=== PATIENT | male | born 1960 ===

== ENCOUNTER 2023-07-07 12:27 | Outpatient (REF) | payer OTHER, SELFPAY ==
[2023-07-07 13:15] LABS: MANUAL DIFF FLAG NO
[2023-07-07 13:21] LABS: Basophils Percent Auto 0.5 % (0-2); Eosinophils Percent Auto 0.5 % (0-4); Hematocrit 41.3 % (42.0-52.0); Hemoglobin 13.7 g/dl (14.0-18.0); Imm Gran Abs Auto 0.01 X10*3/uL (0.00-0.03); Imm Gran Pct Auto 0.2 % (0.0-0.4); Lymphocytes Percent Auto 31.5 % (20-40); Mean Corpuscular HGB Conc 33.2 g/dl (31.0-36.0); Mean Corpuscular Hemoglobin 29.8 pg (27.0-33.0); Mean Platelet Volume 10.9 fL (9.4-12.4); Monocytes Absolute Auto 0.5 X10*3/uL (0.1-1.2); Monocytes Percent Auto 7.2 % (2-11); Neutrophils Absolute Auto 3.8 x10*3/uL (2.0-8.3); Neutrophils Percent Auto 60.1 % (45-73); Platelet Count 183 X10*3/uL (160-400); Red Blood Count 4.59 X10*6/uL (4.60-5.80); Red Cell Distribution Width 15.1 % (11.0-16.0); White Blood Count 6.2 X10*3/uL (4.8-10.8)
[2023-07-07 13:34] LABS: Estimated Average Glucose 120 mg/dL; Hemoglobin A1c % 5.8 % (<6.0)
[2023-07-07 13:50] LABS: Rheumatoid Factor 36.9 IU/mL (<15.0)
[2023-07-07 13:56] LABS: Alanine Aminotransferase 25 U/L (0-40); Albumin Level 4.4 g/dL (3.5-5.0); Alkaline Phosphatase 94 U/L (39-117); Anion Gap 11 (12-20); Aspartate Amino Transferase 29 U/L (5-37); Bilirubin Total 0.5 mg/dL (0.0-1.0); Blood Urea Nitrogen 11 mg/dL (9-16); Calcium 8.9 mg/dL (8.4-10.2); Carbon Dioxide 24 mmol/L (22-29); Chloride 109 mmol/L (96-108); Cholesterol 160 mg/dL (<200); Estimated Glomerular Filt Rate > 60; Glucose Random 90 mg/dL (60-115); HDL Cholesterol 50 mg/dL (>40); LDL Cholesterol Calculated 101 mg/dL (<100); Potassium 3.7 mmol/L (3.3-5.1); Sodium 140 mmol/L (135-145); Total Protein 7.5 g/dL (6.5-8.0); Triglycerides 49 mg/dL (<150)
[2023-07-07 14:09] LABS: Erythrocyte Sedimentation Rate 6 MM/HR (0-15)
[2023-07-07 14:15] LABS: Hepatitis A Antibody IgG REACTIVE (Nonreactive); ~Hepatitis A Antibody IgG 6.84 S/CO (0.00-0.99)
[2023-07-07 14:17] LABS: HBS Num1 65.67 mIU/mL (0-7.99); HBc Num1 0.08 S/CO (0.00-0.79); Hepatitis B Core Antibody Nonreactive (Nonreactive); Hepatitis B Surface Antigen Negative (Negative); ~HepC Num1 0.18 S/CO (0.00-0.79); ~Hepatitis B Surface Antibody REACTIVE (Nonreactive); ~Hepatitis C Antibody Nonreactive (Nonreactive)
[2023-07-07 14:18] LABS: Syphilis Screen Reactive (Nonreactive)
[2023-07-07 15:03] LABS: CT PCR NOT DETECTED (Not Detect.); NG PCR NOT DETECTED (Not Detect.)
[2023-07-09 10:23] LABS: TS Negative Control Passed; TS Panel A 122; TS Panel B 226; TS Positive Control Passed; TSpotTB Positive (Negative)
[2023-07-12 14:48] LABS: Anti Nuclear Antibody Screen NEGATIVE (NEGATIVE)
[2023-07-18 15:36] LABS: RPR Quantitative Non-Reactive (Nonreactive); T.Pallidum Particle Agg Test Non-Reactive (Nonreactive)
== END 2023-07-07 12:28 | disposition home or self-care (01) ==
LOC: HO.HHCL 12:27
PROVIDERS: PCP Emergency Medicine; Visit Provider Internal Medicine
DX: Z11.4 Encounter for screening for human immunodeficiency virus [HIV] (principal); M25.50 Pain in unspecified joint; F11.20 Opioid dependence, uncomplicated; Z20.2 Contact with and (suspected) exposure to infections with a predominantly sexual mode of transmission; Z11.1 Encounter for screening for respiratory tuberculosis
CPT/HCPCS: 0353U; 36415; 80053; 80061; 83036; 85025; 85652; 86038; 86431; 86481; 86592; 86704; 86706; 86708; 86780; 86803; 87340

== ENCOUNTER 2023-07-23 12:42 | Outpatient (REF) | payer OTHER, SELFPAY ==
--- NOTE | ~2023-07-23 | US_ITS ---
EXAMINATION: US VENOUS ULTRASOUND WITH DOPPLER LOWER EXTREMITY, RIGHT CLINICAL INFORMATION: Swelling COMPARISON: None available. TECHNIQUE: Ultrasound of the deep veins is performed from the hip to the calf with compression sonography and color and pulse Doppler assessment. Spectral analysis with color-flow imaging is performed. FINDINGS: There is normal venous compression and respiratory variation and augmented flow. The visualized common femoral vein, superficial femoral vein, profunda femoral vein, popliteal vein, and the trifurcation region shows no evidence of deep venous thrombosis. There is no significant popliteal fossa cyst. If the patient's symptoms persist, followup ultrasound in 5 days 7 days might be of value to exclude proximal propagation from a non-visualized calf vein. US/US venous duplex LE RT IMPRESSION: No DVT demonstrated in the right lower extremity.
--- NOTE | ~2023-07-23 | XR_ITS ---
EXAMINATION: XR KNEE, RIGHT CLINICAL INFORMATION: Pain in right knee. COMPARISON: None available. TECHNIQUE: Three views of the right knee. FINDINGS: Small joint effusion. Bones are diffusely demineralized. Moderate lateral joint space narrowing. Tiny tricompartmental osteophytes. Anterior patellar spurs. XR/XR knee RT 3V IMPRESSION: Small joint effusion. Moderate lateral joint space narrowing.
== END 2023-07-23 12:43 | disposition home or self-care (01) ==
LOC: HO.US 12:42
PROVIDERS: PCP Internal Medicine; Visit Provider Emergency Medicine
DX: M25.561 Pain in right knee (principal); R60.0 Localized edema
CPT/HCPCS: 73562; 93971

== ENCOUNTER 2023-07-29 13:28 | Outpatient (AMB) | payer OTHER, SELFPAY ==
--- NOTE | 2023-07-29 13:31 | A.OFFVIS_ITS ---
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 Pt states that his LE is swollen, itching and painful. Does have knee issues as well. Pt states that he has not tried compression socks but does have a prescription. 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 He notes that it is right more so than left. He has a history significant for back and spine issues. He actually had a lumbar spine surgery dating back to 2015 at [facility] by Dr. Martah wing. He has some element of radiculopathy since that time. At the current time he describes pain throughout that entire right leg including the right knee which has been a source of di scomfort form. He was sent over by primary care team as they did notice some varicosities and swelling. Patient denies any previous venous surgery or injections. Patient denies any history of DVT/ PE. Patient denies any history of phlebitis. Trial of compression includes - [id number] They now present for vascular evaluation regarding their varicose veins. [facility] Medical History (Updated 07/29/23 @ 15:02 by Pedro Orozco MD) Diabetic acidosis, type II Social History (Updated 07/29/23 @ 13:53 by ROSINA Pradhan) Patient Tobacco Use Status: Current everyday Tobacco user Cigarettes Per Day: 3 Review of Systems Const Reports as per HPI ENT Reports no additional complaints Card Denies chest pain, Denies chest pain at rest and Denies chest pain with activity Resp Denies chest congestion and Denies cough GI Reports no additional complaints Musc Details: pain over varicosities, aching of lower extremities, swelling, cramping, heaviness and tiredness, itching Denies abnormal gait Skin/Breast Reports pruritus and Denies wounds Neuro Reports no additional complaints and Denies abnormal gait Psych Denies no additional complaints Physical Exam Vital Signs: BMI result Body Mass Index 28.4 Const General: cooperative, healthy appearing and comfortable Orientation/consciousness: oriented to person, oriented to place and oriented to time Neck Carotids: no bruits Chest Chest palpation & inspection: normal inspection of the chest and normal palpation of entire chest wall Resp Effort & Inspection: normal respiratory effort and able to speak in complete sentences Cardio Rate: regular rate Heart sounds: S1 normal heart sound present and S2 normal heart sound present Peripheral pulses: Peripheral pulses 2+ throughout GI Inspection: Yes normal to inspection Skin Other: +2 edema, large rope-like varicosities greater than 4 mm right calf and thigh CEAP Classification C4 - skin color changes Ep - Etiology Primary As - superficial veins P - reflux General skin exam: dry skin Neuro General: oriented to person, oriented to place and oriented to time Extrem Right lower extremity: full ROM, normal capillary refill and edema Left lower extremity: full ROM, normal capillary refill and edema Psych Mental Status: mental status grossly normal Assessment & Plan Assessment & Plan (1) Varicose veins of right lower extremity with inflammation: Code(s): I83.11 - Varicose veins of right lower extremity with inflammation Plan: In short patient has an element of venous insufficiency. He does have swelling and large varicosities. I have taken the liberty of ordering venous insufficiency testing to work that up and potentially treat his venous disease. I did make it clear that treating his venous disease will not fix his pain. The pain that he does describe is more neuropathic in nature and may be related to his lumbar spine. He did demonstrated understanding of that and did 1 move forward with workup of his venous disease. Thank you for allowing us to assist in his care. If there are any questions or concerns please do not hesitate to contact us Orders: Orders US venous duplex LE BI 1 Week I83.11 - Varicose veins of right lower extremity with inflammation Coding Level of Care Code New Pt Level 4 (62316) Diagnoses Varicose veins of right lower extremity with inflammation I83.11
[2023-07-29 13:53] VITALS: BMI 28.4
== END 2023-07-29 14:16 | disposition home or self-care (01) ==
PROVIDERS: Visit Provider Surgery Vascular Surgery
DX: I83.11 Varicose veins of right lower extremity with inflammation (principal)
CPT/HCPCS: 99204

== ENCOUNTER → 2023-07-29 13:28 | Outpatient (BNVA) | payer OTHER, SELFPAY | PROVIDERS: Visit Provider Surgery Vascular Surgery | DX: I83.11 Varicose veins of right lower extremity with inflammation (principal) | CPT/HCPCS: 99202 ==

== ENCOUNTER 2023-10-25 10:56 | Outpatient (REF) | payer OTHER, SELFPAY ==
[2023-10-27 22:04] LABS: TS Negative Control Passed; TS Panel A 106; TS Panel B 210; TS Positive Control Passed; TSpotTB Positive (Negative)
== END 2023-10-25 10:57 | disposition home or self-care (01) ==
LOC: HO.HHCL 10:56
PROVIDERS: Visit Provider Internal Medicine
DX: Z11.1 Encounter for screening for respiratory tuberculosis (principal); R63.4 Abnormal weight loss
CPT/HCPCS: 36415; 86481

== ENCOUNTER 2023-11-08 09:20 | Outpatient (REF) | payer OTHER, SELFPAY ==
--- NOTE | ~2023-11-08 | CT_ITS ---
EXAMINATION: CT ABDOMEN AND PELVIS WITH CONTRAST CLINICAL INFORMATION: Palpable epigastric mass, weight loss and vomiting COMPARISON: None available. TECHNIQUE: Multidetector volumetric images were obtained from the superior aspect of the liver through the pubic symphysis following administration 85 mL of Omnipaque 350 intravenous contrast. Sagittal and coronal reformatted images were obtained on the technologist's workstation. Oral contrast: Administrative This CT examination was performed using dose optimization techniques as appropriate, variously including the following: *Automated exposure control *Adjustment of mA and/or kV according to patient size (this includes techniques or standardized protocols for targeted exams where dose is matched to indication/reason for exam; i.e. extremities or head) *Use of iterative reconstruction technique DLP: 444 mGy-cm FINDINGS: LUNG BASES: The visualized lung bases are unremarkable. LIVER, GALLBLADDER, AND BILIARY TREE: The liver is normal in size, shape, and attenuation. No focal hepatic lesion or biliary ductal dilatation is present. The gallbladder is unremarkable with no evidence of radiopaque gallstones, gallbladder wall thickening, or obvious pericholecystic inflammatory changes. PANCREAS: Unremarkable. SPLEEN: Unremarkable. ADRENAL GLANDS: Unremarkable. KIDNEYS AND URETERS: The kidneys are normal in size, shape, and attenuation. No hydronephrosis, hydroureter, or calculi seen. No perinephric stranding. BLADDER: Limited evaluation of urinary bladder due to shadowing from left hip prosthesis GASTROINTESTINAL TRACT: The small and large bowel are unremarkable. The appendix is unremarkable. ABDOMINAL WALL: No significant hernia is appreciated. LYMPH NODES: Reactive appearing lymph nodes seen in the groins bilaterally. VASCULAR: Unremarkable. PELVIC VISCERA: Unremarkable. OSSEOUS STRUCTURES: There are degenerative changes at the level of L4-L5 with significant disc loss and subchondral sclerosis. There is facets arthropathy.. Patient is status post total hip replacement on the left. CT/CT abdomen pelvis w IV con IMPRESSION: 1. No abnormal findings. 2. Degenerative changes in the lower lumbar spine. 3. Reactive appearing lymph nodes in the groins bilaterally. 4. Limited evaluation of urinary bladder due to shadowing from left hip prosthesis. Fleischner guidelines were followed.
[2023-11-08 10:31] LABS: Alanine Aminotransferase 22 U/L (0-40); Albumin Level 4.2 g/dL (3.5-5.0); Alkaline Phosphatase 98 U/L (39-117); Anion Gap 10 (12-20); Aspartate Amino Transferase 23 U/L (5-37); Bilirubin Total 0.5 mg/dL (0.0-1.0); Blood Urea Nitrogen 17 mg/dL (9-16); Calcium 9.1 mg/dL (8.4-10.2); Carbon Dioxide 29 mmol/L (22-29); Chloride 104 mmol/L (96-108); Estimated Glomerular Filt Rate 56; Glucose Random 74 mg/dL (60-115); Potassium 4.4 mmol/L (3.3-5.1); Sodium 139 mmol/L (135-145); Total Protein 7.3 g/dL (6.5-8.0)
[2023-11-08] MEDS: iohexoL 350 MG/ML 100 ML INFUS..BTL 85 ML IV (12:10)
[2023-11-08] MEDS: Barium Sulfate Oral (Berry) 450 ML ORAL.SUSP 900 ML PO (12:23)
== END 2023-11-08 09:21 | disposition home or self-care (01) ==
LOC: HO.CT 09:20
PROVIDERS: PCP Internal Medicine; Visit Provider Internal Medicine
DX: R19.06 Epigastric swelling, mass or lump (principal); R63.4 Abnormal weight loss
CPT/HCPCS: 36415; 74177; 80053; Q9967

== ENCOUNTER 2023-11-22 09:18 | Outpatient (REF) | payer OTHER, SELFPAY ==
--- NOTE | ~2023-11-22 | XR_ITS ---
EXAMINATION: XR CHEST CLINICAL INFORMATION: Positive TB test. COMPARISON: None available. TECHNIQUE: 2 views of the chest were obtained. FINDINGS: The lungs are clear. The cardiomediastinal silhouette is normal in size. There is no pleural effusion or pneumothorax. No acute osseous abnormality. XR/XR chest 2V IMPRESSION: No acute cardiopulmonary findings.
== END 2023-11-22 09:19 | disposition home or self-care (01) ==
LOC: HO.HHCX 09:18
PROVIDERS: Visit Provider Internal Medicine
DX: R76.11 Nonspecific reaction to tuberculin skin test without active tuberculosis (principal)
CPT/HCPCS: 71046

== ENCOUNTER 2024-03-13 10:11 | Outpatient (REF) | payer OTHER, SELFPAY ==
--- NOTE | ~2024-03-13 | US_ITS ---
EXAMINATION: US LOWER EXTREMITY VENOUS (REFLUX EXAM), BILATERAL CLINICAL INDICATION: Perclose veins of the right lower leg COMPARISON: DVT ultrasound 07/23/2023 TECHNIQUE: Color flow triplex imaging and compression Doppler was performed to evaluate both the deep and the superficial systems bilaterally. To evaluate the superficial system, the examination was performed in the upright position. Color-flow Doppler ultrasound and compression ultrasound were utilized. In addition, maneuvers were utilized to demonstrate reflux. FINDINGS: 1. DEEP VENOUS ULTRASOUND OF THE RIGHT LOWER EXTREMITY: Common Femoral Vein: Compressible, normal respiratory variation and augmented flow. Femoral Vein: Compressible, normal color flow and augmentation. Popliteal Vein: Compressible, normal augmentation. Deep Reflux: There is no evidence of reflux in the deep system in either the common femoral vein or the popliteal vein. There is no evidence of a Rhoades's cyst. 2. SUPERFICIAL ULTRASOUND WITH DOPPLER OF RIGHT LOWER EXTREMITY: GREAT SAPHENOUS VEIN: Saphenofemoral Junction: 0.6 cm; Reflux: 0 ms Proximal Thigh: 0.5 cm; Reflux: 2472 ms Mid Thigh: 0.2 cm; Reflux: 0 ms Above Knee: 0.3 cm; Reflux: 0 ms At Knee: 0.2 cm; Reflux: 0 ms Below Knee: 0.3 cm; Reflux: 0 ms Mid Calf: 0.2 cm; Reflux: 0 ms Ankle: 0.3 cm; Reflux: 0 ms DUPLICATED MEDIAL GREAT SAPHENOUS VEIN: Diameter: None Imaged Reflux: NA DUPLICATED LATERAL GREAT SAPHENOUS VEIN: Diameter: 0.2 cm Reflux: 0 ms SMALL SAPHENOUS VEIN: Proximal: 0.3 cm; Reflux: 0 ms Distal: 0.2 cm; Reflux: 0 ms VEIN OF GIACOMINI: None Imaged. PERFORATORS: Location: Small saphenous vein distal Size: 0.3 cm Reflux: 0 ms Location: Great saphenous vein proximal calf Size: 0.2 cm Reflux: 0 ms Location: Great saphenous vein mid calf Size: 0.2 cm Reflux: 0 ms VARICOSITIES: Location: Small saphenous vein distal Size: 0.3 cm Reflux: 0 ms Location: Great saphenous vein proximal thigh Size: 0.3 cm Reflux: 0 ms Location: Great saphenous vein mid thigh Size: 0.4 cm Reflux: 1456 ms Location: Great saphenous vein at the knee Size: 0.4 cm Reflux: 0 ms Location: Great saphenous vein proximal calf Size: 0.4 cm Reflux: 0 ms Location: Great saphenous vein proximal calf Size: 0.3 cm Reflux: 0 ms Location: Great saphenous vein distal calf Size: 0.3 cm Reflux: 0 ms 3. DEEP VENOUS ULTRASOUND OF THE LEFT LOWER EXTREMITY: Common Femoral Vein: No DVT. Reflux of 920 ms. Femoral Vein: Compressible, normal color flow and augmentation. Popliteal Vein: Compressible, normal augmentation. Deep Reflux: There is no evidence of reflux in the deep system in either the common femoral vein or the popliteal vein. There is no evidence of a Rhoades's cyst. 4. SUPERFICIAL ULTRASOUND WITH DOPPLER OF LEFT LOWER EXTREMITY: GREAT SAPHENOUS VEIN: Saphenofemoral Junction: 0.9 cm; Reflux: 0 ms Proximal Thigh: 0.4 cm; Reflux: 0 ms Mid Thigh: 0.2 cm; Reflux: 0 ms Above Knee: 0.1 cm; Reflux: 0 ms At Knee: 0.2 cm; Reflux: 0 ms Below Knee: 0.2 cm; Reflux: 0 ms Mid Calf: 0.2 cm; Reflux: 1136 ms Ankle: 0.3 cm; Reflux: 0 ms DUPLICATED MEDIAL GREAT SAPHENOUS VEIN: Diameter: None Imaged Reflux: NA DUPLICATED LATERAL GREAT SAPHENOUS VEIN: Diameter: 0.2 cm Reflux: 0 ms SMALL SAPHENOUS VEIN: Proximal: 0.2 cm; Reflux: 0 ms Distal: 0.2 cm; Reflux: 0 ms VEIN OF GIACOMINI: None Imaged. PERFORATORS: Location: Great saphenous vein at the knee Size: 0.1 cm Reflux: 0 ms Location: Great saphenous vein distal calf Size: 0.2 cm Reflux: 0 ms Location: Great saphenous vein distal calf Size: 0.2 cm Reflux: 0 ms VARICOSITIES: Location: None Imaged Size: NA Reflux: NA US/US venous duplex LE BI IMPRESSION: 1. There is segmental reflux in the right great saphenous vein in the proximal thigh. 2. There is segmental reflux in the left great saphenous vein in the mid calf. 3. Deep system reflux in the left common femoral vein of 920 ms. 4. Numerous right sided varicosities with reflux of 1456 ms in the mid thigh. 5. Multiple non-refluxing perforators bilaterally.
== END 2024-03-13 10:12 | disposition home or self-care (01) ==
LOC: HO.US 10:11
PROVIDERS: PCP Internal Medicine; Visit Provider Surgery Vascular Surgery
DX: I83.11 Varicose veins of right lower extremity with inflammation (principal)
CPT/HCPCS: 93970

== ENCOUNTER 2024-05-03 09:52 | Outpatient (REF) | payer OTHER, SELFPAY ==
[2024-05-03 12:04] LABS: PSA,Total (Free>4and<10) 0.31 ng/mL (0.00-4.00)
== END 2024-05-03 09:53 | disposition home or self-care (01) ==
LOC: HO.HHCL 09:52
PROVIDERS: Visit Provider Internal Medicine
DX: N39.46 Mixed incontinence (principal); N40.1 Benign prostatic hyperplasia with lower urinary tract symptoms; Z12.5 Encounter for screening for malignant neoplasm of prostate
CPT/HCPCS: 36415; 84153

== ENCOUNTER 2024-05-04 12:48 | Outpatient (REF) | payer OTHER, SELFPAY ==
[2024-05-04 13:32] LABS: Appearance Urine Clear; Color Urine Yellow; Glucose Urine UA Negative (Negative); Leukocyte Esterase Urine Negative (Negative); Nitrite Urine Negative (Negative); PH 5.5 (5.0-9.0); Specific Gravity - Urine >= 1.030 (1.005-1.025); Urine Blood Negative (Negative); Urine Ketones Trace mg/dL (Negative); Urine Protein Negative (Neg-Trace)
[2024-05-04 13:36] LABS: Bacteria Urine None Seen (None Seen); Hyaline Casts Urine 0-2 /LPF (0-2); RBC Urine 0-2 /HPF (0-2); Squamous Epithelial Cell Urine 0-2 /HPF (0-2); WBC Urine 0-5 /HPF (0-5)
[2024-05-04 15:31] LABS: CT PCR NOT DETECTED (Not Detect.); NG PCR NOT DETECTED (Not Detect.)
== END 2024-05-04 12:49 | disposition home or self-care (01) ==
LOC: HO.HHCL 12:48
PROVIDERS: Visit Provider Internal Medicine
DX: N39.46 Mixed incontinence (principal)
CPT/HCPCS: 81001; 87491; 87591

== ENCOUNTER 2024-06-01 13:24 | Outpatient (AMB) | payer OTHER, SELFPAY ==
--- NOTE | 2024-06-01 13:30 | A.OFFVIS_ITS ---
Intake Visit Reasons: follow up s/p US 03/13/24 Intake Note: Patient presents for US. Patient states he has pain in both legs as well as swelling, cramping and pain to the touch. Accompanied by: Self / Same As Patient Allergies No Known Allergies Allergy (Verified 06/01/24 13:32) HPI HPI follow up s/p US 03/13/24: Details: Pleasant 63-year-old gentleman presents for follow-up regarding right lower extremity swelling. He reports that he has significant back and spine issues. He actually had lumbar spine surgery dating back to 2016. He has significant swelling on the right lower extremity in particular over the knee. He now presents for follow-up with venous insufficiency testing. He does have a large cluster of varicosities on the right medial thigh which have been a source of pain and discomfort for him. [facility] Medical History Lower urinary tract symptoms Weight loss Centrilobular emphysema Tobacco dependence Varicose veins of both lower extremities with inflammation Callus of foot Arthralgia BPH w urinary obs/LUTS Tinea pedis of both feet Type 2 diabetes mellitus with hyperglycemia, with long-term current use of insulin Hammer toes of both feet Opioid use disorder Left foot pain Uncomplicated opioid dependence CAD (coronary artery disease) Diabetic acidosis, type II Surgical History History of heart artery stent Status post left hip replacement Social History Household Members: Spouse Housing: House Patient Tobacco Use Status: Current everyday Tobacco user Cigarettes Per Day: 7 Review of Systems Const All systems reviewed & are unremarkable except as noted in HPI and below Reports no additional complaints ENT Reports Normal hearing present Card Denies chest pain, Denies chest pain at rest, Denies chest pain with activity and Denies pedal edema Resp Denies cough GI Denies abdominal pain Musc Denies abnormal gait, Denies muscle cramps and Denies radiating pain into limb Skin/Breast Denies skin ulcer and Denies wounds Neuro Reports Normal hearing present and Denies abnormal gait Psych Reports no additional complaints Physical Exam Const General: cooperative, healthy appearing and comfortable Orientation/consciousness: oriented to person, oriented to place and oriented to time HEENT Head: Yes normal to inspection Neck Neck: Yes normal visual inspection Carotids: no bruits Chest Chest palpation & inspection: normal inspection of the chest Resp Effort & Inspection: normal respiratory effort and able to speak in complete sentences Auscultation: clear to auscultation bilaterally, no crackles, no rales, no rhonchi and no wheezes Cardio Rate: regular rate Rhythm: regular rhythm Heart sounds: S1 normal heart sound present and S2 normal heart sound present Bruits: no carotid bruits Peripheral pulses: Peripheral pulses 2+ throughout GI Inspection: Yes normal to inspection Skin Wounds: no wounds Hair: normal Neuro General: oriented to person, oriented to place and oriented to time Cranial nerves: Yes CN's II-XII intact bilaterally and Yes Normal hearing present Cognition (Neuro): normal cognition Motor exam (neuro): 5/5 motor strength present throughout Extrem Other: venous exam: No significant superficial varicosities or spider telangiectasias, minimal edema General: No clubbing, No cyanosis and No edema Psych Appearance: grossly normal Mental Status: mental status grossly normal Speech and movement: Normal speech and movement present Results Reviewed Results Reviewed: Brief summary of venous insufficiency testing is as follows: right great saphenous vein: Only focally positive at proximal thigh right small saphenous vein: negative right accessory vein: none present left great saphenous vein: negative left small saphenous vein: negative left accessory vein: none present Please note there is no evidence of any venous aneurysms or significant tortuosity Assessment & Plan Assessment & Plan (1) Varicose veins of right lower extremity with inflammation: Code(s): I83.11 - Varicose veins of right lower extremity with inflammation Category: Medical Plan: This patient has varicose veins with inflammation. They continue to be a source of discomfort for the patient. The patient has tried conservative treatment with compression, leg elevation and exercise program for over 3 months time. They have been compliant with all treatment. This has provided minimal relief for the patient. I do not anticipate this course of treatment will alter the underlying etiology. The patient has been scheduled for lower extremity venous treatment inclusive of --- right leg microphlebectomy. Risks, benefits, and complications of this procedure has been discussed in detail with the patient including but not limited to bleeding, infection, and the development of a DVT. The patient has demonstrated a clear understanding and has consented. We will schedule the patient as soon as possible. Thank you for allowing us to participate in this patient's care. If there are any questions or concerns please do not hesitate to contact us. (2) Right knee pain: Code(s): M25.561 - Pain in right knee Category: Medical Qualifiers: Chronicity: chronic Qualified Code(s): M25.561 - Pain in right knee; G89.29 - Other chronic pain Plan: In addition the patient does complain of right knee discomfort. He has been more chronic in nature. I do believe there may be an element of an infusion there as well I did discuss this with him and he actually does have a follow-up scheduled with Orthopedics and June 16. Once again I do believe that his lower extremity swelling may be multifactorial in nature. This may be from his venous disease in addition to an element of lymphedema along with the osteo from right knee. We will treat the venous disease. Thank you for allowing us to assist in his care. Coding Level of Care Code Est Pt Level 4 (18149) Diagnoses Varicose veins of right lower extremity with inflammation I83.11 Chronic pain of right knee M25.561; G89.29 Chronicity: chronic
== END 2024-06-01 13:53 | disposition home or self-care (01) ==
PROVIDERS: PCP Internal Medicine; Visit Provider Surgery Vascular Surgery
DX: I83.11 Varicose veins of right lower extremity with inflammation (principal); M25.561 Pain in right knee; G89.29 Other chronic pain
CPT/HCPCS: 99214

== ENCOUNTER → 2024-06-01 13:24 | Outpatient (BNVA) | payer OTHER, SELFPAY | PROVIDERS: PCP Internal Medicine; Visit Provider Surgery Vascular Surgery | DX: I83.11 Varicose veins of right lower extremity with inflammation (principal); I83.811 Varicose veins of right lower extremity with pain; M25.561 Pain in right knee; G89.29 Other chronic pain | CPT/HCPCS: 99212 ==

== ENCOUNTER 2024-06-06 17:46 | Outpatient (REF) | payer OTHER, SELFPAY ==
[2024-06-06 18:22] LABS: Appearance Urine Clear; Color Urine Yellow; Glucose Urine UA Negative (Negative); Leukocyte Esterase Urine Negative (Negative); Nitrite Urine Negative (Negative); PH 5.5 (5.0-9.0); Specific Gravity - Urine >= 1.030 (1.005-1.025); Urine Blood Negative (Negative); Urine Ketones Trace mg/dL (Negative); Urine Protein Trace mg/dL (Neg-Trace)
[2024-06-06 18:35] LABS: Bacteria Urine None Seen (None Seen); RBC Urine 0-2 /HPF (0-2); Squamous Epithelial Cell Urine 0-2 /HPF (0-2); WBC Urine 0-5 /HPF (0-5)
== END 2024-06-06 17:47 | disposition home or self-care (01) ==
LOC: HO.HHCLNP 17:46
PROVIDERS: Visit Provider Family Medicine
DX: R31.0 Gross hematuria (principal)
CPT/HCPCS: 81001

== ENCOUNTER 2024-06-15 10:42 | Outpatient (AMB) | payer OTHER, SELFPAY ==
--- NOTE | 2024-06-15 08:04 | MHC.OFFVIS ---
Intake Visit Reasons: nocturia Intake Note: Patient is present for [facility] Medication:NONE Antibiotic Allergy:NONE Blood Thinner:NONE TODAY'S PVR: 0ML'S [employer] Cook Required: No Allergies No Known Allergies Allergy (Verified 06/15/24 10:50) Medication List - Last Reconciled 06/15/24 by Penelope Rosario MD amlodipine 10 mg PO DAILY aspirin 1 tab PO DAILY blood sugar diagnostic (FreeStyle Lite Strips) As directed dupilumab (Dupixent) mg subcut losartan 25 mg PO DAILY metoprolol succinate ER 25 mg PO DAILY pregabalin 75 mg PO BID solifenacin (Vesicare) 5 mg PO DAILY tadalafil (Cialis) 5 mg PO DAILY HPI Comments Details: Adriana is a 63-year-old male who is here with complaints of urinary frequency both day and nighttime. He also states that sometimes he gets the urge and he will leak before getting to the bathroom. He has also noticed decrease in erections. I have discussed trial of daily Cialis for erectile dysfunction as well as trial of anticholinergic VESIcare 5 mg for overactive bladder symptoms. 05/03/24--0.31 ng/mL Reviewed CTAP-11/08/23 [facility] Medical History Lower urinary tract symptoms Weight loss Centrilobular emphysema Tobacco dependence Varicose veins of both lower extremities with inflammation Callus of foot Arthralgia BPH w urinary obs/LUTS Tinea pedis of both feet Type 2 diabetes mellitus with hyperglycemia, with long-term current use of insulin Hammer toes of both feet Opioid use disorder Left foot pain Uncomplicated opioid dependence CAD (coronary artery disease) Diabetic acidosis, type II Surgical History History of heart artery stent Status post left hip replacement Social History Household Members: Spouse Housing: House Patient Tobacco Use Status: Current everyday Tobacco user Cigarettes Per Day: 7 Review of Systems Const All systems reviewed & are unremarkable except as noted in HPI and below Reports no additional complaints Eyes Reports no additional complaints ENT Reports no additional complaints Card Reports no additional complaints Resp Reports no additional complaints GI Reports no additional complaints Reports as per HPI Musc Reports no additional complaints Skin/Breast Reports system reviewed and no additional complaints, except as documented Neuro Reports no additional complaints Psych Reports no additional complaints Endo Reports no additional complaints Anam/Lymph Reports no additional complaints Aller/Immun Reports no additional complaints Physical Exam Const General: healthy appearing, no acute distress and well developed Orientation/consciousness: patient oriented x3 HEENT Head: Yes normocephalic and Yes atraumatic Eyes Conjunctivae: conjunctivae normal Neck Neck: Yes normal visual inspection Chest Chest palpation & inspection: normal inspection of the chest Resp Effort & Inspection: normal respiratory effort Cardio Rate: regular rate GI Inspection: Yes normal to inspection Neuro General: patient oriented x3 Extrem General: No pedal edema Psych Appearance: grossly normal Affect: normal affect Office Procedures Post Void Residual Post Residual Void Post Void Residual (PVR): 0 [id number] Void Residual by ultrasound Results AMB Urinalysis, Automated UA Leukoctes 0 Vickey/uL Last Edit by JANE Antoine on 06/15/24 11:04 UA Nitrite Negative Last Edit by JANE Antoine on 06/15/24 11:04 UA Urobilinogen 0.2 mg/dL Last Edit by JANE Antoine on 06/15/24 11:04 UA Protein 30 mg/dL Last Edit by JANE Antoine on 06/15/24 11:04 UA pH 5.5 Last Edit by JANE Antoine on 06/15/24 11:04 UA Blood 0 Sami/uL Last Edit by JANE Antoine on 06/15/24 11:04 UA Specific Derby 1.030 Last Edit by JANE Antoine on 06/15/24 11:04 UA Ketone Positive Last Edit by JANE Antoine on 06/15/24 11:04 UA Bilirubin 1 mg/dL Last Edit by JANE Antoine on 06/15/24 11:04 UA Glucose 0 mg/dL Last Edit by JANE Antoine on 06/15/24 11:04 Results Reviewed Results Reviewed: Laboratory Last Values Urine pH (Auto) 5.5 06/15/24 11:03 Specific Derby (Auto) 1.030 06/15/24 11:03 Urine Protein (Auto) 30 mg/dL 06/15/24 11:03 Glucose (UA)(Auto) 0 mg/dL 06/15/24 11:03 Urine Ketones (Auto) Positive 06/15/24 11:03 Urine Blood (Auto) 0 Sami/uL 06/15/24 11:03 Urine Nitrite (Auto) Negative 06/15/24 11:03 Urine Bilirubin (Auto) 1 mg/dL 06/15/24 11:03 Urine Urobilinogen (Auto) 0.2 mg/dL 06/15/24 11:03 Leukocyte Esterase (Auto) 0 Vickey/uL 06/15/24 11:03 Date of Service: 11/08/23 CT ABDOMEN AND PELVIS WITH CONTRAST CLINICAL INFORMATION: Palpable epigastric mass, weight loss and vomiting COMPARISON: None available. TECHNIQUE: Multidetector volumetric images were obtained from the superior aspect of the liver through the pubic symphysis following administration 85 mL of Omnipaque 350 intravenous contrast. Sagittal and coronal reformatted images were obtained on the technologist's workstation. Oral contrast: Administrative This CT examination was performed using dose optimization techniques as appropriate, variously including the following: *Automated exposure control *Adjustment of mA and/or kV according to patient size (this includes techniques or standardized protocols for targeted exams where dose is matched to indication/reason for exam; i.e. extremities or head) *Use of iterative reconstruction technique DLP: 444 mGy-cm FINDINGS: LUNG BASES: The visualized lung bases are unremarkable. LIVER, GALLBLADDER, AND BILIARY TREE: The liver is normal in size, shape, and attenuation. No focal hepatic lesion or biliary ductal dilatation is present. The gallbladder is unremarkable with no evidence of radiopaque gallstones, gallbladder wall thickening, or obvious pericholecystic inflammatory changes. PANCREAS: Unremarkable. SPLEEN: Unremarkable. ADRENAL GLANDS: Unremarkable. KIDNEYS AND URETERS: The kidneys are normal in size, shape, and attenuation. No hydronephrosis, hydroureter, or calculi seen. No perinephric stranding. BLADDER: Limited evaluation of urinary bladder due to shadowing from left hip prosthesis GASTROINTESTINAL TRACT: The small and large bowel are unremarkable. The appendix is unremarkable. ABDOMINAL WALL: No significant hernia is appreciated. LYMPH NODES: Reactive appearing lymph nodes seen in the groins bilaterally. VASCULAR: Unremarkable. PELVIC VISCERA: Unremarkable. OSSEOUS STRUCTURES: There are degenerative changes at the level of L4-L5 with significant disc loss and subchondral sclerosis. There is facets arthropathy.. Patient is status post total hip replacement on the left. IMPRESSION: 1. No abnormal findings. 2. Degenerative changes in the lower lumbar spine. 3. Reactive appearing lymph nodes in the groins bilaterally. 4. Limited evaluation of urinary bladder due to shadowing from left hip prosthesis. Assessment & Plan Assessment & Plan (1) Urinary frequency: Code(s): R35.0 - Frequency of micturition Category: Medical (2) Nocturia: Code(s): R35.1 - Nocturia Category: Medical (3) Erectile dysfunction: Code(s): N52.9 - Male erectile dysfunction, unspecified Category: Medical Plan Daily Cialis, VESIcare 5 mg daily Orders: Orders AMB Urinalysis Automated Today Z13.9 - Encounter for screening, unspecified Medications: New solifenacin (Vesicare) 5 mg PO DAILY 30 tabs 3RF For urinary frequency tadalafil (Cialis) USE COUPON ATTACHED [id number] [facility] [id number] Member [id number] 5 mg PO DAILY 30 tabs 3RF Coding Level of Care Code New Pt Level 4 (22409) Diagnoses Urinary frequency R35.0 Nocturia R35.1 Erectile dysfunction N52.9 CPT Codes Post Residual Void - PVR CPT Code: 23100-Miuc Void Residual by ultrasound ([id number])
== END 2024-06-15 11:31 | disposition home or self-care (01) ==
LOC: HO.HUSH 10:42
PROVIDERS: PCP Internal Medicine; Visit Provider Urology
DX: R35.0 Frequency of micturition (principal); R35.1 Nocturia; N52.9 Male erectile dysfunction, unspecified; Z13.9 Encounter for screening, unspecified
CPT/HCPCS: 99204

== ENCOUNTER → 2024-06-15 10:42 | Outpatient (BNVA) | payer OTHER, SELFPAY | PROVIDERS: PCP Internal Medicine; Visit Provider Urology | DX: R35.0 Frequency of micturition (principal); R35.1 Nocturia; N52.9 Male erectile dysfunction, unspecified | CPT/HCPCS: 51798; 81003; 99202 ==

== ENCOUNTER 2024-06-20 12:46 | Outpatient (REF) | payer OTHER, SELFPAY | END 2024-06-20 12:47 | disposition home or self-care (01) | LOC: HO.US 12:46 | PROVIDERS: PCP Internal Medicine; Visit Provider Family Medicine | DX: R31.0 Gross hematuria (principal) | CPT/HCPCS: 76775 ==

== ENCOUNTER 2024-06-21 15:33 | Outpatient (REF) | payer OTHER, SELFPAY ==
[2024-06-21 16:54] LABS: Appearance Urine Clear; Color Urine Yellow; Glucose Urine UA Negative (Negative); Leukocyte Esterase Urine Negative (Negative); Nitrite Urine Negative (Negative); PH 5.5 (5.0-9.0); Specific Gravity - Urine 1.025 (1.005-1.025); Urine Blood Negative (Negative); Urine Ketones Negative (Negative); Urine Protein Negative (Neg-Trace)
== END 2024-06-21 15:34 | disposition home or self-care (01) ==
LOC: HO.HHCL 15:33
PROVIDERS: Visit Provider Internal Medicine
DX: R31.9 Hematuria, unspecified (principal)
CPT/HCPCS: 81003; 87086

== ENCOUNTER 2024-07-04 09:09 | Outpatient (REF) | payer OTHER, SELFPAY ==
--- NOTE | ~2024-07-04 | XR_ITS ---
EXAMINATION: XR KNEE LEFT CLINICAL INFORMATION: Pain in unspecified knee M25.569. COMPARISON: None available. TECHNIQUE: Three views of the left knee. FINDINGS: Medial compartment narrowing. Small marginal osteophytes in the patellofemoral compartment. No significant joint effusion. Prominent enthesopathy of the patella. XR/XR knee LT 3V IMPRESSION: Mild medial and patellofemoral compartment osteoarthritis. Electronically signed by: Williams Mcelroy MD 08/29/2024 12:06 PM [facility]
--- NOTE | ~2024-07-04 | XR_ITS ---
EXAMINATION: XR KNEE RIGHT CLINICAL INFORMATION: Pain in unspecified knee M25.569. COMPARISON: XR Right knee 07/23/2023 TECHNIQUE: Three views of the right knee. FINDINGS: Mild tricompartmental osteoarthritis with a moderate joint effusion. No fracture. Prominent patellar enthesopathy. XR/XR knee RT 3V IMPRESSION: Mild tricompartmental osteoarthritis with a moderate joint effusion. Electronically signed by: Williams Mcelroy MD 08/29/2024 12:06 PM [facility]
== END 2024-07-04 09:10 | disposition home or self-care (01) ==
LOC: HO.HOSX 09:09
PROVIDERS: Visit Provider Physician Assistant
DX: M17.0 Bilateral primary osteoarthritis of knee (principal); E11.9 Type 2 diabetes mellitus without complications
CPT/HCPCS: 20610; 73562; 99202; J1010; J2003

== ENCOUNTER 2024-07-04 10:27 | Outpatient (AMB) | payer OTHER, SELFPAY ==
--- NOTE | 2024-07-04 10:47 | A.OFFVIS_ITS ---
Intake Visit Reasons: New Pt - B/L knee pain Intake Note: Delvin is a 63 year old male who presents today as a new patient for a evaluation of his bilateral knee pain. No hx of injury. Patient reports his pain is worse on the right knee than the left knee. Patient mentions that his pain is ongoing for 3 years. He states that his pain is worse when he is getting up from the sitting position and walking. No previous treatment. Allergies No Known Allergies Allergy (Verified 07/04/24 10:56) HPI HPI New Pt - B/L knee pain: Details: 63-year-old male who presents in the office today, as a new patient, for an evaluation of bilateral knee pain. The patient was seen by Dr. Karlene Sexton on 05/18/24 for bilateral knee pain / osteoarthritis, which is worse in the right knee than left knee. The patient has tried and failed physical therapy in the past. He was referred to [facility] for further evaluation. While in the office today, the patient reports bilateral knee pain, right knee is worse than the left knee. He mentions ongoing pain for the past 3 years. He reports worsening when he moves from sitting to standing position and during ambulation. He reports frequent numbness and tingling sensation in the bilateral lower extremities that radiates from the knee to his feet. He had no previous treatments. The patient has a medical history of varicose veins in the bilateral lower extremity and is following up with Vascular Surgery. He also has a medical history of type 2 diabetes mellitus. The patient has a surgical history of spinal fusion in 2016. 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 Callus of foot Arthralgia BPH w urinary obs/LUTS Tinea pedis of both feet Type 2 diabetes mellitus with hyperglycemia, with long-term current use of insulin Hammer toes of both feet Opioid use disorder Left foot pain Uncomplicated opioid dependence CAD (coronary artery disease) Diabetic acidosis, type II Surgical History History of heart artery stent Status post left hip replacement Social History (Updated 07/04/24 @ 10:59 by Faustino Villareal) Household Members: Spouse Housing: House Alcohol intake: never Patient Tobacco Use Status: Current everyday Tobacco user Cigarettes Per Day: 3 Current occupational status: disabled Review of Systems Const All systems reviewed & are unremarkable except as noted in HPI and below Physical Exam Const General: cooperative and no acute distress Orientation/consciousness: patient oriented x3 Resp Effort & Inspection: normal respiratory effort and able to speak in complete sentences Cardio Peripheral pulses: Peripheral pulses 2+ throughout Skin General skin exam: no rashes or lesions noted Lesions: no lesions Rashes: no rashes Neuro General: patient oriented x3 Extrem Other: Left knee: Normal to inspection. No ecchymosis, erythema, or joint effusion. No tenderness to palpation medial or lateral joint line. Negative Juanita's. able to perform a straight leg raise. Right knee: Tenderness to palpation over the medial and lateral joint lines. Extreme tenderness. Unable to assess anterior drawer or Juanita's due to patient guarding and pain. Able to perform a straight leg raise. Psych Appearance: well kempt Mental Status: mental status grossly normal Office Procedures AMB Joint Injection/Aspiration Joint Injection/Aspiration Primary Site: right knee Prep: site was prepped using aseptic technique, ethochloride spray was applied and injection warnings given Injected: 40 mg of, DepoMedrol, with 8 mL of (2% plain lido ) and in the joint Approach Used: anterolateral Procedure: The patient tolerated the procedure well, but had some pain with the injection and there was some relief with the local anesthesia Coding 60415 - Large joint Procedure code (CPT) selection complete Assessment & Plan Assessment & Plan (1) Osteoarthritis of knees, bilateral: Code(s): M17.0 - Bilateral primary osteoarthritis of knee Category: Medical (2) Diabetes: Code(s): E11.9 - Type 2 diabetes mellitus without complications Category: Medical Plan Mr. Michelle is a 63-year-old male who presents in the office today, as a new patient, for an evaluation of bilateral knee pain. The patient was seen by Dr. Karlene Sexton on 05/18/24 for bilateral knee pain/ osteoarthritis, which is worse in the right knee than left knee. The patient has tried and failed physical therapy in the past. He was referred to [facility] for further evaluation. While in the office today, the patient reports bilateral knee pain, right knee is worse than the left knee. He mentions ongoing pain for the past 3 years. He reports worsening when he moves from sitting to standing position and during ambulation. He reports frequent numbness and tingling sensation in the bilateral lower extremities that radiates from the knee to his feet. He had no previous treatments. The patient has a medical history of varicose veins in the bilateral lower extremity and is following up with Vascular Surgery. He also has a medical history of type 2 diabetes mellitus. The patient has a surgical history of spinal fusion in 2016. He had a reinjury to the L4 that occurred after his spinal fusion. The patient was offered a cortisone injection in the right knee with 40 mg of Depo-Medrol. The patient was explained the risks, benefits, and alternatives to receiving this injection. After receiving consent for the injection, the patient had the procedure done while in the office today. The patient tolerated the procedure well with no complication. Due to the patient?s history of diabetes, they were instructed to monitor his blood glucose level. The patient was informed that they could see a rise in their numbers and if the numbers became too high, they were instructed to call their PCP. The patient was also informed that they could have facial flushing as a side effect of the injection, but this will pass. I would like him to get evaluated by Dr. King for further evaluation and treatment of his lower back pain. Follow-up will be PRN with me, or sooner if needed. X-rays of the bilateral knees, which were obtained while in the office today and were reviewed by me, Thi eVliz PA-C, revealed: bilateral knee osteoarthritis. Ultrasound of the bilateral lower extremities, obtained on 03/13/24, revealed: 1. There is segmental reflux in the right great saphenous vein in the proximal thigh. 2. There is segmental reflux in the left great saphenous vein in the mid calf. 3. Deep system reflux in the left common femoral vein of 920 ms. 4. Numerous right sided varicosities with reflux of 1456 ms in the mid thigh. 5. Multiple non-refluxing perforators bilaterally. Orders: Orders XR knee RT 3V 07/04/24 M25.569 - Pain in unspecified knee XR knee LT 3V 07/04/24 M25.569 - Pain in unspecified knee Patient Instructions: Scribed by Shauna Cummins, medical office coordinator, for Thi Veliz PA-C on 07/04/2024 at 11:29 am EST. Coding Level of Care Code New Pt Level 4 (12747) Diagnoses Osteoarthritis of knees, bilateral M17.0 Diabetes E11.9 CPT Codes Coding - 98766 Large joint: 38128 - Large joint ([id number])
== END 2024-07-04 11:20 | disposition home or self-care (01) ==
PROVIDERS: PCP Internal Medicine; Visit Provider Physician Assistant
DX: M17.0 Bilateral primary osteoarthritis of knee (principal); E11.9 Type 2 diabetes mellitus without complications
CPT/HCPCS: 20610; 99204

== ENCOUNTER 2024-07-25 14:34 | Emergency (ER) | payer OTHER, SELFPAY ==
[2024-07-25 14:41] VITALS: BP 174/92; PULSE 62; O2SAT 99
[2024-07-25 15:10] VITALS: BP 151/67; PULSE 60; RESP 20; TEMP 36.4; O2SAT 99; BMI 31.6
[2024-07-25 16:12] LABS: Influenza A PCR NEGATIVE (Negative); Influenza B PCR NEGATIVE (Negative); Resp Syncy Virus RNA Qual PCR NEGATIVE (Negative); SARS COV2 PCR INHOUSE NEGATIVE (Negative)
--- NOTE | 2024-07-25 16:44 | ED_ITS ---
HPI - General Adult General Chief complaint: General Medical Stated complaint: LOWER EXT /BACK PAINX'S DAYS,LIM TODAY PER EMS Time Seen by Provider: 07/25/24 16:38 Source: patient Mode of arrival: ambulatory Limitations: no limitations History of Present Illness ED Provider: Nir HPI narrative: Patient is a 63-year-old male with history of DM, bilateral knee OA, varicose veins presenting to the emergency department with complaint of lower back and right knee pain. Saw ortho one month ago and received steroid injection to right knee, denies any relief of pain since. States has previously had good relief of pain from steroid injections to his hip. Also reports recent falls due to right knee giving out and complains of lower back pain related to this. Denies head strike or loss of consciousness, states he usually tries to land on his right side. He is not anticoagulated. Denies fevers, chills, sweats. Taking Lyrica with little relief. Denies saddle anesthesia or bowel or bladder incontinence. MD complaint: back and knee pain Onset (ago): week(s) Treatments prior to arrival: other Related Data Home Medications ?Medication ?Instructions ?Recorded ?Confirmed amlodipine 10 mg tablet 10 mg PO DAILY 07/29/23 06/15/24 aspirin 81 mg chewable tablet 1 tab PO DAILY 07/29/23 06/15/24 losartan 25 mg tablet 25 mg PO DAILY 07/29/23 06/15/24 metoprolol succinate 25 mg 25 mg PO DAILY 07/29/23 06/15/24 tablet,extended release 24 hr pregabalin 75 mg capsule 75 mg PO BID 07/29/23 06/15/24 Previous Rx's ?Medication ?Instructions ?Recorded solifenacin 5 mg tablet (Vesicare) 5 mg PO DAILY For urinary 06/15/24 frequency #30 tabs tadalafil 5 mg tablet (Cialis) 5 mg PO DAILY #30 tabs 06/15/24 lidocaine 5 % topical patch 1 patch topical DAILY #15 ea 07/25/24 Allergies Allergy/AdvReac Type Severity Reaction Status Date / Time No Known Allergies Allergy Verified 07/25/24 15:12 Review of Systems Review of Systems: As per hpi Yes all other systems are reviewed and are negative Constitutional: Constitutional: Reports as per HPI PMFSH Past Medical History Medical History Lower urinary tract symptoms Weight loss Centrilobular emphysema Tobacco dependence Varicose veins of both lower extremities with inflammation Callus of foot Arthralgia BPH w urinary obs/LUTS Tinea pedis of both feet Type 2 diabetes mellitus with hyperglycemia, with long-term current use of insulin Hammer toes of both feet Opioid use disorder Left foot pain Uncomplicated opioid dependence CAD (coronary artery disease) Diabetic acidosis, type II Surgical History History of heart artery stent Status post left hip replacement Social History Social History (Updated 07/04/24 @ 10:59 by Faustino Villareal) Household Members: Spouse Housing: House Alcohol intake: never Patient Tobacco Use Status: Current everyday Tobacco user Cigarettes Per Day: 3 Advance Directives: No Advance Directives Information Provided: No Current occupational status: disabled Physical Exam ED Vital Signs: Vital Signs - 24 hr 07/25/24 15:10 07/25/24 17:19 Temperature 97.6 F 98.1 F Pulse Rate 60 72 Respiratory Rate 20 16 Blood Pressure 151/67 H 168/91 H Pulse Oximetry 99 99 Oxygen Delivery Method Room Air Room Air BMI result Body Mass Index 31.6 Vital signs have been reviewed and appear to be correct. Blood pressure elevated. Heart rate normal. Respiratory rate normal. Temperature normal. Oxygen saturation normal. Const General: cooperative, healthy appearing and no acute distress Orientation/consciousness: oriented to person, oriented to place, oriented to time and patient oriented x3 Limitations: no limitations [facility] Head: Yes normocephalic and Yes atraumatic Ears: external ears normal General nose exam: Normal external nose present Face and sinus: Yes face symmetric Mouth: oropharynx normal and moist mucous membranes Throat: Yes uvula midline Eyes Pupils: Equal, round and reactive pupils present Neck Neck: Yes normal visual inspection and Yes supple Resp Effort & Inspection: normal respiratory effort and able to speak in complete sentences Auscultation: clear to auscultation bilaterally Cardio Rate: regular rate Rhythm: regular rhythm Heart sounds: S1 normal heart sound present and S2 normal heart sound present GI Palpation (GI): Soft to palpation and nontender Auscultation: normoactive bowel sounds General: Yes no CVA tenderness Back/Spine/Pelvis Back: no CVA tenderness Thoracic/Lumbar Spine: thoracic and lumbar spine normal to inspection, thoraco- lumbar ROM normal, straight leg raise negative bilaterally, pain with thoraco- lumbar ROM, paraspinal muscle tenderness bilaterally in the upper lumbar, No thoracic spinal tenderness and No lumbar spinal tenderness Skin General skin exam: elasticity normal and turgor normal Neuro General: oriented to person, oriented to place, oriented to time, patient oriented x3, gait normal, tone normal, moves all extremities, Normal light touch and pain sensation, no focal motor deficits, CN's II-XI intact bilaterally and deep tendon reflexes 2+ bilaterally Cranial nerves: Yes Equal, round and reactive pupils present Cognition (Neuro): normal cognition Motor exam (neuro): 5/5 motor strength present throughout Extrem General: Yes full ROM, Yes no pedal edema and Yes no calf tenderness Right lower extremity: knee Details: tenderness Location: of the medial joint line and of the lateral joint line, swelling (diffuse), normal ROM, knee ligament exam normal and crepitus and foot Details: vascular exam Details: dorsalis pedis pulse present, posterior tibial pulse present and normal capillary refill Psych Mental Status: mental status grossly normal Affect: normal affect Thought process: Normal thought process present Medications Administered Discontinued Medications Generic Name Dose Route Start Last Admin Trade Name Freq PRN Reason Stop Dose Admin Ketorolac Tromethamine 30 mg 07/25/24 17:57 07/25/24 18:03 Ketorolac Tromethamine 30 Mg/Ml Vial IM 07/25/24 17:58 30 mg ONCE ONE Administration Medical Decision Making Medical Decision Making [facility] Narrative: Patient is a 63-year-old male with history of DM, bilateral knee OA, varicose veins presenting to the emergency department with complaint of lower back and right knee pain. On exam patient is awake, A+Ox3, VS WNL, afebrile, normal neurological exam without focal deficits, physical exam findings as above. Given reported symptoms and physical exam findings, initial differential includes acute on chronic pain, lumbar strain, osteoarthritis. Do not suspect septic joint. Viral serology negative. Initially discussed with patient that I would like to obtain a lumbar x-ray given his report of recent falls as well as an ultrasound to rule out DVT. Patient was initially agreeable to this, then refused all imaging when techs arrived at bedside. Patient stating he is here for pain control only. Denies chest pain, palpitations, dyspnea, and states his right lower leg is no more swollen than baseline. IM toradol ordered in the ED with good relief of pain. Will discharge home with topical lidocaine patches as patient states this has helped him in the past. Return precautions discussed. Follow up with PCP and orthopedics. Patient verbalized understanding of and agreement with plan. * The patient has decided to leave against medical advice because he refused lumbar xray and right LE ultrasound. * They have normal mental status and adequate capacity to make medical decisions. * The risks have been explained to the patient, including fracture, DVT, PE, worsening illness, chronic pain, permanent disability and .. * The patient was able to understand and state the risks and benefits of refusing imaging as ordered. This was witnessed by nurse Robledo and me. * They had the opportunity to ask questions about their medical condition. * The patient was treated to the extent that they would allow and knows that they may return for care at any time. Differential Diagnosis Differential Diagnoses: The differential diagnosis associated with the presentation includes as per [facility] Admission/Observation Consideration of admission/observation: Escalation of care including admission/observation considered Patient would have been admitted to the hospital had their work up had any findings where hospital admission was appropriate and their clinical presentation warranted hospital admission. Lab Data [facility] Lab Attestation statement: I reviewed the patient's lab results. as per [facility] Labs: Lab Results 07/25/24 Range/Units 15:22 Influenza Type A (PCR) NEGATIVE (Negative) Influenza Type B (PCR) NEGATIVE (Negative) RSV RNA Qual (PCR) NEGATIVE (Negative) SARS-CoV-2 RNA (RT-PCR) NEGATIVE (Negative) External Record Review External record reviewed: Inpatient record, Office record and Outpatient record Tests considered The following testing was considered but not selected: Ordered lumbar spine xray and right lower extremity ultrasound which patient refused. Prescription Management I considered prescription management with: Pain Medication Discharge Plan Discharge Clinical Impression: Chronic pain of right knee Patient Disposition: Left Against Medical Advice Instructions: Osteoarthritis (ED), Chronic Pain (ED) Additional Instructions: You were evaluated in the emergency department today for lower back and right knee pain. You were treated with pain medication in your pain improved. You are being prescribed topical lidocaine patches which you can apply to painful areas for up to 12 hours in a 24 hour period. Do not apply heat directly over the patches. You refused an x-ray and ultrasound at today's visit. Return to the emergency department if you develop chest pain, palpitations, shortness of breath, weakness, numbness, or tingling to your legs, fevers, or any other new or concerning symptoms. Follow up with your primary care provider and orthopedics. Prescriptions: New lidocaine 5 % adhesive patch,medicated 1 patch topical DAILY Qty: 15 0RF Rx Instructions: leave on most painful area for up to 12 hrs No Action solifenacin [Vesicare] 5 mg tablet 5 mg PO DAILY Qty: 30 3RF tadalafil [Cialis] 5 mg tablet 5 mg PO DAILY Qty: 30 3RF Rx Instructions: USE COUPON ATTACHED [id number] [facility] [id number] Member [id number] aspirin 81 mg tablet,chewable 1 tab PO DAILY pregabalin 75 mg capsule 75 mg PO BID amlodipine 10 mg tablet 10 mg PO DAILY losartan 25 mg tablet 25 mg PO DAILY metoprolol succinate 25 mg tablet extended release 24 hr 25 mg PO DAILY [place] [facility] [place]Provider Group] Stand Alone Forms: Against Medical Advice Print Language: Citizen Of [place]
[2024-07-25 17:19] VITALS: BP 168/91; PULSE 72; RESP 16; TEMP 36.7; O2SAT 99
--- NOTE | 2024-07-25 17:44 | PC.NURSE ---
pt refused all imaging - pt refused CT scan and US and says I'm not here for that
[2024-07-25] MEDS: Ketorolac Tromethamine 30 MG/ML VIAL IM (18:03)
[2024-07-25 18:41] VITALS: BP 168/91; PULSE 72; RESP 16; TEMP 36.7; O2SAT 99
== END 2024-07-25 18:41 | disposition left against medical advice (07) ==
PROVIDERS: Emergency Provider Internal Medicine; PCP Internal Medicine
DX: M25.561 Pain in right knee (principal); G89.29 Other chronic pain; M54.50 Low back pain, unspecified; E11.9 Type 2 diabetes mellitus without complications; I25.10 Atherosclerotic heart disease of native coronary artery without angina pectoris; Z79.899 Other long term (current) drug therapy; Z03.818 Encounter for observation for suspected exposure to other biological agents ruled out
CPT/HCPCS: 0241U; 96372; 99283; 99284; J1885

== ENCOUNTER → 2024-09-08 09:23 | Outpatient (BNVA) | payer OTHER, SELFPAY | PROVIDERS: PCP Internal Medicine; Visit Provider Surgery Vascular Surgery | DX: I83.11 Varicose veins of right lower extremity with inflammation (principal) | CPT/HCPCS: 37765; J2003 ==

== ENCOUNTER 2024-10-03 08:42 | Outpatient (AMB) | payer OTHER, SELFPAY ==
--- NOTE | 2024-10-03 09:01 | MHC.OFFVIS ---
Intake Visit Reasons: 2 week follow s/p Right leg Micro 09/08/24 Intake Note: Patient states he has pain that comes and goes . States it is not intense but bothers him. Accompanied by: Self / Same As Patient Allergies No Known Allergies Allergy (Verified 10/03/24 09:02) HPI HPI 2 week follow s/p Right leg Micro 09/08/24: Details: Very pleasant 63-year-old gentleman presents for follow-up status post microphlebectomy. Reports overall pain and discomfort have significantly improved. He has some very mild postprocedure phlebitis. Otherwise doing very well. Now presents for routine follow-up. [facility] Medical History Lower urinary tract symptoms Weight loss Centrilobular emphysema Tobacco dependence Varicose veins of both lower extremities with inflammation Callus of foot Arthralgia BPH w urinary obs/LUTS Tinea pedis of both feet Type 2 diabetes mellitus with hyperglycemia, with long-term current use of insulin Hammer toes of both feet Opioid use disorder Left foot pain Uncomplicated opioid dependence CAD (coronary artery disease) Diabetic acidosis, type II Surgical History History of heart artery stent Status post left hip replacement Social History Household Members: Spouse Housing: House Alcohol intake: never Patient Tobacco Use Status: Current everyday Tobacco user Cigarettes Per Day: 3 Current occupational status: disabled Review of Systems Const All systems reviewed & are unremarkable except as noted in HPI and below Reports no additional complaints ENT Reports Normal hearing present Card Denies chest pain, Denies chest pain at rest, Denies chest pain with activity and Denies pedal edema Resp Denies cough GI Denies abdominal pain Musc Denies abnormal gait, Denies muscle cramps and Denies radiating pain into limb Skin/Breast Denies skin ulcer and Denies wounds Neuro Reports Normal hearing present and Denies abnormal gait Psych Reports no additional complaints Physical Exam Const General: cooperative, healthy appearing and comfortable Orientation/consciousness: oriented to person, oriented to place and oriented to time HEENT Head: Yes normal to inspection Neck Neck: Yes normal visual inspection Carotids: no bruits Chest Chest palpation & inspection: normal inspection of the chest Resp Effort & Inspection: normal respiratory effort and able to speak in complete sentences Auscultation: clear to auscultation bilaterally, no crackles, no rales, no rhonchi and no wheezes Cardio Rate: regular rate Rhythm: regular rhythm Heart sounds: S1 normal heart sound present and S2 normal heart sound present Bruits: no carotid bruits Peripheral pulses: Peripheral pulses 2+ throughout GI Inspection: Yes normal to inspection Skin Wounds: no wounds Hair: normal Neuro General: oriented to person, oriented to place and oriented to time Cranial nerves: Yes CN's II-XII intact bilaterally and Yes Normal hearing present Cognition (Neuro): normal cognition Motor exam (neuro): 5/5 motor strength present throughout Extrem Other: venous exam: No significant superficial varicosities or spider telangiectasias, minimal edema General: No clubbing, No cyanosis and No edema Psych Appearance: grossly normal Mental Status: mental status grossly normal Speech and movement: Normal speech and movement present Assessment & Plan Assessment & Plan (1) Varicose veins of right lower extremity with inflammation: Comment: 09/08/2024 - right leg microphlebectomy Code(s): I83.11 - Varicose veins of right lower extremity with inflammation Category: Medical Plan: The patient has done extremely well with all venous treatments. Patient's may often experience postprocedure phlebitic episodes and I have discussed with the patient use of warm compresses and NSAIDS if tolerated for pain discomfort. In addition, I have discussed continued conservative measures including use of compression, leg elevation, and exercise. The patient was also given an information sheet regarding appropriate use of compression stockings and future purchases. Thank you for allowing us to care for your patient with venous disease. Coding Level of Care Code Est Pt Level 3 (08638) Diagnoses Varicose veins of right lower extremity with inflammation I83.11
--- OUTSIDE RECORDS SUMMARY | 2024-10-03 09:09 | XMS_ITS | Encounter Summary ---
Author Organization [employer] Address [address] [place] [address] Care Team Providers Care Career Technical Counselor Name Role Phone Karlene Roldan MD Primary Care Provider + Reason for Visit * Reason Comments Med Refill Encounter Details Date Type Department Care Team ([facility] st Contact Info) Description 07/02/2024 Refill [facility] [address] [place], [place] [phone] Fernanda Evangelista BDS Social History Tobacco Use Types Packs/Day Years Used Date Smoking Tobacco: Some Days Cigarettes Last attempted to quit: 10/01/2023 Smokeless Tobacco: Never Alcohol Use Standard Drinks/Week Comments Not Currently 0 (1 standard drink = 0.6 oz pur e alcohol) PHQ-2 Answer Date Recorded Patient Health Questionnaire-2 Score 0 04/03/2023 Depression Answer Date Recorded Patient Health Questionnaire-9 Score 6 03/09/2023 Housing Stability Answer Date Recorded What is your housing situation today? I have christiane calhoun 05/31/[address] you li ve. Do you have problems with any of the following? None of the above 05/31/2023 Food Insecurity Answer Date Recorded Within the past 12 months, y ou worried that your food would run out before you got money to buy more: Never True 05/31/2023 Within the past 12 months,th e food you bought just didn't last and you didn't have enough money to get more: Never True Transportation Answer Date Recorded In the past 12 months, has l ack of transportation kept you from medical appts, meetings, work or from getting things needed for daily living? No 05/31/2023 Utilities Answer Date Recorded In the past 12 months, has t he electric, gas, oil or water company threatened to shut off services in your home? No 05/31/2023 Depression Answer Date Recorded Patient Health Questionnaire-2 Score 0 04/03/2023 Sex and Gender Information Value Date Recorded Sex Assigned at Male 03/02/2023 11:40 AM EDT Legal Sex Male 11:38 AM EDT Gender Identity Male 03/02/2023 11:40 AM EDT Sexual Orientation Straight 03/02/2023 11 :40 AM EDT documented as of this encounter Miscellaneous Notes * Telephone Encounter - Issac Dias DMD - 07/03/2024 7:53 AM EST Approving, but needs appt for additional refills. documented in this encounter Plan of Treatment Not on file documented as of this encounter Visit Diagnoses Not on filedocumented in this encounter Additional Health Concerns Assessment Noted Time PHQ-9 Depression Total Score: 6 03/09/20 11:28 AM EDT documented as of this encounter Care Teams Career Technical Counselor Relationship Specialty Start Date End Date Karlene Roldan MD [address] [place] [id number] PCP - General Internal Medicine 04/03/23 documented as of this encounter
--- OUTSIDE RECORDS SUMMARY | 2024-10-03 09:09 | XMS_ITS | Encounter Summary ---
Author Organization [employer] Address [address] [place] [address] Care Team Providers Care Operations Recruiter Name Role Phone Karlene Roldan MD Primary Care Provider + Reason for Visit * Reason Comments Med Refill Encounter Details Date Type Department Care Team ([facility] st Contact Info) Description 03/26/2023 Refill [facility] [address] [place], [place] [phone] Niels Sterling MD [address] [place] [address] Uncomplicated opioid dependence (CMS/HCC) Social History Tobacco Use Types Packs/Day Years Used Date Smoking Tobacco: Every Day Cigarettes Smokeless Tobacco: Never Alcohol Use Standard Drinks/Week Comments Not Currently 0 (1 standard drink = 0.6 oz pur e alcohol) PHQ-2 Answer Date Recorded Patient Health Questionnaire-2 Score 0 03/09/2023 Depression Answer Date Recorded Patient Health Questionnaire-9 Score 6 03/09/2023 Sex and Gender Information Value Date Recorded Sex Assigned at Male 03/02/2023 11:40 AM EDT Legal Sex Male 11:38 AM EDT Gender Identity Male 03/02/2023 11:40 AM EDT Sexual Orientation Straight 03/02/2023 11 :40 AM EDT documented as of this encounter Plan of Treatment Not on file documented as of this encounter Visit Diagnoses Diagnosis Uncomplicated opioid dependence (CMS/HCC) documented in this encounter Additional Health Concerns Assessment Noted Time PHQ-9 Depression Total Score: 6 03/09/20 23 11:28 AM EDT documented as of this encounter Care Teams Operations Recruiter Relationship Specialty Start Date End Date Karlene Roldan MD [address] [place] [id number] PCP - General Internal Medicine 04/03/23 documented as of this encounter
--- OUTSIDE RECORDS SUMMARY | 2024-10-03 09:09 | XMS_ITS | Encounter Summary ---
Author Organization [employer] Address [address] [place] [address] Care Team Providers Care Child Day Care Teacher Name Role Phone Karlene Roldan MD Primary Care Provider + Reason for Visit * Reason Comments Med Refill Encounter Details Date Type Department Care Team ([facility] st Contact Info) Description 05/28/2023 Refill [facility] [address] [place], [place] [phone] Karlene Roldan MD [address] [place], [place] [phone] Lumbar radiculopathy Social History Tobacco Use Types Packs/Day Years [...] as of this encounter Visit Diagnoses Diagnosis Lumbar radiculopathy Thoracic or lumbosacral neuritis or radiculitis, unspecified documented in this encounter Additional Health Concerns Assessment Noted Time PHQ-9 Depression Total Score: 6 03/09/20 23 11:28 AM EDT documented as of this encounter Care Teams Child Day Care Teacher Relationship Specialty Start Date End Date Karlene Roldan MD [address] [place] [address] PCP - General Internal Medicine 04/03/23 documented as of this encounter
--- OUTSIDE RECORDS SUMMARY | 2024-10-03 09:09 | XMS_ITS | Encounter Summary ---
Author Organization [employer] Address [address] [place] [address] Care Team Providers Care Residential Property Manager Name Role Phone Karlene Roldan MD Primary Care Provider + Encounter Details Date Type Department Care Team ([facility] st Contact Info) Description 10/26/2023 Telephone [facility] [address] [place], [place] [phone] Karlene Roldan MD [address] [place], [place] [phone] Social History Tobacco Use Types Packs/Day Years Used Date Smoking Tobacco: Former Cigarettes Q uit: 10/01/2023 Smokeless Tobacco: Never Alcohol Use Standard [...] documented as of this encounter Care Teams Residential Property Manager Relationship Specialty Start Date End Date Karlene Roldan MD [address] [place] [phone] PCP - General Internal Medicine 04/03/23 documented as of this encounter
--- OUTSIDE RECORDS SUMMARY | 2024-10-03 09:09 | XMS_ITS | Encounter Summary ---
Author Organization [facility] Address [address] [place] [address] Care Team Providers Care Lpn Rn Hospice Name Role Phone Karlene Roldan MD Primary Care Provider [phone] Reason for Visit * Reason Onset Date Comments postpone surgery 09/18/2024 Encounter Details Date Type Department Care Team (Late st Contact Info) Description 09/18/2024 Telephone Orthopedic Surgery - [place] [address] [phone] Sergio Barry, DPM [address] [phone] postpone surgery Social History Tobacco Use Types Packs/Day Years Used Date Smoking Tobacco: Former Cigarettes 0.5 27.4 0 1988 - 03/16/2016 Smokeless Tobacco: Never Alcohol Use Standard Drinks/Week Comments No 0 (1 standard drink = 0.6 oz pur e alcohol) Sex and Gender Information Value Date Recorded Sex Assigned at Not on file Legal Sex Male 4:03 AM EST Gender Identity Not on file Sexual Orientation Not on file documented as of this encounter Progress Notes * Lida Graham - 09/18/2024 12:23 PM EST Patient's spouse , Maryann, is calling on behalf of her spouse, she states that he needs to wait tohave Surgery until maybe March, as he has other Medical issues that he is dealing with., and she is also having upcoming Surgery, and she is his Caregiver. Any questions please call back @ [phone]. Thanks. documented in this encounter Plan of Treatment Upcoming Encounters Date Type Department Care Team (Late st Contact Info) Description 11/08/2024 9:45 AM EDT Office Visit Orthopedic Surgery - [place] [id number] [phone] Sergio Barry, DPM [address] [phone] documented as of this encounter Visit Diagnoses Not on filedocumented in this encounter Care Teams Lpn Rn Hospice Relationship Specialty Start Date End Date Karlene Roldan MD [address] [place] [phone] PCP - General 05/07/23 documented as of this encounter
--- OUTSIDE RECORDS SUMMARY | 2024-10-03 09:09 | XMS_ITS | Clinical Summary ---
Author Organization [employer] Address [address] [place] [address] Care Team Providers Care Movie Editor Name Role Phone Karlene Chamorro MD Primary Care Provider + Allergies Active Allergy Reactions Criticality Noted Date Comments Ibuprofen Swelling Low 07/29/2021 Leg swelling reported Medications loperamide (Imodium A-D) 2 MG tabletIndication s:Opioid use disorder 1 or 2 tabs PO initially, then 1 tab PO q4 hours prn diarrhea. 10 tablet 023 Active atorvastatin (Lipitor) 80 MG tablet Take 80 mg by mouth in the morning. 023 Active Bisacodyl EC 5 MG EC tablet TAKE 2 TABLETS BY MOUTH RIGHT BEFORE YOUR FIRST DOSE OF LIQUID PREP. 023 Active Dupixent 300 MG/2ML injection 023 Active metoprolol succinate XL (Toprol-XL) 25 MG 24 hr tablet Take 12.5 mg by mouth 2 times daily. 023 Active Buprenorphine HCl-Naloxone HCl (Suboxone) 8-2 MG SL filmIndications: Uncomplicated opioid dependence (CMS/HCC) Place 1 Film under the tongue in the morning for 7 days. 7 Film 023 Active docusate sodium (Colace) 100 MG capsuleIndicatio ns:Uncomplicated opioid dependence (CMS/HCC) TAKE 1-2 CAPSULES BY MOUTH AT BEDTIME NEEDED FOR CONSTIPATION 60 capsule 2 024 Active buPROPion XL (Wellbutrin XL) 150 MG 24 hr tablet Take 1 tablet (150 mg) by mouth in the morning. Do not crush, chew, or split. 30 tablet 6 04/11/2 024 2024 Active nicotine (Nicoderm CQ) 7 MG/24HR patchIndications :Tobacco use disorder Apply one or 2 patches daily as instructed. 30 patch 024 Active nicotine polacrilex (Commit) 2 MG lozengeIndicatio ns:Tobacco use disorder DISSOLVE 1 LOZENGE BY MOUTH EVERY 2 TO 4 HOURS NEEDED instead OF cigarette 72 lozenge 2 Active chlorhexidine (Peridex) 0.12 % solution SWISH 15 ML BY MOUTH FOR 30 SECONDS THEN SPIT OUT TWICE DAILY. DO NOT RINSE 473 mL 024 Active amLODIPine (Norvasc) 10 MG tabletIndication s:Essential (primary) hypertension TAKE 1 TABLET BY MOUTH EVERY DAY 90 tablet 11 024 Active losartan (Cozaar) 25 MG tabletIndication s:Type 2 diabetes mellitus without complications (CMS/HCC) TAKE 1 TABLET BY MOUTH EVERY DAY 90 tablet 024 Active Aspirin Low Dose 81 MG chewable tabletIndication s:Atheroscleroti c heart disease of [place] coronary artery without angina pectoris CHEW 1 TABLET BY MOUTH EVERY DAY 30 tablet 11 024 Active famotidine (Pepcid) 20 MG tabletIndication s:Dyspepsia TAKE 1 TABLET BY MOUTH TWICE DAILY 60 tablet 025 Active pregabalin (Lyrica) 150 MG capsuleIndicatio ns:Chronic bilateral low back pain without sciatica TAKE 1 CAPSULE BY MOUTH THREE TIMES DAILY 120 capsule 025 Active famotidine (Pepcid) 20 MG tabletIndication s:Dyspepsia TAKE 1 TABLET BY MOUTH TWICE DAILY 60 tablet 024 2024 Discontinued(R eorder (will not trigger notification to Pharmacy)) pregabalin (Lyrica) 150 MG capsuleIndicatio ns:Chronic bilateral low back pain without sciatica TAKE 1 CAPSULE BY MOUTH three times DAILY 120 capsule 024 2024 Discontinued Active Problems Problem Noted Date Diagnosed Date Hematuria 06/21/2024 Assessment & Plan (06/21/2024 3:49 PM EST): I will treat empirically for a UTI Renal US is pending Continue to f/u with urology and PCP Gross hematuria 06/06/2024 Assessment & Plan (06/06/2024 3:01 PM EDT): Pt with evidence of gross hematuria from penis, per picture. No pain or injury to the penis or testicles. Has follow-up with Urology. -ordered urine and kidney us 06/06/24 Mixed stress and urge urinary incontinence 04/28 Assessment & Plan (04/28/2024 2:55 PM EDT): Need to follow up with Urologist. Ordered UA culture and r/o STIs and treat accordingly. Gave them information to reschedule with Urologist. Primary osteoarthritis of right knee 04/28/2024 Assessment & Plan (04/28/2024 2:55 PM EDT): Failed PT, will refer to Orthopaedic. Use cane for ambulation to prevent falls. Depression, recurrent 11/25/2023 Assessment & Plan (11/25/2023 3:16 PM EDT): Patient has mostly anxiety, agreed to start Wellbutrin. FU in 1mo TB lung, latent 11/25/2023 Assessment & Plan (11/25/2023 3:11 PM EDT): Will address at next visit, unclear if patient has had INH proph. Arthritis of right hip 11/25/2023 Assessment & Plan (11/25/2023 3:14 PM EDT): I gave info re stretching exercises Use tylenol prn, RTC prn RA (obstructive sleep apnea) 11/25/2023 Overview (11/25/2023): Sleep study at [place] (see [place] [facility] records) showed AHI 26 Epigastric pain 10/21/2023 Assessment & Plan (11/25/2023 3:25 PM EDT): Due to hx smoking + weight loss, I will refer to GI ([place]). Counseled to quit smoking Advised to monitor fgtsk prn hypoglycemic sxs. FU in 2-3m, consider dc Trulicity if GI w/u is NEG, recent CT scan abd is not showing source of pain. Assessment & Plan (10/21/2023 3:33 PM EST): Seems to be related to dyspepsia? I would like to hold Trulicty x 1mo , but patient declines to do it. He tells me he has never had side effects from it in the past (despite agreeing to having abd sxs for long time). Today pt has actually gained some wt. I told him to keep symptoms diary and fu with me next mo CT scan abdomen and labs are pending I will try to obtain previous reports of EGD, he has colonoscopy scheduled in the next few wks. I Will FU after that Counseled regarding keeping a Sx diary, avoid smoking or recreational substances. Centrilobular emphysema 10/21/2023 Assessment & Plan (10/21/2023 2:02 PM EST): Diagnosis found on CT scan in 2020 from [facility], probably at the time of ACS. Pt seems to have be unaware of diagnosis, I explained that it could have been related to previous smoking and that I was glad that he had quit smoking for that long FU at next appointment and will treat PRN symptoms Will consider PFT's in the future Weight loss 10/21/2023 Assessment & Plan (04/28/2024 2:56 PM EDT): Resolved, continue off Trulicity. Follow up weight at each visit. Assessment & Plan (11/25/2023 3:31 PM EDT): See epigastric pain, will ro malignancy Consider DC Trulicity if GI w/u is negative. Assessment & Plan (10/21/2023 2:00 PM EST): Seems to have been resolved, wt was checked twice today and it was 198 lbs again. FU at next appointment Lower urinary tract symptoms (LUTS) 10/21/2023 Assessment & Plan (10/21/2023 3:34 PM EST): Refer to urology, ro BPH History of heart artery stent 10/18/2023 Tobacco dependence 07/19/2023 Assessment & Plan (11/25/2023 3:22 PM EDT): Agreed to start nicotine patch 7 mg + Wellbutrin, had side effects on Ch[place]ix FU 4-5w Hammer toes of both feet 06/02/2023 Assessment & Plan (10/21/2023 2:00 PM EST): Followed by podiatry, pt is scheduled for a surgery next month Assessment & Plan (06/02/2023 12:52 PM EDT): FU with podiatry Will obtain updated Xrays at next appt and discuss surgical options Type 2 diabetes mellitus wit h hyperglycemia, with long-term current use of insulin 06/02/2023 Assessment & Plan (04/28/2024 2:56 PM EDT): Controlled. A1c is at goal. Pt is off Trulicity. Counseled re more frequent low calorie/carb meals. Encouraged physical activity as tolerated. FU in 3-4 months. Assessment & Plan (11/25/2023 3:15 PM EDT): Controlled, no change on POC for now. FU in 2-3m, see previous month Assessment & Plan (10/21/2023 3:34 PM EST): Probably controlled, last A1c was 5.8 We discussed about adjusting Trulicity due to optimal A1c and GI Sx, but he declined Continue Trulicity 1.5 mg FU 3 month Assessment & Plan (06/02/2023 12:54 PM EDT): Controlled. A1c is at goal. Continue on Trulicity, unclear if he'll continue to FU with [facility] end[facility]. I will rx Trulicity if needed. Counseled re more frequent low calorie/carb meals. Check fgstk 1x daily Encouraged physical activity as tolerated. FU in 4 months. Tinea pedis of both feet 06/02/2023 Assessment & Plan (06/02/2023 12:51 PM EDT): Keep toes clean and dry Use clotrimazole cream + Zinc oxide ointment on affected interdigital areas Benign localized prostatic h yperplasia with lower urinary tract symptoms (LUTS) 06/02/2023 Assessment & Plan (04/28/2024 2:54 PM EDT): Gave them information to reschedule appointment with Urologist. Assessment & Plan (06/02/2023 12:51 PM EDT): Fu with urology on October 2023 Will start flomax if sxs do not improve with water restriction after 7pm FU in 5w Arthralgia 06/02/2023 Assessment & Plan (06/02/2023 12:53 PM EDT): It could be related to lumbar radiculopathy + opiate related hyperalgesia? Order labs to ro inflammatory arthritis. Use Tylenol 1000mg at bedtime x 1-2w Order NCS to ro neuropathy FU in 5w Callus of foot 06/02/2023 Assessment & Plan (06/02/2023 12:52 PM EDT): FU by podiatry Likely recurrent due to foot deformities? 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 Refer to vascular surgery Uncomplicated opioid dependence 04/03/2023 Assessment & Plan (11/25/2023 3:30 PM EDT): >>ASSESSMENT AND PLAN FOR OPIOID USE DISORDER WRITTEN ON 04/03/2023 12:25 PM BY KARLENE CHAMORRO MD Suboxone clinic notes reviewed, seems to be doing wellwith 1x/d dosing, continue close fu with them. PDMP reviewed, last suboxone fill was on 03/26 x 7 days. Rx for suboxone x 3 doses only sent to [facility] pharmacy in [place] as he missed regular pharmacy pickle cutter yesterday and it is closed for the weekend, he has mild withdrawal sxs. Patient will pickle cutter remaining dose on Wednesday, will contact his suboxone provider to fu with him. Assessment & Plan (10/21/2023 1:58 PM EST): Seems to be resolved according to pt. He has not been on suboxone for at least 6 months and denies opioid craving or relapse Fu PRN Assessment & Plan (06/02/2023 12:55 PM EDT): Off suboxone for 2w, apparently with mild Residual withdrawal, reportedly with no cravings. Counseled to avoid using recreational substances, re consult prn opiate cravings Left foot pain 04/03/2023 Assessment & Plan (04/03/2023 12:26 PM EDT): Unclear if related to neuropathy. PDMP reviewed, last lyrica fill was on 12/18/21. Restart Lyrica and use tylenol prn. May need a cane for ambulation, will fu in 1m for an OV and exam. CAD (coronary artery disease) 07/24/2021 Overview (04/03/2023): Sp STEMI and PCI/stent to RCA ([facility] hta). ECG with LVH + EF 75% -Metoprolol tartrate 12.5 mg twice daily -He was on Ticagrelor x 1y, no off. -Losartan 25 mg daily -Atorvastatin 80 mg daily -Aspirin 81 mg daily Assessment & Plan (11/25/2023 3:12 PM EDT): He's CP free, sees cardiology Continue Metoprolol, losartan, asa, atorvastatin Counseled to quit smoking Assessment & Plan (04/03/2023 11:52 AM EDT): He's CP free. Sp STEMI and PCI at outside hospital 07/13/2021 per previous records in [facility]. Continue current meds: -Metoprolol tartrate 12.5 mg twice daily -Losartan 25 mg daily -Atorvastatin 80 mg daily -Aspirin 81 mg daily -Counseled to quit smoking. -Will fu with cardiology Lumbar radiculopathy 09/07/2019 Overview (11/25/2023): Had PT, epidural injections in the past. Last Assessment & Plan: According to discharge paperwork from [facility], he was discharged on methocarbamol, which we will continue as needed, as well as Tylenol for pain. Assessment & Plan (04/28/2024 2:54 PM EDT): Increased Lyrica to 150 mg BID and follow up in 3-4 months. Assessment & Plan (11/25/2023 3:05 PM EDT): Continue lyrica for now. He agreed to try home stretching exercises and call back prn if he wants PT referral (he's been to PT and epidurals int he past). Use Tylenol prn Recommended acupuncture clinic, infor provided to patient. Assessment & Plan (06/02/2023 12:50 PM EDT): Continue same dose of lyrica for now until he gets NCS. Continue methocarbamol, recommended exercises and fu with me in 1m Assessment & Plan (04/03/2023 11:51 AM EDT): He could be having exacerbation of pain at this time, radiated to left leg/foot. Will restart low dose Lyrica and titrate up, continue methocarbamol and fu w me in 1m Obtain records form [facility] pain clinic/neurology Status post left hip replacement 04/12/2019 Encounters Date Type Department Care Team Description 09/20/2024 Telephone [facility] [address] [place] [address] Karlene Chamorro MD 09/19/2024 Telephone [facility] [address] [place] [address] Karlene Chamorro MD Chart prep 09/16/2024 Refill [facility] [address] [place] [address] Maria Del Rosario Haddad, REMY Chronic bilateral low back pain without sciatica 09/14/2024 Telephone [facility] [address] [place] [address] Karlene Chamorro MD 09/07/2024 Refill [facility] [address] [place] [address] Karlene Chamorro MD Dyspepsia 09/07/2024 Patient Outreach [facility] [address] [place] [phone] Karlene Chamorro MD Pre-visit Planning (SDOH screening negative and tobacco screening positive) 08/01/2024 Telephone [facility] [address] [place] [phone] Karlene Chamorro MD Appointment Request 07/31/2024 4:00 PM EST Office Visit [facility] [address] [place] [phone] Maria Del Rosario Haddad, REMY Chronic bilateral low back pain without sciatica (Primary Dx); Primary osteoarthritis of right knee; Pain in both lower extremities 07/28/2024 Telephone [facility] [address] [place] [phone] Karlene Chamorro MD No Show 07/26/2024 Refill [facility] [address] [place] [phone] Karlene Chamorro MD Essential (primary) hypertension; Type 2 diabetes mellitus without complications ([facility]); Atherosclerotic heart disease of [place] coronary artery without angina pectoris 07/21/2024 Patient Outreach [facility] [address] [place] [phone] Karlene Chamorro MD Pre-visit Planning ((Unable to complete for PVP screening, waas currently in an appointment) 07/16/2024 Refill [facility] [address] [place] [phone] Karlene Chamorro MD Lumbar radiculopathy 07/05/2024 Refill [facility] [address] [place] [phone] Karlene Chamorro MD Dyspepsia from Last 3 Months Immunizations Name Administration Dates Next Due Influenza injectable quadrivalent preservative f ree 08/01/2021 Social History Tobacco Use Types Packs/Day Years Used Date Smoking Tobacco: Some Days Cigarettes Last attempted to quit: 10/01/2023 Smokeless Tobacco: Never Tobacco Cessation:Ready to Q uit: Not Asked; Counseling Given: Not Answered Alcohol Use Standard Drinks/Week Comments Not Currently 0 (1 standard drink = 0.6 oz pur e alcohol) PHQ-2 Answer Date Recorded Patient Health Questionnaire-2 Score 0 04/03/2023 Depression Answer Date Recorded Patient Health Questionnaire-9 Score 6 03/09/2023 Housing Stability Answer Date Recorded What is your housing situation today? I have christianebruce calhoun 09/07/[address] you li ve. Do you have problems with any of the following? None of the above 09/07/2024 Food Insecurity Answer Date Recorded Within the past 12 months, y ou worried that your food would run out before you got money to buy more: Never True 09/07/2024 Within the past 12 months,th e food you bought just didn't last and you didn't have enough money to get more: Never True Transportation Answer Date Recorded In the past 12 months, has l ack of transportation kept you from medical appts, meetings, work or from getting things needed for daily living? No 09/07/2024 Utilities Answer Date Recorded In the past 12 months, has t he electric, gas, oil or water company threatened to shut off services in your home? No 09/07/2024 Depression Answer Date Recorded Patient Health Questionnaire-2 Score 0 04/03/2023 Internet Access Answer Date Recorded Internet Access Q1 Yes 09/07/2024 Internet Access Q2 Not on file 09/07/2024 Sex and Gender Information Value Date Recorded Sex Assigned at Male 03/02/2023 11:40 AM EDT Legal Sex Male 11:38 AM EDT Gender Identity Male 03/02/2023 11:40 AM EDT Sexual Orientation Straight 03/02/2023 11 :40 AM EDT Last Filed Vital Signs Vital Sign Reading Time Taken Comments Blood Pressure 134/87 07/31/2024 4:06 PM EST Pulse 68 07/31/2024 4:06 PM EST Temperature 36.6 ??C (97.8 ??F) 07/31/2024 4:06 PM ES T Respiratory Rate 18 07/31/2024 4:06 PM EST Oxygen Saturation 98% 06/21/2024 3:04 PM EST Inhaled Oxygen Concentration - - Weight 88 kg (194 lb) 06/21/2024 3:04 PM EST Height 177.8 cm (5' 10 ) 06/06/2024 2:45 PM EDT Body Mass Index 27.84 06/06/2024 2:45 PM EDT Plan of Treatment Health Maintenance Due Date Last Done Comments CT Colonography 1958 Colonoscopy 1958 Colorectal Cancer Screening 1958 Dental Oral Exam 1958 Dental Prophylaxis 1958 Dental X-Ray: Bitewings 1958 Dental X-Ray: Full Mouth 1958 FIT DNA/Cologuard 1958 FIT 1958 FOBT 1958 Sigmoidoscopy 1958 Eye Exam 1968 Alcohol/Substance Use Screening 1970 Diabetes: Urine Protein Screening 1977 Hepatitis A Vaccines (1 of 2 - Risk 2-dose series) 1977 Pneumococcal Vaccine: 50+ Years (1 of 2 - PCV) 1977 Zoster Vaccines (1 of 2) 2008 RSV Patients and Patients Aged 60 years or older (1 - Risk 60-74 years 1-dose series) 2018 Depression Screening 04/03/2024 04/03/2023, 03/09/20 23 COVID-19 Vaccine ( season) 2024 Influenza Vaccine (#1) 2024 08/01/2021 Diabetes: Foot Exam 06/02/2024 06/02/2023, 06/02/2023, 06/02/2023, Additional history exists Lipid Panel 07/07/2024 07/07/2023 Diabetes: Hemoglobin A1C 10/26/2024 04/28/2024, 06/17 Tobacco Screening 07/31/2025 07/31/2024 SDOH Screening 09/07/2025 09/07/2024 DTaP/Tdap/Td Vaccines (2 - Td or Tdap) 12/09/2026 12/09/2016 Hepatitis C Screening Completed 07/07/2023 HIB Vaccines Aged Out No longer eligi ble based on patient's age to complete this topic HPV Vaccines Aged Out No longer eligi ble based on patient's age to complete this topic Hepatitis B Vaccines Aged Out No long er eligible based on patient's age to complete this topic IPV Vaccines Aged Out No longer eligi ble based on patient's age to complete this topic Meningococcal Vaccine Aged Out No rubina sterling eligible based on patient's age to complete this topic RSV under 20 months Aged Out No longe r eligible based on patient's age to complete this topic Rotavirus Vaccines Aged Out No longer eligible based on patient's age to complete this topic Procedures Procedure Name Priority Date/Time Associated Diagnosis Comments SARS COV2/INFLUENZA A/B AND RSV RNA QL NAAT Routine 07/25/2024 3:22 PM EST POCT GLYCATED HEMOGLOBIN, TOTAL Routine 04/28/2024 12:26 PM EDT Type 2 diabetes mellitus with hyperglycemia, with long-term current use of insulin ([facility]) HEPATITIS C AB W/REFL TO HCV RNA, QN, PCR Routine 07/07/2023 12:30 PM EST Opioid use disorder LIPID PANEL, STANDARD Routine 07/07/2023 12:30 PM EST Opioid use disorder from Last 3 Months or Most Recently Relevant to Health Maintenance Results * SARS-CoV-2 RNA, Influenza A/B, and RSV RNA, Ql NAAT (07/25/2024 3:22 PM EST) Influenza A PCR NEGATIVE Negative [facility] Influenza B PCR NEGATIVE Negative [facility] Resp Syncy Virus RNA Qual PCR NEGATIVE Negative [facility] SARS COV2 PCR NEGATIVE Negative [facility] Comment:All test results mus t be correlated with clinical findings.Negative results do not preclude SARS-CoV2, influenza Avirus, influenza B virus and/or RSV infectionand should not be used as the sole basis for treatment orother patient management decisions. Negative results must becombined with clinical observations, patient history, andepidemiological information.This test has not been evaluated for monitoring treatment ofinfection.This test has been authorized by the FDA under an EmergencyUse Authorization (EUA) for use by authorized laboratories.Testing performed on the [employer] GeneXpert utilizingreal-time RT-PCR.All SARS CoV2 and positive influenza A/B results arereported to [facility]. 07/25/2024 3:22 PM EST 07/25/2024 3:28 PM EST Generic External Data Provider LAB MICROBIOLOGY - GENERAL ORDERABLES Final Result Performing Organization Address [facility]/ZIP Co de Phone Number [facility] [address] [place] [phone] * POCT HGB A1C (04/28/2024 12:26 PM EDT) Hemoglobin A1C 5.8 4.0 - 6.0 % QC Media Lot # [id number] Lot# Expiration Date [id number] Blood 04/28/2024 12:2 6 PM EDT Result [facility] Karlene Chamorro MD POINT OF CARE TEST ENTER /EDIT ORDERABLES Final Result * Hepatitis C Antibody with Reflex to HCV, RNA, Quantitative, Real-Time PCR (07/07/2023 12:30 PM EST) Hepatitis C Antibody Nonreactive Nonreactive [facility] Comment:Antibodies to HCV no t detected; does not exclude early acuteHCV infection. 07/07/2023 12:3 0 PM EST 07/07/2023 1:13 PM EST Karlene Chamorro MD LAB BLOOD ORDERABLES Fin al Result Performing Organization Address [facility]/ZIP Co de Phone Number [facility] [address] [place] [phone] * (ABNORMAL) Lipid Panel, Standard (07/07/2023 12:30 PM EST) Triglycerides 49 <150 mg/dL [facility] Comment:Desirable Triglyceri de: less than 150 mg/dLBorderline High Triglyceride 150-199 mg/dLHigh Triglyceride: 200-499 mg/dLVery High Triglyceride: greater than or equal to 5OO mg/dL Cholesterol 160 <200 mg/dL [facility] Comment:Desirable Cholestero l: less than 200 mg/dLBorderline High Cholesterol: 200-239 mg/dLHigh Cholesterol: greater than 239 mg/dL LDL Cholesterol Calculated 101(H) <100 mg/dL [facility] Comment:Desirable LDL: less than 100 mg/dLNear Optimal/Above Optimal LDL: 110- 129 mg/dLBorderline High LDL: 130-159 mg/dLHigh LDL: 160-189 mg/dLVery High LDL: greater than or equal to 190 mg/dL HDL Cholesterol 50 >40 mg/dL [facility] Comment:Desirable HDL: great er than 40 mg/dL Note: This HDL assay may give artificially low results in patients with liver disease. 07/07/2023 12:3 0 PM EST 07/07/2023 1:13 PM EST Karlene Chamorro MD LAB BLOOD ORDERABLES Fin al Result [facility] [address] [place] [phone] from Last 3 Months or Most Recently Relevant to Health Maintenance Insurance [facility] Care Teams Movie Editor Relationship Specialty Start Date End Date Karlene Chamorro MD [address] [place] [phone] PCP - General Internal Medicine 04/03/23
--- OUTSIDE RECORDS SUMMARY | 2024-10-03 09:09 | XMS_ITS | Encounter Summary ---
Author Organization [employer] Address [address] [facility] 7t [place] [address] Care Team Providers Care Audience Development Manager Name Role Phone Karlene Roldan MD Primary Care Provider + Reason for Visit * Reason Comments Pre-visit Planning SDOH screening negat alexandru and tobacco screening positive Encounter Details Date Type Department Care Team ([facility] Contact Info) Description 09/07/2024 Patient Outreach [facility] [address] [place] [address] Karlene Roldan MD [address] [place] [address] Pre-visit Planning (SDOH screening negative and tobacco screening positive) Social History Tobacco Use Types Packs/Day Years [...] your housing situation today? I have christiane lj 09/07/[address] you li [...] AM EDT documented as of this encounter Progress Notes * Arabella Cohen - 09/07/2024 10:15 AM EST CC Arabella placed successful outbound call to patient for pre-visit planning. Patient name and confirmed. Patient confirms appt date and time, and has transportation. Biggest concern for appointment at this time is will discuss with provider Patient advised to bring to appointment a photo id andinsurance card. Appropriate screenings completed in anticipation of appointment. documented in this encounter Plan of Treatment Not on file documented as of this encounter Visit Diagnoses Not on filedocumented in this encounter Additional Health Concerns Assessment Noted Time PHQ-9 Depression Total Score: 6 03/09/20 11:28 AM EDT documented as of this encounter Care Teams Audience Development Manager Relationship Specialty Start Date End Date Karlene Roldan MD [address] [place] [id number] PCP - General Internal Medicine 04/03/23 documented as of this encounter
--- OUTSIDE RECORDS SUMMARY | 2024-10-03 09:09 | XMS_ITS | Clinical Summary ---
Author Organization [facility] Address [address] [place] [address] Care Team Providers Care Stock Preparation Operator Name Role Phone Lala Mao Primary Care Provider Allergies No known active allergies Medications Medication Sig Dispensed Refills Start Date End Date Status amLODIPine (NORVASC) tablet 10 mg Take 10 mg by mouth daily. 11 10/24/2018 Active LYRICA 75 MG capsule TAKE ONE CAPSULE BY MOUTH TWICE A DAY FOR 1 TO 2 WEEKS, THEN INCREASE TO 2 CAPSULES TWICE DAILY 5 10/19/2018 Active naproxen (NAPROSYN) 500 MG tablet TAKE 1 TAB BY MOUTH 2 TIMES DAILY NEEDED FOR PAIN 2 10/18/2018 Active ibuprofen (ADVIL,MOTRIN) 600 MG tablet Take 600 mg by mouth every 6 (six) hours as needed for pain. 0 Active Active Problems Problem Noted Date Diagnosed Date Arthritis of left hip 11/17/2018 Social History Tobacco Use Types Packs/Day Years Used Date Smoking Tobacco: Former Cigarettes Q uit: 2019 Smokeless Tobacco: Never Alcohol Use Standard Drinks/Week Comments No 0 (1 standard drink = 0.6 oz pur e alcohol) Sex and Gender Information Value Date Recorded Sex Assigned at Not on file Gender Identity Not on file Sexual Orientation Not on file Job Start Date Occupation Industry Not on file Not on file Not on file Last Filed Vital Signs Vital Sign Reading Time Taken Comments Blood Pressure - - Pulse - - Temperature - - Respiratory Rate - - Oxygen Saturation - - Inhaled Oxygen Concentration - - Weight 99.8 kg (220 lb) 11/17/2018 2:27 PM EDT Height 177.8 cm (5' 10 ) 11/17/2018 2:27 PM EDT Body Mass Index 31.57 11/17/2018 2:27 PM EDT Plan of Treatment Health Maintenance Due Date Last Done Comments Hepatitis C Screening 1960 COVID-19 Vaccine (#1) 04/16/1959 Depression Screening 1970 Preventative Health Evaluation 1976 Colon Cancer Screening (Colonoscopy) 10/15/2003 Shingrix-Zoster Vaccine (1 of 2) 2008 Fall Risk Assessment 10/15/2023 Pneumococcal Vaccine (1 of 1 - PCV) 10/15/2023 Influenza Vaccine (#1) 2024 DTap / Tdap / Td (2 - Td or Tdap) 12/09/2026 017 RSV Adult > 60+ Yrs or Pregn ant (1 - 1-dose 75+ series) 2033 Hepatitis B Vaccines Aged Out No long er eligible based on patient's age to complete this topic Pneumococcal Vaccine Aged Out No long er eligible based on patient's age to complete this topic RSV Ped < 20 months Aged Out No longe r eligible based on patient's age to complete this topic Care Teams Stock Preparation Operator Relationship Specialty Start Date End Date [facility]Lala [facility] DaleyMansonMADELAINE [id number] PCP - General Internal Medicine 11/04/18
--- OUTSIDE RECORDS SUMMARY | 2024-10-03 09:09 | XMS_ITS | Encounter Summary ---
Author Organization [employer] Address [address] [facility] [address] 7[address] [place] [address] Care Team Providers Care Senior Water/Wastewater Engineer Name Role Phone Karlene Roldan MD Primary Care Provider + Reason for Visit * Reason Onset Date Comments Med Refill 09/07/2024 Encounter Details Date Type Department Care Team (Late st Contact Info) Description 09/07/2024 Refill [facility] [address] [place], [place] [phone] Karlene Roldan MD [address] [place] [address] Dyspepsia Social History Tobacco Use Types Packs/Day Years [...] your housing situation today? I have christiane sing 09/07/[address] you li [...] as of this encounter Visit Diagnoses Diagnosis Dyspepsia Dyspepsia and other specified disorders of function of stomach documented in this encounter Additional Health Concerns Assessment Noted Time PHQ-9 Depression Total Score: 6 03/09/20 11:28 AM EDT documented as of this encounter Care Teams Senior Water/Wastewater Engineer Relationship Specialty Start Date End Date Karlene Roldan MD [address] [place] [phone] PCP - General Internal Medicine 04/03/23 documented as of this encounter
--- OUTSIDE RECORDS SUMMARY | 2024-10-03 09:10 | XMS_ITS | Encounter Summary ---
Author Organization [employer] Address [address] [facility] 7t [place] [address] Care Team Providers Care Cork Tipper Name Role Phone Karlene Roldan MD Primary Care Provider + Reason for Visit * Reason Onset Date Comments Chart prep 09/19/2024 Encounter Details Date Type Department Care Team ([facility] st Contact Info) Description 09/19/2024 Telephone [facility] MEDICINE [address] [place], [place] [phone] Karlene Roldan MD [address] [place] [address] Chart prep Social History Tobacco Use Types Packs/Day Years [...] housing situation today? I have christiane calhoun 09/07/[address] you [...] encounter Miscellaneous Notes * Telephone Encounter - Berkley Kang [place] - 09/19/2024 2:25 PM EST Chart Prep Labs: not done Images: done Vaccines due: yes Referrals: pending appt Screenings: Foot Exam Overdue care gaps: Glucose, PHQ-9 documented in this encounter Plan of Treatment Not on file documented as of this encounter Visit Diagnoses Not on filedocumented in this encounter Additional Health Concerns Assessment Noted Time PHQ-9 Depression Total Score: 6 03/09/20 11:28 AM EDT documented as of this encounter Care Teams Cork Tipper Relationship Specialty Start Date End Date Karlene Roldan MD [address] [place] [id number] PCP - General Internal Medicine 04/03/23 documented as of this encounter
--- OUTSIDE RECORDS SUMMARY | 2024-10-03 09:10 | XMS_ITS | Encounter Summary ---
Author Organization [employer] Address [address] [facility] [address] 7[address] [place] [address] Care Team Providers Care Field Court Researcher Name Role Phone Karlene Roldan MD Primary Care Provider + Encounter Details Date Type Department Care Team ([facility] st Contact Info) Description 09/20/2024 Telephone [facility] MEDICINE [address] [place], [place] [phone] Karlene Roldan MD [address] [place], [place] [phone] Social History Tobacco Use Types Packs/Day Years [...] encounter Miscellaneous Notes * Telephone Encounter - Belgica Negron - 09/20/2024 3:35 PM EST Pt no showed to appt on 09/20/24 documented in this encounter Plan of Treatment Not on file documented as of this encounter Visit Diagnoses Not on filedocumented in this encounter Additional Health Concerns Assessment Noted Time PHQ-9 Depression Total Score: 6 03/09/20 11:28 AM EDT documented as of this encounter Care Teams Field Court Researcher Relationship Specialty Start Date End Date Karlene Roldan MD [address] [place] [phone] PCP - General Internal Medicine 04/03/23 documented as of this encounter
--- OUTSIDE RECORDS SUMMARY | 2024-10-03 09:10 | XMS_ITS | Encounter Summary ---
Author Organization [facility] Address [address] [place] [address] Care Team Providers Care Pre Coder Name Role Phone Karlene Roldan MD Primary Care Provider Reason for Visit * Reason Comments Follow-up Encounter Details Date Type Department Care Team (Late st Contact Info) Description 09/07/2024 10:50 AM EST Office Visit [facility] [address] [place] [phone] Laney Mckeon MD [address] [place] [address] [address] [place] [address] Coronary artery disease involving assiniboine and sioux coronary artery of assiniboine and sioux heart without angina pectoris (Primary Dx); Mixed hyperlipidemia; Primary hypertension Social History Tobacco Use Types Packs/Day Years [...] on file documented as of this encounter Last Filed Vital Signs Vital Sign Reading Time Taken Comments Blood Pressure 110/70 09/07/2024 10:43 AM EST Pulse 75 09/07/2024 10:43 AM EST Temperature - - Respiratory Rate - - Oxygen Saturation 98% 09/07/2024 10:43 AM EST Inhaled Oxygen Concentration - - Weight 87.1 kg (192 lb) 09/07/2024 10:43 AM EST Height 177.8 cm (5' 10 ) 09/07/2024 10:43 AM EST Body Mass Index 27.55 09/07/2024 10:43 AM EST documented in this encounter Ordered Prescriptions Prescription Sig Dispense Quantity Refills Last Filled Start Date End Date atorvastatin (LIPITOR) 20 mg tablet Take 1 tablet (20 mg total) by mouth 1 (one) time each day. 30 each 09/07/2024 09/07/2025 documented in this encounter Progress Notes * Laney Mckeon MD - 09/07/2024 10:50 AM EST Images from the original note were not included. [facility] PCP: Karlene Roldan MD HPI: Delvin Michelle is a 63 y.o. old male with hypertension, chronic lumbar radiculopathy status post laminectomy surgery in 2015, he proctoplasty, tobacco use disorder who presented to [facility] in July 2021 with inferior STEMI status post PCI who now came to the follow-up visit. The angiogram showed normal LMCA, 35% lesion in the similar LAD, mild luminal irregularities of theLCx large thrombotic occlusion of the mid RCA with 99% stenosis who underwent multiple rounds of thrombectomy and eventually stented with 4.0 mm X 18 mm resolute Dillon stent postdilated to 4.5 mm. Patient was started on aspirin and Brilinta post intervention. Echocardiogram on 08/27/2020 showed ejection fraction of 60 to 65% with basal anterolateral and inferior hypokinesis, normal valvular function. Right ventricle is not well visualized. No anginal symptoms or any other issues. He is currently taking aspirin 81 mg. He was on metoprololin the past but for last 3 months, he is not on them. I see his blood pressure is on the lower sideand he is not amlodipine 10 mg as well as losartan 25 mg. Hence we decided not to start him on metoprolol which may cause further hypotension. He is also not on any atorvastatin and we discussed today. We started him on atorvastatin 20 mg. He is going for a vein ablation procedure tomorrow at [facility]. Then he will go to group insurance special agent for bunion surgery. I advised him to continue aspirin during this all procedures considering his cardiac stent. He understands. Will see him again in 1 month. ACTIVE MEDICATIONS: Outpatient Medications Marked as Taking for the 09/07/24 encounter (Office Visit) with Laney Mckeon MD Medication Sig Dispense Refill acetaminophen (TYLENOL ORAL) Take by mouth. amLODIPine (NORVASC) 10 mg tablet Daily ascorbic acid (VITAMIN C) 500 mg tablet Take 500 mg by mouth daily. aspirin 81 mg EC tablet Take 1 tablet (81 mg total) by mouth 1 (one) time each day. 90 each 0 bisacodyL (DULCOLAX) 5 mg EC tablet Take by mouth. Take 2 tabs by mouth right before beginning bowel prep dupilumab (Dupixent Pen) 300 mg/2 mL pen Inject 2 mL into the skin every 14 days. famotidine (PEPCID) 20 mg tablet Take by mouth. freestyle (Push Button Safety Lancets) 28 gauge lancets 1 Device by Does not apply route 2 times daily. inhalational spacing device inhaler 1 Piece by Does not apply route every 6 hours as needed for Other (To use with albuterol). losartan (COZAAR) 25 mg tablet Take 1 Tablet by mouth daily. [DISCONTINUED] metoprolol succinate (TOPROL-XL) 25 mg 24 hr tablet TAKE 12.5MG BY MOUTH 2 TIMES DAILY. PAST MEDICAL HISTORY: Patient Active Problem List Diagnosis Abdominal pain, chronic, left lower quadrant Aortic atherosclerosis (CMS/HCC) Arthritis of left hip Eczema Herniated lumbar intervertebral disc Hyperlipidemia Coronary artery disease involving assiniboine and sioux coronary artery of assiniboine and sioux heart without angina pectoris Hypertrophic cardiomyopathy (CMS/HCC) Left carpal tunnel syndrome Neuropathic pruritus Nonsustained ventricular tachycardia (CMS/HCC) Obstructive sleep apnea Osteoarthritis Paroxysmal atrial fibrillation (CMS/HCC) Pneumonia due to COVID-19 virus Post herpetic neuralgia Primary hypertension Sciatica STEMI involving right coronary artery (CMS/HCC) Tubular adenoma Type 2 diabetes mellitus without complication, without long-term current use of insulin (CMS/HCC) Arthritis of left ankle Metatarsalgia of left foot Hammer toe of left foot Contracture of joint of left foot Verruca plantaris ALLERGIES: Allergies Allergen Reactions Ibuprofen Swelling Metformin Diarrhea FAMILY HISTORY: Family History Problem Relation Name Age of Onset Diabetes Father Hypertension Other cancer Maternal Grandfather type unknown Prostate cancer Uncle x 2 Diabetes Paternal Grandfather Prostate Cancer Diabetes Father's side Hypertension, Aunts x 2 SOCIAL HISTORY: Social History Tobacco Use Smoking status: Former Current packs/day: 0.00 Average packs/day: 0.5 packs/day for 27.4 years (13.7 ttl pk-yrs) Types: Cigarettes Start date: 1988 Quit date: 03/16/2016 Years since quittin.4 Smokeless tobacco: Never Substance Use Topics Alcohol use: No REVIEW OF SYSTEM: Constitutional: No appetite Loss, chills, dizziness, fever, night Sweats Eyes: Denies blurred vision, discharge, eye irritation, spots in vision, vision loss Head and Neck: Denies any headache, neck pain Ears, Nose, Mouth, Throat: No issues Cardiovascular: Denies chest pain/pressure, claudication, irregular heart beat, orthopnea, palpitations, syncope Respiratory: Denies cough, hemoptysis, SOB, sputum production, wheezing Gastrointestinal: Denies any abdominal distention, pain, black stools, diarrhea, dysphagia, vomiting Genitourinary: Denies dysuria, flank pain Musculoskeletal: Denies any joint pain or swelling other than mention in HPI Integumentary: Denie any skin rash or ulcer, pruritus Neurological: Denies any abnormal gait or focal weakness, headache, numbness, seizures, slurred speech Psychiatric: Denies any delusions, emotional problems, homicidalideation, suicidal ideation Hematologic: Denies any bleeding tendency, hemorrhage PHYSICAL EXAM: Vitals: 09/07/24 1043 BP: 110/70 BP Location: Left arm Patient Position: Sitting BP Cuff Size: Adult Pulse: 75 SpO2: 98% Weight: 87.1 kg (192 lb) Height: 1.778 m (70 ) Appearance: No Acute Distress, Alert Head Exam: Normocephalic and Atraumatic Eyes: Mild Palor, Sclera Anicteric, PERRL, EOMI Neck: Supple, Non-tender, No carotid bruit, thyromegaly or lymphadenopathy Pulmonary: No Accessory Muscle Use, clear to auscultate bilaterally Cardiovascular: JVD/Rhythm/Heart Sound/Added sound-S1 and S2 regular rate and rhythm, no murmur, nogallop or rub Abdominal Inspection: Normal, Soft, Non-tender, Bowel Sounds Present, No Hepatosplenomegaly Rectal Exam: Deferred Extremity: Peripheral Pulses are palpable and symmetrical, no leg edema Musculoskeletal: No obvious joint pain, swelling or deformity Skin: Skin Color Normal, No rash or visible ulcer on limited examination Hematological: No lymphadenopathy or mass Psychiatry: anxiety +, no delusion EKG: Encounter Date: 09/07/24 ECG 12 lead Result Value Ventricular Rate ECG 75 Atrial Rate 75 P-R Interval 138 QRS Duration 128 Q-T Interval 440 QTc 491 P Wave Franklin 41 R Franklin -50 T Franklin 81 ECG Interpretation Sinus rhythm with Premature atrial complexes and Premature ventricular complexes or Fusion complexes Left axis deviation Right bundle branch block Abnormal ECG When compared with ECG of 23-NOV-2017 14:16, Fusion complexes are now Present Premature ventricular complexes are now Present Right bundle branch block is now Present *Note: Due to a large number of results and/or encounters for the requested time period, some results have not been displayed. A complete set of results can be found in Results Review. TESTING: No results found for: CBCDIF , BMP , PCTLIPID , TSH , BNP PROBLEM LIST: Coronary artery disease involving assiniboine and sioux coronary artery of assiniboine and sioux heart without angina pectoris Mixed hyperlipidemia Primary hypertension ASSESSMENT/PLAN: Coronary artery disease; inferior STEMI status post ALOK in the RCA: He is only on aspirin 81 mg p.o. daily. Started him back on atorvastatin 20 mg with a plan to switch up to 40 mg on next visit. Continue amlodipine for now. Due to hypotension, do not want to start him back on metoprolol. Hypertension: Blood pressure today is 100/72 mmHg. Currently on amlodipine and losartan. We will continue. Hyperlipidemia: Was not on any medication. Discontinued atorvastatin, not sure exactly why but there was no adversereaction. Decided to start him back on atorvastatin 20 mg with a plan to uptitrate to 40 mg on nextvisit. I spent 35 minutes for this encounter with the patient, including >50% time spent with direct patient contact for history taking, review of system, physical examination, discussion of the lab and test result and management plan as well as in chart review,indipendent review of imaging along with my own interpretation, documentation and communicating with reffering physician. The [facility] team will continue to co-manage this patient following the plan of care as established by my initial visit and as per AHA guidelines for ongoing management and surveillance of Coronary ArteryDisease, Hyperlipidemia, and Hypertension This will include medication titration, initiation of appropriate medications and further titration, and diagnostic studies to manage this disease process. documented in this encounter Plan of Treatment Upcoming Encounters Date Type Department Care Team (Late st Contact Info) Description 11/08/2024 9:45 AM EDT Office Visit [facility] [place] [address] [facility] [facility] [address] [place] [phone] Sergio Barry, DPM [address] [facility] [place] [phone] documented as of this encounter Procedures Procedure Name Priority Date/Time Associated Diagnosis Comments ECG 12-LEAD Routine 09/07/2024 10:51 AM EST Coronary artery disease involving assiniboine and sioux coronary artery of assiniboine and sioux heart without angina pectoris documented in this encounter Results * ECG 12 lead (09/07/2024 10:51 AM EST) Ventricular Rate ECG 75 BPM GEMUSE Atrial Rate 75 BPM GEMUSE P-R Interval 138 ms GEMUSE QRS Duration 128 ms GEMUSE Q-T Interval 440 ms GEMUSE QTc 491 ms GEMUSE P Wave Franklin 41 degrees GEMUSE R Franklin -50 degrees GEMUSE T Franklin 81 degrees GEMUSE ECG Interpretation Sinus rhythm with Premature atrial complexes and Premature ventricular complexes or Fusion complexes Left axis deviation Right bundle branch block Abnormal ECG When compared with ECG of 23-NOV-2017 14:16, Fusion complexes are now Present Premature ventricular complexes are now Present Right bundle branch block is now Present Confirmed by LANEY MCKEON ([id number]) on 09/07/2024 11:21:59 AM GEMUSE 09/07/2024 10:5 1 AM EST 09/07/2024 11:21 AM EST Laney Mckeon MD ECG ORDERABLES Final Result GEMUSE documented in this encounter Visit Diagnoses Diagnosis Coronary artery disease involving assiniboine and sioux coronary artery of assiniboine and sioux heart without angina pectoris- Primary Mixed hyperlipidemia Primary hypertension Unspecified essential hypertension documented in this encounter Discontinued Medications Medication Sig Discontinue Reason Start Date End Da te metoprolol succinate (TOPROL-XL) 25 mg 24 hr tablet TAKE 12.5MG BY MOUTH 2 TIMES DAILY. 04/27/2023 09/07/2024 documented as of this encounter Historical Medications * This list may reflect changes made after this encounter. famotidine (PEPCID) 20 mg tablet Take by mouth. added in this encounter Care Teams Pre Coder Relationship Specialty Start Date End Date Karlene Roldan MD [address] [place] [phone] PCP - General 05/07/23 documented as of this encounter
--- OUTSIDE RECORDS SUMMARY | 2024-10-03 09:10 | XMS_ITS | Encounter Summary ---
Author Organization [facility] Address [address] [place] [address] Care Team Providers Care Chicken Picker Name Role Phone Karlene Roldan MD Primary Care Provider [phone] Reason for Visit * Reason Comments Follow-up Hammer toe of left f ootDermatophytosis of nailPain in toe of right footPain in toe of left footDiabetic mononeuropathy simplex (CMS/HCC)Acquired hallux valgus of right footAcquired hallux valgus of left footMetatarsalgia of both feetVerruca plantaris Encounter Details Date Type Department Care Team (Late st Contact Info) Description 09/05/2024 8:30 AM EST Office Visit Orthopedic Surgery - [place] [address] [phone] Sergio Barry, DPM [address] [address] Arthritis of left ankle (Primary Dx); Follow-up exam; Metatarsalgia of left foot; Hammer toe of left foot; Contracture of joint of left foot; Verruca plantaris Social History Tobacco Use Types Packs/Day Years [...] - Inhaled Oxygen Concentration - - Weight 86.2 kg (190 lb) 09/05/2024 8:15 AM EST Height 177.8 cm (5' 10 ) 09/05/2024 8:15 AM EST Body Mass Index 27.26 09/05/2024 8:15 AM EST documented in this encounter Progress Notes * Sergio Barry DPM - 09/05/2024 8:30 AM EST Last MD visit on 07/31/24 Dr Maria Del Rosario Haddad MD S Patient possible to be placed to his skin formation of the balls both his feet is chronically painful sharp and achy states he is wonder if it is warts she notes he was seen by outside drama therapist andstates that difficulty treating him notes he has very thickened fungal nails he is diabetic and endorses numbness burning tingling to both feet patient also notes he has severe contractural deformities of both feet he notes he has worsening midfoot pain of his left foot he states seeing throbbing achy pain x-rays were taken today physic his left midfoot specifically is become more painful 7-10 out of 10 pain discomfort has severe contractures of his lesser digits close pain in the balls of his foot he would like to pursue surgical options does not the skin continues to come back he has not been using the salicylic acid as prescribed ROS: GENERAL: Pt denies nausea, fever, vomiting, chills, or shortness of breath. Pt in NAD. CARDIOLOGY: pt denies chest pain, palpitations LUNGS: pt denies shortness of breath MUSCULOSKELETAL: See HPI, otherwise no joint pain or swelling, back pain, or muscle pain. SKIN: see HPI, otherwise no lesions, rash or itching NEURO: No persistent headache, weakness or numbness The remainder of the review of systems is noncontributory PAST MEDICAL HISTORY: Patient Active Problem List Diagnosis Code HTN (hypertension) I10 Herniated lumbar intervertebral disc M51.26 Sciatica M54.30 Post herpetic neuralgia B02.29 Neuropathic pruritus F45.8 Tubular adenoma D36.9 Left carpal tunnel syndrome G56.02 Abdominal pain, chronic, left lower quadrant R10.32, G89.29 Osteoarthritis M19.90 Aortic atherosclerosis (HCC) I70.0 STEMI involving right coronary artery (HCC) I21.11 Pneumonia due to COVID-19 virus U07.1, J12.82 Paroxysmal atrial fibrillation (HCC) I48.0 Type 2 diabetes mellitus without complication, without long-term current use of insulin (HCC) E11.9 Hypertrophic cardiomyopathy (HCC) I42.2 Obstructive sleep apnea moderate AHI 26 with nocturnal hypoxemia G47.33 Coronary artery disease involving hopi coronary artery of hopi heart without angina pectoris I25.10 Primary hypertension I10 Nonsustained ventricular tachycardia (HCC) I47.29 Eczema L30.9 Hyperlipidemia E78.5 SOCIAL HISTORY: Social History Tobacco Use Smoking status: Former Packs/day: 0.50 Years: 20.00 Pack years: 10.00 Types: Cigarettes Start date: 1988 Quit date: 03/16/2016 Years since quittin.1 Smokeless tobacco: Never Tobacco comments: quit in 2014 Substance Use Topics Alcohol use: No History Last Reviewed by Analilia Delgado on 05/07/2023 at 10:53 AM Sections Reviewed Tobacco, Alcohol, Drug Use ACTIVE MEDICATIONS: Current Outpatient Medications Medication Sig Dispense Refill terbinafine (LAMISIL) 250 MG tablet Take 1 Tablet by mouth daily for 90 days. 30 Tablet 2 amlodipine (NORVASC) 10 MG tablet Take 1 Tablet by mouth daily. 90 Tablet 0 losartan (COZAAR) 25 MG tablet Take 1 Tablet by mouth daily. 90 Tablet 0 Dulaglutide (Trulicity) 1.5 MG/0.5ML Solution Pen-injector Inject 1.5 mg into the skin every 7 days. 2 mL 11 bisacodyl (Dulcolax) 5 MG EC tablet Take 2 tabs by mouth right before beginning bowel prep. Follow instructions given by office for timing. 2 Tablet 0 polyethylene glycol (GoLYTELY,NuLYTELY) 236 g suspension Take 240 mL by mouth once for 1 dose. Take4L by mouth once for one dose. May substitue any PEG. Starting at 6PM the night before your procedure drink 1 8oz glasses at your own pace until rectals run clear. 4000 mL 0 aspirin (Aspirin 81) 81 MG chewable tablet Take 1 Tablet by mouth daily for 360 days. 30 Tablet 11 Glucose Blood (FREESTYLE LITE) Strip USE TO CHECK BLOOD SUGARS 2-3 TIMES A DAY 100 Strip 5 metoprolol (TOPROL-XL) 25 MG 24 hr tablet TAKE 12.5MG BY MOUTH 2 TIMES DAILY. 90 Tablet 2 Push Button Safety Lancets 28G Misc 1 Device by Does not apply route 2 times daily. 100 Each 5 Respiratory Therapy Supplies (BreatheRite Valved MDI Chamber) Device 1 Piece by Does not apply route every 6 hours as needed for Other (To use with albuterol). 1 Each 0 glucose monitoring kit (FREESTYLE) monitoring kit 1 Kit by Does not apply route 2 times daily for 360 days. 1 Kit 0 Dupilumab (Dupixent) 300 MG/2ML Solution Pen-injector Inject 2 mL into the skin every 14 days. 2 mL11 Acetaminophen (TYLENOL OR) Take by mouth. Ascorbic Acid (VITAMIN C) 500 MG tablet Take 500 mg by mouth daily. No current facility-administered medications for this visit. ALLERGIES: Ibuprofen and Metformin PHYSICAL EXAM: Height 5' 10.5 (1.791 m), weight 190 lb (86.2 kg). Estimated body mass index is 26.88 kg/m?? as calculated from the following: Height as of this encounter: 5' 10.5 (1.791 m). Weight as of this encounter: 190 lb (86.2 kg). PODIATRIC EXAMINATION: GENERAL: Patient appears well nourished, with NAD. VASCULAR: Dorsalis pedis pulses are 2/4 bilaterally and Posterior tibial pulses are 2/4 bilaterally. Capillary filling time within normal limits the digits. No pallor on elevation or rubor on dependency. Positive hair growth. No varicosities. Denies rest pain or claudication pain. NEUROLOGICAL: Sharp/dull sensation diminished, protective sensation 7/10 with 5.07 semmes weinsteinbilaterally, vibratory sensation with tuning fork intact to the tibial tuberosity. ORTHOPEDIC: Good muscle strength 5/5 of all flexors and extensors. Dorsi flexion of ankle ,10 degrees, plantar flexion WNL. No muscle atrophy. DERMATOLOGICAL:.Abnormal skin formation ball of both feet right 3 lesions left 2 lesions with loss of skin lines deep central core pain with lateral compression pinpoint bleeding Toenails: Left Toenail(s) 1-5: Crumbling upon debridement, subungual debris, discoloration, dystrophy, elongation, mycotic appearance, onychomycosis, pain and thickening. Right Toenail(s) 1-5: Crumbling upon debridement, subungual debris, discoloration, dystrophy, elongation, mycotic appearance, onychomycosis, pain and thickening. BIOMECHANICS: STJ ROM wnl, MTJ ROM mild advanced crepitation left metatarsal cuneiform joint, 1st MPJ ROM track bound bilateral bunion deformities with hammertoe contractures 2 through 5 rigid. Metatarsophalangeal and lesser digits dorsal contractures IMAGING: IMPRESSION: 1. Arthritis of left ankle 2. Follow-up exam XR Foot 3+ Views bilat 3. Metatarsalgia of left foot 4. Hammer toe of left foot 5. Contracture of joint of left foot 6. Verruca plantaris PLAN: Pt was seen and examined, history reviewed. Radiographs reviewed surgery was discussed in detail with patient Alexia patient is finished course without significant proven his nails Discussed with patient regarding proper glucose control, exercise, and diet. Explained to patient proper shoe gear, and importance of daily foot checks. I reviewed neuropathy and why it occurs in diabetics. I educated the patient on proper blood sugar control and the importance of an HgBA1c of less than 7.0%. [id number]: Destruction of Plantar Verrucae: Verbal informed consent was obtained from the patient. Debrided wart(s) with a scalpel. Aggressive debridement dermal curette and 15 scalpel blade followed by chemical destruction and cauterization with silver nitrate sticks. Planned procedure(s): Left first metatarsocuneiform joint fusion left foot hammertoe correction 2 through 5 partial metatarsal head resection left third metatarsal phalange and contracture releases of the second fourth fifth left foot with biopsy Surgical Planning visit: During today???s visit we discussed at great length the etiology, prognosis, and treatment options for the patient???s condition. Risks and benefits of operative and non operative treatment options were discussed. Treatment options for Left first metatarsocuneiform joint fusion left foot hammertoe correction 2 through 5 partial metatarsal head resection left third metatarsal phalange and contracture releases of the second fourth fifth left foot with biopsy correction were discussed, non-operative treatment would involve tapping, strapping, adjustments in shoe gear, orthotics insoles, rest, bracing and edema control. There is potential for the deformities to stabilize without surgery yet there may still be a need for delayed surgery and distructive procedures. There is potential for non-union with surgery and non- operative care would avoid incision problems and anesthesia risks. Surgery has added risks including but not limited to infection, incision pain, neuritis or numbness reoccurance of deformity, scar tissue contracture, worsening of deformity and loss of limb or life. Left first metatarsocuneiform joint fusion left foot hammertoe correction 2 through 5 partial metatarsal head resection lef t third metatarsal phalange and contracture releases of the second fourth fifth left foot with biopsy healing was discussed in relation to operative treatment. Recovery and post operative immobilization was discussed based on the various treatment options. A decision was made to pursue Left first metatarsocuneiform joint fusion left foot hammertoe correction 2 through 5 partial metatarsal head resection left third metatarsal phalange and contracture releases of the second fourth fifth left foot with biopsy surgery. Patient voices understanding of therisks and benefits and would like to proceed with surgery. Weight bearing status: NWB x 2 weeks followed by progressive WB x 10 weeks in a below the knee boot. Work&Activity restrictions: Impact of undergoing surgery to work and daily activity was discussed today Pain management: Postoperative pain regiment were discussed in great detail with the patient. The patient was also encouraged to aggressively elevate and ice postoperatively to help with swelling andpain control. The patient was in agreement with this plan. The patient will be prescribed IbuprofenTylenol Oxycodone for postoperative pain management. VTE Risk assessment: Risk of DVT/ PE were discussed in relation to immobilization, inactivity, injury, surgery, medication and personal risk factors. Signs and symptoms of a blood clot were discussedincluding action plan if the patient experiences these signs or symptoms. Methods of prevention and risk reduction were explained. Mechanical prophylaxis including ROM and mobilization is encouraged as much as possible. The patient???s risk for deep vein thrombosis was also assessed today. In regards to major risk factors they: Do not have personal history of DVT Do not have known active cancer Do not have known clotting disorder Do not have family history of DVT Pending foot surgery and current level of immobilization are risk factors. Measure taken to decrease their risk of deep vein thrombosis will consist of detailed education, as well as lower extremity range of motion. Chemical prophylaxis is not recommended based on patients history, procedure and postoperative plan. Planned procedure(s): Left first metatarsocuneiform joint fusion left foot hammertoe correction 2 through 5 partial metatarsal head resection left third metatarsal phalange and contracture releases of the second fourth fifth left foot with biopsy surgery WB status: NWB x 2 weeks followed by progressive WB x 10 weeks in a below the knee boot. Pain medication: Ibuprofen Tylenol Oxycodone Sergio Barry DPM documented in this encounter Plan of Treatment Upcoming Encounters Date Type Department Care Team (Late st Contact Info) Description 11/08/2024 9:45 AM EDT Office Visit Orthopedic Surgery - [place] [phone] [phone] Sergio Barry DPM [address] [address] documented as of this encounter Results * XR Foot 3+ Views bilat (09/05/2024 8:21 AM EST) Anatomical Region Laterality Modality Lower Extremities, Foot Bilateral Computed Radiography Narrative 09/05/2024 1:03 PM EST Right foot ??3 views No fracture. No radiopaque foreign joint spaces normal ?? Hammertoe contractures 2 through 5 MPJ contractures 2 through 5 Foot position rectus Normal talus navicular position normal calcaneal inclination normal symes line talus navicular joint to calcaneal cuboid joint Foot position Pes planus with Talus navicular uncovering decreased calcaneal inclination anterior displaced symes line talus navicular joint to calcaneal cuboid joint ?? Left foot 3 views No fracture. No radiopaque foreign joint spaces ?? Arthritis ?? moderate severe left first metatarsophalangeal joint Severe hammertoe contractures 2 through 5 MPJ contracture deformities 2 through 5 Foot position rectus Normal talus navicular position normal calcaneal inclination normal symes line talus navicular joint to calcaneal cuboid joint us Sergio Barry DPM IMG XR PROCEDURES Final R esult documented in this encounter Visit Diagnoses Diagnosis Arthritis of left ankle- Primary Follow-up exam Unspecified follow-up examination Metatarsalgia of left foot Hammer toe of left foot Contracture of joint of left foot Verruca plantaris Plantar wart documented in this encounter Care Teams Chicken Picker Relationship Specialty Start Date End Date Karlene Roldan MD [address] [place] [phone] PCP - General 05/07/23 documented as of this encounter
--- OUTSIDE RECORDS SUMMARY | 2024-10-03 09:10 | XMS_ITS | Encounter Summary ---
Author Organization [facility] Address [address] [place] [address] Care Team Providers Care Academy Education Director Name Role Phone Karlene Roldan MD Primary Care Provider + Encounter Details Date Type Department Care Team ([facility] st Contact Info) Description 09/14/2024 Telephone [facility] [address] [place], [place] [phone] Karlene Roldan MD [address] [place], [place] [phone] Social History Tobacco Use Types Packs/Day Years [...] Telephone Encounter - Berkley Kang MA - 09/14/2024 2:23 PM EST Tc to pt to r/s appt from 09/20/24 to the afternoon as PCP won't be in that morning. Appt has been rescheduled for 09/20/24 at 2:30 pm. documented in this encounter Plan of Treatment Not on file documented as of this encounter Visit Diagnoses Not on filedocumented in this encounter Additional Health Concerns Assessment Noted Time PHQ-9 Depression Total Score: 6 03/09/20 11:28 AM EDT documented as of this encounter Care Teams Academy Education Director Relationship Specialty Start Date End Date Karlene Roldan MD [address] [place] [phone] PCP - General Internal Medicine 04/03/23 documented as of this encounter
--- OUTSIDE RECORDS SUMMARY | 2024-10-03 09:10 | XMS_ITS | Clinical Summary ---
Author Organization [facility] [employer] [facility] Address [address] [place] [address] Phone Care Team Providers Care Mapping Technician Name Role Phone Karlene Roldan MD Primary Care Provider + [phone] Allergies Active Allergy Reactions Criticality Noted Date Comments Ibuprofen Swelling 02/29/2024 Metformin Diarrhea 02/29/2024 Medications amLODIPine (NORVASC) 10 mg tablet Daily Active dulaglutide (Trulicity) 1.5 mg/0.5 mL pen injector injection Inject 1.5 mg into the skin every 7 days. 12/31/19 24 Active dupilumab (Dupixent Pen) 300 mg/2 mL pen Inject 2 mL into the skin every 14 days. 06/05/20 21 Active losartan (COZAAR) 25 mg tablet Take 1 Tablet by mouth daily. 04/20/20 24 Active acetaminophen (TYLENOL ORAL) Take?by mouth. Active freestyle (Push Button Safety Lancets) 28 gauge lancets 1 Device by Does not apply route 2 times daily. 10/28/19 22 Active inhalational spacing device inhaler 1 Piece by Does not apply route every 6 hours as needed for Other (To use with albuterol). 09/26/19 22 Active bisacodyL (DULCOLAX) 5 mg EC tablet Take by mouth. Take 2 tabs by mouth right before beginning bowel prep Active ascorbic acid (VITAMIN C) 500 mg tablet Take 500 mg by mouth daily. Active aspirin 81 mg EC tablet Take 1 tablet (81 mg total) by mouth 1 (one) time each day. 90 each 07/05/20 24 025 Active famotidine (PEPCID) 20 mg tablet Take by mouth. Active atorvastatin (LIPITOR) 20 mg tablet Take 1 tablet (20 mg total) by mouth 1 (one) time each day. 30 each 09/07/19 026 Active metoprolol succinate (TOPROL-XL) 25 mg 24 hr tablet TAKE 12.5MG BY MOUTH 2 TIMES DAILY. 04/27/20 025 Discontinued Active Problems Problem Noted Date Diagnosed Date Arthritis of left ankle 09/05/2024 Metatarsalgia of left foot 09/05/2024 Hammer toe of left foot 09/05/2024 Contracture of joint of left foot 09/05/2024 Verruca plantaris 09/05/2024 Herniated lumbar intervertebral disc 06/05/2024 Overview (06/05/2024): L4, L5 and SI Sciatica 06/05/2024 Hyperlipidemia 05/05/2022 Eczema 04/08/2022 Coronary artery disease invo lving [place] coronary artery of [place] heart without angina pectoris 09/23/2021 Nonsustained ventricular tachycardia 09/23/2021 Primary hypertension 09/23/2021 Obstructive sleep apnea 09/01/2021 Overview (06/05/2024): [facility] Home sleep test 08/28/2021; weight 219; BMI 31; AHI 26, AI 15, AHI 12. 10 unclassified apneas, 80 obstructive apneas, 2 central apneas and 74 hypopneas. Overall oxygen saturation 90%; oxygen vanessa 73%. Obstructive sleep apnea-moderate with mostly obstructive apneas and hypopneas; with nocturnal hypoxemia based on 2021 home sleep test. Hypertrophic cardiomyopathy 08/13/2021 Paroxysmal atrial fibrillation 08/13/2021 Pneumonia due to COVID-19 virus 08/13/2021 STEMI involving right coronary artery 08/13/2021 Type 2 diabetes mellitus wit hout complication, without long-term current use of insulin 08/13/2021 Aortic atherosclerosis 03/22/2019 Osteoarthritis 03/22/2019 Overview (06/05/2024): Thoracic, & Lumbar Spine, Hips, Knees Arthritis of left hip 11/17/2018 Abdominal pain, chronic, left lower quadrant Overview (06/05/2024): T12/L1 dermatone. CT neg x 2, Colonoscopy 11/2016 with tubular adenoma, otherwise negative. MRIs without T12/L1/L2 stenosis or bulge (ortho says not from spine) Left carpal tunnel syndrome 09/07/2017 Tubular adenoma 12/07/2016 Overview (06/05/2024): 2017 CN, Repeat 5 yrs Neuropathic pruritus 10/05/2016 Overview (06/05/2024): Derm(09/16/16): gabapentin initiated Post herpetic neuralgia 10/01/2016 Overview (06/05/2024): T8 -L1 Encounters Date Type Department Care Team Description 09/18/2024 Telephone Orthopedic Surgery [facility] [address] [phone] Sergio Barry DPM postpone surgery 09/07/2024 10:50 AM EST Office Visit [facility] [address] [place] [phone] Jenifer Mckeon MD Coronary artery disease involving [place] coronary artery of [place] heart without angina pectoris (Primary Dx); Mixed hyperlipidemia; Primary hypertension 09/05/2024 8:30 AM EST Office Visit Orthopedic Surgery [facility] [address] [phone] Sergio Barry DPM Arthritis of left ankle (Primary Dx); Follow-up exam; Metatarsalgia of left foot; Hammer toe of left foot; Contracture of joint of left foot; Verruca plantaris 08/03/2024 2:30 PM EST Office Visit Orthopedic Surgery [facility] [address] [phone] Sergio Barry DPM Hammer toe of left foot (Primary Dx); Dermatophytosis of nail; Pain in toe of right foot; Pain in toe of left foot; Diabetic mononeuropathy simplex (CMS/HCC); Acquired hallux valgus of right foot; Acquired hallux valgus of left foot; Metatarsalgia of both feet; Verruca plantaris 07/31/2024 Telephone [facility] [address] [facility] [address] [place] [address] Aleksandra Chávez NP No Call No Show (Letter sent.) 07/26/[address] [facility] [address] [place] [address] Jenifer Mckeon MD Med Refill 07/07/[address] [facility] [address] [facility] [address] [place] [address] Mendy Alarcon [place] No Call No Show (Letter sent.) 07/05/[address] [facility] [address] [facility] [address] [place] [address] Jenifer Mckeon MD Med Refill from Last 3 Months Immunizations Name Administration Dates Next Due Tdap Tetanus diptheria acell ular pertussis (Boostrix; Adacel) 7yo and older 12/09/2016 Surgical History Surgery Date Site/Laterality Comments BACK SURGERY 05/07/2016 PROCEDURE: HISTORICAL BACK SURGERY; COMMENT: lumbar fusion with grafting of the facet joints at L3-4 and L4-5 levels, Dr. Conor Chapman OTHER SURGICAL HISTORY 11/03/2013 PROCEDURE: SKIN GRAFT <100SQCM; COM[facility] COL[facility]COPY 12/07/16 PROCEDURE: HISTORICAL COLONOSCOPY; COMMENT: Colon adenoma: Diminutive descending colonic; repeat in 5 yrs Medical History Medical History Date Comments HTN (hypertension) DX:HTN (hyper tension) Sciatica DX:Sciatica Herniated lumbar intervertebral disc DX:Herniated lumbar intervertebral disc; COMMENT: L4, L5 and SI Neuropathic pruritus 10/05/2016 DX:Neuropat hic pruritus; COMMENT: Derm(09/16/16): gabapentin initiated Abdominal pain, chronic, lef t lower quadrant 12/09/2017 DX:Abdominal pain, chronic, left lower quadrant Post herpetic neuralgia 10/01/2016 DX:Post herpetic neuralgia; COMMENT: T8 -L1 Tubular adenoma 12/07/2016 DX:Tubular adeno ma; COMMENT: 2017 CN, Repeat 5 yrs Osteoarthritis 03/22/2019 DX:Osteoarthriti s; COMMENT: Thoracic, & Lumbar Spine, Hips, Knees Aortic atherosclerosis (CMS/HCC) 03/22/2019 DX:Aortic atherosclerosis (HCC) Left carpal tunnel syndrome 09/07/2017 DX:L eft carpal tunnel syndrome Paroxysmal atrial fibrillati on (CMS/HCC) DX:Paroxysmal atrial fibrill ation (HCC); COMMENT: one burst of A. fib on telemetry while in the CCU in Jul 2021 Family History Medical History Relation Name Comments Diabetes Father Hypertension Diabetes Father's side Hypertension, Aunts x 2 Other cancer Maternal Grandfather type un known Diabetes Paternal Grandfather Prostat e Cancer Prostate cancer Uncle x 2 Relation Name Status Comments Father Father's side Maternal Grandfather Paternal Grandfather Uncle Social History Tobacco Use Types Packs/Day Years Used Date Smoking Tobacco: Former Cigarettes 0.5 27.4 0 1988 - 03/16/2016 Smokeless Tobacco: Never Tobacco Cessation:Counseling Given: Not Answered Alcohol Use Standard Drinks/Week Comments No 0 (1 standard drink = 0.6 oz pur e alcohol) Sex and Gender Information Value Date Recorded Sex Assigned at Not on file Legal Sex Male 4:03 AM EST Gender Identity Not on file Sexual Orientation Not on file Obstetrics History Last Filed Vital Signs Vital Sign Reading [...] Mass Index 27.55 09/07/2024 10:43 AM EST Plan of Treatment Upcoming Encounters Date Type Department Care Team (Late st Contact Info) Description 11/08/2024 9:45 AM EDT Office Visit Orthopedic Surgery - [place] [address] [phone] Sergio Barry, DPM [address] [phone] Health Maintenance Due Date Last Done Comments Diabetes: Annual Foot Exam 1968 Diabetes: Annual Retina Eye Exam 1968 Hepatitis A Vaccines (1 of 2 - Risk 2-dose series) 1977 Pneumococcal Vaccine: 50+ Years (1 of 2 - PCV) 1977 Pneumococcal Vaccine: Pediatrics (0 to 5 Years) and At-Risk Patients (6 to 64 Years) (1 of 2 - PCV) 1977 Zoster Vaccines (1 of 2) 2008 RSV Immunization Patients 60+ Years Old (1 - Risk 60-74 years 1-dose series) 2018 Abdominal Aortic Aneurysm (AAA) Screen 07/25/2022 Colorectal Cancer Screening: Colonoscopy 07/25/2022 12/07/2016 Medicare Annual Wellness Visit 07/25/2022 Social Influencers of Health Screening 07/25/2022 Falls Risk Assessment 10/15/2023 Diabetes: Annual Urine Albumin-Creatinine Ratio (uACR) 01/05/2024 01/04/2023 Depression Screening 03/09/2024 03/09/2023 COVID-19 Vaccine ( season) 2024 Influenza Vaccine (#1) 2024 08/01/2021 Diabetes: Blood Sugar Control Test (HGBA1C) 11/06/2024 05/09/2024, 05/09/2024, 04/28/2024, Additional history exists Diabetes: Annual GFR (Glomerular Filtration Rate) 05/09/2025 05/09/2024, 05/09/2024 Hypertension/CHF/CAD Annual BMP Blood Test 05/09/2025 05/09/2024, 05/09/2024 DTaP,Tdap,and Td Vaccines (3 - Td or Tdap) 12/09/2026 12/09/2016, 09/23/2013 Cholesterol Screening (Lipid Panel) 05/09/2029 05/09/2024, 05/09/2024, 07/07/2023 Hepatitis C Screening Completed 07/07/2023, 017 HIB Vaccines Aged Out No longer eligi [...] on patient's age to complete this topic MMR Vaccines Aged Out No longer eligi ble based on patient's age to complete this topic Meningococcal ACWY Vaccine Aged Out N o longer eligible based on patient's age to complete this topic Meningococcal B Vacine Aged Out No lo nger eligible based on patient's age to complete this topic RSV Immunization Patients Under 20 months Aged Out No longer eligible based on patient's age to complete this topic Varicella Vaccines Aged Out No longer eligible based on patient's age to complete this topic Procedures Procedure Name Priority Date/Time Associated Diagnosis Comments ECG 12-LEAD Routine 09/07/2024 10:51 AM EST Coronary artery disease involving [place] coronary artery of [place] heart without angina pectoris XR FOOT 3+ VIEWS BILAT Routine 09/05/2024 8:21 AM EST Follow-up exam ANNUAL BMP BLOOD TEST Routine 05/09/2024 HEMOGLOBIN A1C Routine 05/09/2024 LIPID PANEL Routine 05/09/2024 URINE ALBUMIN CREATININE RATIO Routine 01/04/2023 HEPATITIS C SCREENING Routine 03/03/2017 COLONOSCOPY Routine 12/07/2016 from Last 3 Months or Most Recently Relevant to Health Maintenance Results * ECG 12 lead (09/07/2024 10:51 AM EST) Ventricular Rate ECG 75 BPM GEMUSE Atrial Rate 75 BPM GEMUSE P-R Interval 138 ms GEMUSE QRS Duration 128 ms GEMUSE Q-T Interval 440 ms GEMUSE QTc 491 ms GEMUSE P Wave [place] 41 degrees GEMUSE R [place] -50 degrees GEMUSE T [place] 81 degrees GEMUSE ECG Interpretation Sinus rhythm with Premature atrial complexes and Premature ventricular complexes or Fusion complexes Left axis deviation Right bundle branch block Abnormal ECG When compared with ECG of 23-NOV-2017 14:16, Fusion complexes are now Present Premature ventricular complexes are now Present Right bundle branch block is now Present Confirmed by JENIFER MCKEON ([id number]) on 09/07/2024 11:21:59 AM TALON 09/07/2024 10:5 1 AM EST 09/07/2024 11:21 AM EST Jenifer Mckeon MD ECG ORDERABLES Final Result TALON * XR Foot 3+ Views bilat (09/05/2024 [...] talus navicular joint to calcaneal cuboid joint Sergio Barry DPM IMG XR PROCEDURES Final R esult * Annual BMP Blood Test (05/09/2024) Pathologist [facility] Annual BMP Blood Test Abstracted Prat[facility] Provider HEALTH MAINTENANCE Final Result * Hemoglobin A1c (05/09/2024) Pathologist [facility] Hemoglobin A1C 5.9 <=6.5 % Blood Venous blood specimen / Unknown Historical Provider LAB BLOOD ORDERABLES Darlyn l Result * Lipid panel (05/09/2024) Pathologist [facility] LDL/HDL Ratio 2 0 - 4 Triglycerides 40 0 - 150 mg/dL Cholesterol 144 0 - 200 mg/dL HDL 60 >=40 mg/dL LDL Cholesterol 76 0 - 100 mg/dL Blood Venous blood specimen / Unknown Result [facility] Historical Provider LAB BLOOD ORDERABLES Darlyn l Result * Urine Albumin Creatinine Ratio (01/04/2023) Pathologist [facility] Urine Albumin Creatinine Ratio Abstracted Historical Provider HEALTH MAINTENANCE Final Result * Hepatitis C Screening (03/03/2017) Pathologist [facility] Hepatitis C Screening Abstracted Result [facility] Provider HEALTH MAINTENANCE Final Result * Colonoscopy (12/07/2016) Pathologist [facility] Colonoscopy No interpretation with ,abstracted Anatomical Region Laterality Modality Other Result [facility] Historical Provider HEALTH MAINTENANCE Final Result from Last 3 Months or Most Recently Relevant to Health Maintenance Insurance MEDICARE Member Subscriber Plan / Payer (Ef fective 2017-Present) Name:Delvin Michelle Relation to Subscriber:Self Name:Delvin Michelle Payer ID:[id number] Group ID:[id number] Type:Not on file Address: [facility] [address] [phone] Advance Directives Documents on File Type Date Recorded Patient Supervisor Travel Information Center Expl anation Health Care Decision (hx) 11/24/2017 AD MIRANDA DIRECTIVE Health Care Decision (hx) 11/24/2017 AD MIRANDA DIRECTIVE Health Care Decision (hx) 11/24/2017 AD MIRANDA DIRECTIVE Health Care Decision (hx) 11/24/2017 AD MIRANDA DIRECTIVE Health Care Decision (hx) 11/24/2017 AD MIRANDA DIRECTIVE Health Care Decision (hx) 11/24/2017 AD MIRANDA DIRECTIVE Health Care Decision (hx) 11/24/2017 AD MIRANDA DIRECTIVE Health Care Decision (hx) 11/24/2017 AD MIRANDA DIRECTIVE Health Care Decision (hx) 11/24/2017 AD MIRANDA DIRECTIVE Health Care Decision (hx) 11/24/2017 AD MIRANDA DIRECTIVE Health Care Decision (hx) 11/24/2017 AD MIRANDA DIRECTIVE Health Care Decision (hx) 11/24/2017 AD MIRANDA DIRECTIVE Health Care Decision (hx) 11/24/2017 AD MIRANDA DIRECTIVE Health Care Decision (hx) 11/24/2017 AD MIRANDA DIRECTIVE Care Teams Mapping Technician Relationship Specialty Start Date End Date Karlene Roldan MD [address] [place] [phone] PCP - General 05/07/23
--- OUTSIDE RECORDS SUMMARY | 2024-10-03 09:10 | XMS_ITS | Encounter Summary ---
Author Organization [employer] Address [address] [facility] 7t [place] [address] Care Team Providers Care Market Gardener Name Role Phone Karlene Roldan MD Primary Care Provider + Reason for Visit * Reason Onset Date Comments Med Refill 04/20/2024 Encounter Details Date Type Department Care Team ([facility] st Contact Info) Description 04/20/2024 Telephone [facility] [address] [place], [place] [phone] Karlene Roldan MD 230 [place] [address] Med Refill Social History Tobacco Use Types Packs/Day Years [...] encounter Miscellaneous Notes * Telephone Encounter - Carito Woods LPN - 04/20/2024 3:24 PM EDT Medications not prescribed by PCP. * Telephone Encounter - Tyrese Gutiérrez - 04/20/2024 3:16 PM EDT TC from pt requesting medication refill. Medications needing refill : amLODIPine (Norvasc) 10 MG tablet , losartan (Cozaar) 25 MG tablet To be sent to: [facility] - [place], [place] - [address] [place] [address] documented in this encounter Plan of Treatment Not on file documented as of this encounter Visit Diagnoses Not on filedocumented in this encounter Additional Health Concerns Assessment Noted Time PHQ-9 Depression Total Score: 6 03/09/20 23 11:28 AM EDT documented as of this encounter Care Teams Market Gardener Relationship Specialty Start Date End Date Karlene Roldan MD [address] [facility] [place] [address] PCP - General Internal Medicine 04/03/23 documented as of this encounter
--- OUTSIDE RECORDS SUMMARY | 2024-10-03 09:10 | XMS_ITS | Encounter Summary ---
Author Organization [employer] Address [address] [place] [address] Care Team Providers Care Speed Operator Name Role Phone Karlene Roldan MD Primary Care Provider + Reason for Visit * Reason Comments Med Refill Encounter Details Date Type Department Care Team ([facility] st Contact Info) Description 09/16/[address] [facility] [address] [place], [place] [phone] Maria Del Rosario Haddad NP [address] [place], [place] [phone] Chronic bilateral low back pain without sciatica Social History Tobacco Use Types Packs/Day Years [...] as of this encounter Visit Diagnoses Diagnosis Chronic bilateral low back pain without sciatica documented in this encounter Additional Health Concerns Assessment Noted Time PHQ-9 Depression Total Score: 6 03/09/20 11:28 AM EDT documented as of this encounter Care Teams Speed Operator Relationship Specialty Start Date End Date Karlene Roldan MD [address] [place] [phone] PCP - General Internal Medicine 04/03/23 documented as of this encounter
== END 2024-10-03 09:12 | disposition home or self-care (01) ==
PROVIDERS: PCP Internal Medicine; Visit Provider Surgery Vascular Surgery
DX: I83.11 Varicose veins of right lower extremity with inflammation (principal)
CPT/HCPCS: 99213

== ENCOUNTER → 2024-10-03 08:42 | Outpatient (BNVA) | payer OTHER, SELFPAY | PROVIDERS: PCP Internal Medicine; Visit Provider Surgery Vascular Surgery | DX: I83.11 Varicose veins of right lower extremity with inflammation (principal); F17.210 Nicotine dependence, cigarettes, uncomplicated | CPT/HCPCS: 99212 ==

== ENCOUNTER 2024-11-20 07:48 | Outpatient (AMB) | payer OTHER, SELFPAY ==
--- OUTSIDE RECORDS SUMMARY | 2024-11-20 07:52 | XMS_ITS | Encounter Summary ---
Author Organization [employer] Address [address] [facility] [facility] [facility] [address] [place] [address] Care Team Providers Care Head Girls Golf Coach Name Role Phone Karlene Roldan MD Primary Care Provider + Encounter Details Date Type Department Care Team ([facility] st Contact Info) Description 10/26/2023 Telephone [facility] 230 [place], [place] [phone] Karlene Roldan MD 230 [place], [place] [phone] Social History Tobacco Use Types Packs/Day Years [...] as of this encounter Plan of Treatment Upcoming Encounters Date Type Department Care Team (Late st Contact Info) Description 12/14/2024 11:15 AM EDT Office Visit [facility] [address] [place] [phone] Karlene Roldan MD [address] [place] [phone] 02/07/2025 11:00 AM EDT Office Visit [facility] [address] [place] [address] Misti Zelaya documented as of this encounter Visit Diagnoses Not on filedocumented in this encounter Additional Health Concerns Assessment Noted Time PHQ-9 Depression Total Score: 6 03/09/20 11:28 AM EDT documented as of this encounter Care Teams Head Girls Golf Coach Relationship Specialty Start Date End Date Karlene Roldan MD [address] [place] [phone] PCP - General Internal Medicine 04/03/23 documented as of this encounter
--- OUTSIDE RECORDS SUMMARY | 2024-11-20 07:52 | XMS_ITS | Encounter Summary ---
Author Organization [employer] Address [address] [place] [address] Care Team Providers Care Insole Tacker Name Role Phone Karlene Roldan MD Primary Care Provider + Reason for Visit * Reason Comments Med Refill Encounter Details Date Type Department Care Team ([facility] st Contact Info) Description 05/28/2023 Refill [facility] [address] [place], [place] [phone] Karlene Roldan MD 230 [place], [place] [phone] Lumbar radiculopathy Social History Tobacco Use Types [...] Description 12/14/2024 11:15 AM EDT Office Visit [facility] [address] [place] [address] Karlene Roldan MD [address] [place] [address] 02/07/2025 11:00 AM EDT Office Visit [facility] [address] [place] [phone] Misti Zelaya documented as of this encounter Visit Diagnoses Diagnosis Lumbar radiculopathy Thoracic or lumbosacral neuritis or radiculitis, unspecified documented in this encounter Additional Health Concerns Assessment Noted Time PHQ-9 Depression Total Score: 6 03/09/20 23 11:28 AM EDT documented as of this encounter Care Teams Insole Tacker Relationship Specialty Start Date End Date Karlene Roldan MD [address] [place] [phone] PCP - General Internal Medicine 04/03/23 documented as of this encounter
--- OUTSIDE RECORDS SUMMARY | 2024-11-20 07:52 | XMS_ITS | Encounter Summary ---
Author Organization [employer] Address [address] [facility] 7[address] [place] [address] Care Team Providers Care Roof Painter Name Role Phone Karlene Roldan MD Primary Care Provider + Reason for Visit * Reason Comments Med Refill Encounter Details Date Type Department Care Team ([facility] st Contact Info) Description 07/02/[address] [facility] [address] [place], [place] [phone] Fernanda Evangelista BDS Social History Tobacco Use [...] Description 12/14/2024 11:15 AM EDT Office [address] [facility] [address] [place] [address] Karlene Roldan MD 230 [place] [address] 02/07/2025 11:00 AM EDT Office Visit [facility] 230 [place] [address] Misti Zelaya documented as of this encounter Visit Diagnoses Not on filedocumented in this encounter Additional Health Concerns Assessment Noted Time PHQ-9 Depression Total Score: 6 03/09/20 11:28 AM EDT documented as of this encounter Care Teams Roof Painter Relationship Specialty Start Date End Date Karlene Roldan MD [address] [place] [address] PCP - General Internal Medicine 04/03/23 documented as of this encounter
--- OUTSIDE RECORDS SUMMARY | 2024-11-20 07:53 | XMS_ITS | Clinical Summary ---
Author Organization [facility] Address [address] [address] Phone Care Team Providers Care Bow Tacker Name Role Phone Karlene Roldan MD Primary Care Provider Allergies Active Allergy Reactions Criticality Noted Date Comments Ibuprofen Swelling 02/29/2024 Metformin Diarrhea 02/29/2024 Medications amLODIPine (NORVASC) 10 mg tablet Daily Active dulaglutide (Trulicity) 1.5 mg/0.5 mL pen injector injection Inject 1.5 mg into the skin every 7 days. 4 Active dupilumab (Dupixent Pen) 300 mg/2 mL pen Inject 2 mL into the skin every 14 days. 1 Active losartan (COZAAR) 25 mg tablet Take 1 Tablet by mouth daily. 4 Active acetaminophen (TYLENOL ORAL) Take?by mouth. Active freestyle (Push Button Safety Lancets) 28 gauge lancets 1 Device by Does not apply route 2 times daily. 2 Active inhalational spacing device inhaler 1 Piece by Does not apply route every 6 hours as needed for Other (To use with albuterol). 2 Active bisacodyL (DULCOLAX) 5 mg EC tablet Take by mouth. Take 2 tabs by mouth right before beginning bowel prep Active ascorbic acid (VITAMIN C) 500 mg tablet Take 500 mg by mouth daily. Active aspirin 81 mg EC tablet Take 1 tablet (81 mg total) by mouth 1 (one) time each day. 90 each 4 07/05/20 25 Active famotidine (PEPCID) 20 mg tablet Take by mouth. Activ e atorvastatin (LIPITOR) 20 mg tablet Take 1 tablet (20 mg total) by mouth 1 (one) time each day. 30 each 11 5 09/07/19 26 Active Active Problems Problem Noted Date Diagnosed Date Arthritis of left ankle 09/05/2024 Metatarsalgia of left foot 09/05/2024 Hammer toe of left foot 09/05/2024 Contracture of joint of left foot 09/05/2024 Verruca plantaris 09/05/2024 Herniated lumbar intervertebral disc 06/05/2024 Overview (06/05/2024): L4, L5 and SI Sciatica 06/05/2024 Hyperlipidemia 05/05/2022 Eczema 04/08/2022 Coronary artery disease invo lving soboba coronary artery of soboba heart without angina pectoris 09/23/2021 Nonsustained ventricular tachycardia 09/23/2021 Primary hypertension 09/23/2021 Obstructive sleep apnea 09/01/2021 Overview (06/05/2024): [facility] Home sleep test 08/28/2021; weight 219; BMI [...] Encounters Date Type Department Care Team Description 11/08/2024 9:45 AM EDT Office Visit Orthopedic Surgery [facility] [address] [phone] Sergio Barry DPM Metatarsalgia of left foot (Primary Dx); Contracture of joint of left foot; Hammer toe of left foot; Dermatophytosis of nail; Verruca plantaris; Diabetic mononeuropathy simplex (CMS/HCC); Pain in toe of right foot; Acquired hallux valgus of right foot; Pain in toe of left foot; Arthritis of left ankle; Acquired hallux valgus of left foot; Metatarsalgia of both feet 09/18/2024 Telephone Orthopedic Surgery [facility] [address] [phone] Sergio Barry DPM postpone surgery 09/07/2024 10:50 AM EST Office Visit [facility] [address] [place] [phone] Jenifer Mckeon MD Coronary artery disease involving soboba coronary artery of soboba heart without angina pectoris (Primary Dx); Mixed hyperlipidemia; Primary hypertension 09/05/2024 8:30 AM EST Office Visit Orthopedic [facility] [address] [phone] Sergio Barry DPM Arthritis of left ankle (Primary Dx); Follow-up exam; Metatarsalgia of left foot; Hammer toe of left foot; Contracture of joint of left foot; Verruca plantaris from Last 3 Months Immunizations Name Administration [...] <100SQCM; COMMENT: [facility]16 PROCEDURE: HISTORICAL COLONOSCOPY; COMMENT: Colon [...] - - Weight 87.1 kg (192 lb) 11/08/2024 9:29 AM EDT Height 177.8 cm (5' 10 ) 11/08/2024 9:29 AM EDT Body Mass Index 27.55 11/08/2024 9:29 AM EDT Plan of Treatment Upcoming Encounters Date Type Department Care Team (Late st Contact Info) Description 01/11/2025 10:15 AM EDT Office Visit Orthopedic Surgery - [place] [address] [phone] Sergio Barry, DPM [address] [phone] Health Maintenance Due Date Last Done Comments Diabetes: Annual Foot Exam 1968 Diabetes: Annual Retina Eye Exam 1968 Pneumococcal Vaccine: 50+ Years (1 of 2 - PCV) 1977 Zoster Vaccines (1 of 2) 2008 RSV Immunization Adult Patients (1 - Risk 60-74 years 1-dose series) 2018 Abdominal Aortic Aneurysm (AAA) Screen 07/25/2022 Colorectal Cancer Screening: Colonoscopy 07/25/2022 12/07/2016 Medicare Annual Wellness Visit 07/25/2022 Social Influencers of Health Screening 07/25/2022 Falls Risk Assessment 10/15/2023 Diabetes: Annual Urine Albumin-Creatinine Ratio (uACR) 01/05/2024 01/04/2023 Depression Screening 03/09/2024 03/09/2023 COVID-19 Vaccine () 04/16/2024 08/06/2022, 01/29/2022, 09/05/2021 Diabetes: Blood Sugar Control Test (HGBA1C) 11/06/2024 05/09/2024, 05/09/2024, 04/28/2024, Additional history exists Influenza Vaccine (Season Ended) 2025 08/01/2021 Diabetes: Annual GFR (Glomerular Filtration Rate) 05/09/2025 [...] patient's age to complete this topic Hepatitis A Vaccines Aged Out No long er eligible [...] 10:51 AM EST Coronary artery disease involving soboba coronary artery of soboba heart without angina pectoris XR FOOT 3+ VIEWS BILAT Routine 09/05/2024 8:21 AM EST Follow-up exam HM ANNUAL BMP BLOOD TEST Routine 05/09/2024 HEMOGLOBIN [...] GEMUSE QTc 491 ms GEMUSE P Wave Needles 41 degrees GEMUSE R Needles -50 degrees GEMUSE T Needles 81 degrees GEMUSE ECG Interpretation Sinus rhythm with Premature atrial complexes and Premature ventricular complexes or Fusion complexes Left axis deviation Right bundle branch block Abnormal ECG When compared with ECG of 23-NOV-2017 14:16, Fusion complexes are now Present Premature ventricular complexes are now Present Right bundle branch block is now Present Confirmed by JENIFER MCKEON ([id number]) on 09/07/2024 11:21:59 AM GEMUSE 09/07/2024 10:5 1 AM EST 09/07/2024 11:21 AM EST us Jenifer Mckeon MD ECG ORDERABLES Final Result GEMUSE * XR Foot 3+ Views bilat (09/05/2024 [...] talus navicular joint to calcaneal cuboid joint Result [facility] Sergio Barry DPM IMG XR PROCEDURES Final R esult * Annual BMP Blood Test (05/09/2024) Pathologist [facility] Annual BMP Blood Test Abstracted Result [facility] Provider HEALTH MAINTENANCE Final Result * Hemoglobin A1c (05/09/2024) [facility] Hemoglobin A1C 5.9 <=6.5 % Blood Venous blood specimen / Unknown Result [facility] Provider LAB BLOOD ORDERABLES Darlyn l Result * Lipid panel (05/09/2024) [facility] LDL/HDL Ratio 2 0 - 4 Triglycerides 40 0 - 150 mg/dL Cholesterol 144 0 - 200 mg/dL HDL 60 >=40 mg/dL LDL Cholesterol 76 0 - 100 mg/dL Blood Venous blood specimen / Unknown Result [facility] Provider LAB BLOOD ORDERABLES Darlyn l Result * Urine Albumin Creatinine Ratio (01/04/2023) [facility] Urine Albumin Creatinine Ratio Abstracted Result [facility] Provider HEALTH MAINTENANCE Final Result * Hepatitis C Screening (03/03/2017) [facility] Hepatitis C Screening Abstracted Result [facility] Provider HEALTH MAINTENANCE Final Result * Colonoscopy (12/07/2016) Colonoscopy No interpretation with ,abstracted Anatomical Region Laterality Modality Other Historical Provider HEALTH MAINTENANCE Final Result from Last 3 Months or Most Recently Relevant to Health Maintenance Insurance [employer] MEDICARE Member Subscriber Plan / Payer (Ef fective 2017-Present) Name:Delvin Michelle Relation to Subscriber:Self Name:Delvin Michelle Payer ID:[id number] Group ID:[id number] Type:Not on file Address: [place] [address] [phone] Advance Directives Documents on File Type Date Recorded Patient Facilities Project Manager Expl anation Health Care Decision (hx) 11/24/2017 [...] (hx) 11/24/2017 AD MIRANDA DIRECTIVE Care Teams Bow Tacker Relationship Specialty Start Date End Date Karlene Roldan MD [address] [place] [phone] PCP - General 05/07/23
--- OUTSIDE RECORDS SUMMARY | 2024-11-20 07:53 | XMS_ITS | Clinical Summary ---
Author Organization [employer] Address [address] [facility] [address] [place] [address] Care Team Providers Care Police Officer Name Role Phone Karlene Chamorro MD Primary Care Provider + Allergies Active Allergy Reactions Criticality Noted Date Comments Ibuprofen Swelling Low 07/29/2021 Leg swelling reported Metformin Diarrhea 02/29/2024 Medications loperamide (Imodium A-D) 2 MG tabletIndications :Opioid use disorder 1 or 2 tabs PO [...] Buprenorphine HCl-Naloxone HCl (Suboxone) 8-2 MG SL filmIndications:U ncomplicated opioid dependence (CMS/HCC) Place 1 Film under the tongue in the morning for 7 days. 7 Film 023 Active docusate sodium (Colace) 100 MG capsuleIndication s:Uncomplicated opioid dependence (CMS/HCC) TAKE 1-2 CAPSULES BY MOUTH AT BEDTIME NEEDED FOR CONSTIPATION 60 capsule 2 024 Active buPROPion XL (Wellbutrin XL) 150 MG 24 hr tablet Take 1 tablet (150 mg) by mouth in the morning. Do not crush, chew, or split. 30 tablet 6 024 2024 Active nicotine (Nicoderm CQ) 7 MG/24HR patchIndications: Tobacco use disorder Apply one or 2 patches daily as instructed. 30 patch Active nicotine polacrilex (Commit) 2 MG lozengeIndication s:Tobacco use disorder DISSOLVE 1 LOZENGE BY MOUTH EVERY 2 TO 4 HOURS NEEDED instead OF cigarette 72 lozenge 2 Active chlorhexidine (Peridex) 0.12 % solution SWISH 15 ML BY MOUTH FOR 30 SECONDS THEN SPIT OUT TWICE DAILY. DO NOT RINSE 473 mL Active amLODIPine (Norvasc) 10 MG tabletIndications :Essential (primary) hypertension TAKE 1 TABLET BY MOUTH EVERY DAY 90 tablet 11 Active Aspirin Low Dose 81 MG chewable tabletIndications :Atherosclerotic heart disease of [place] coronary artery without angina pectoris CHEW 1 TABLET BY MOUTH EVERY DAY 30 tablet 11 024 Active pregabalin (Lyrica) 150 MG capsuleIndication s:Chronic bilateral low back pain without sciatica TAKE 1 CAPSULE BY MOUTH THREE TIMES DAILY 120 capsule Active naproxen (Naprosyn) 500 MG tabletIndications :Osteoarthritis of right knee, unspecified osteoarthritis type Take 1 tablet (500 mg) by mouth 2 times daily. 60 tablet 2 025 2024 Active losartan (Cozaar) 25 MG tabletIndications :Type 2 diabetes mellitus without complications (CMS/HCC) TAKE 1 TABLET BY MOUTH EVERY DAY 90 tablet Active famotidine (Pepcid) 20 MG tabletIndications :Dyspepsia TAKE 1 TABLET BY MOUTH TWICE DAILY 60 tablet 025 Active atorvastatin (Lipitor) 20 MG tablet Take 1 tablet by mouth Once per day. 025 Active amoxicillin (Amoxil) 500 MG capsule Take 4 capsules of amoxicillin 500 mg 1 hour prior dental procedure 12 capsule 025 Active amoxicillin (Amoxil) 500 MG capsule Take 1 capsule (500 mg) by mouth every 8 (eight) hours for 7 days. 21 capsule 025 2024 Active chlorhexidine (Peridex) 0.12 % solution Use 15 mL in the mouth or throat if needed (for mouthwash 15 ml for 30 seconds, swish and spit) for up to 14 days. 473 mL 025 2024 Active losartan (Cozaar) 25 MG tabletIndications :Type 2 diabetes mellitus without complications (CMS/HCC) TAKE 1 TABLET BY MOUTH EVERY DAY 90 tablet 024 2024 Discontinued(R eorder (will not trigger notification to Pharmacy)) famotidine (Pepcid) 20 MG tabletIndications :Dyspepsia TAKE 1 TABLET BY MOUTH TWICE DAILY 60 tablet 025 2024 Discontinued(R eorder (will not trigger notification to Pharmacy)) neomycin-polymyxi n-dexAMETHasone (Maxitrol) 0.1 % ophthalmic suspension Administer 1 drop into the right eye 4 times daily for 10 days. 5 mL 1 025 2024 Active Problems Problem Noted Date Diagnosed Date Osteoarthritis of right knee 10/06/2024 Assessment & Plan (10/06/2024 11:56 AM EST): Pt has OA, this is a chronic issue Pt agreeable to trying naproxen 500 mg BID for pain control, advised pt to call if not tolerated. Pt denies anaphylaxis or angioedema with ibuprofen. Referred to PT Advised pt to f/u with PCP Arthritis of left ankle 09/05/2024 Contracture of joint of left foot 09/05/2024 Hammer toe of left foot 09/05/2024 Metatarsalgia of left foot 09/05/2024 Verruca plantaris 09/05/2024 Hematuria 06/21/2024 Assessment & Plan (06/21/2024 3:49 [...] Urology. -ordered urine and kidney us 06/06/24 Herniated lumbar intervertebral disc 06/05/2024 Overview (11/13/2024): L4, L5 and SI Sciatica 06/05/2024 Mixed stress and urge urinary incontinence 04/28 [...] apnea) 11/25/2023 Overview (11/25/2023): Sleep study at [facility] (see [facility]) showed AHI 26 Epigastric pain 10/21/2023 Assessment & Plan (11/25/2023 3:25 PM EDT): Due to hx smoking + weight loss, I will refer to GI ([facility]). Counseled to quit smoking Advised to monitor [...] found on CT scan in 2020 from [facility], probably at the time of ACS. [...] unclear if he'll continue to FU with [facility] endocrinology [facility]. I will rx Trulicity [...] suboxone x 3 doses only sent to [facility] pharmacy in [place] as he missed regular pharmacy pickle pumper yesterday and it is closed for the weekend, he has mild withdrawal sxs. Patient will pickle pumper remaining dose on Wednesday, will contact his [...] in 1m for an OV and exam. Hyperlipidemia 05/05/2022 Eczema 04/08/2022 Nonsustained ventricular tachycardia 09/23/2021 Primary hypertension 09/23/2021 Coronary artery disease invo lving k[place] coronary artery of [place] heart without angina pectoris 09/23/2021 Obstructive sleep apnea 09/01/2021 Overview (11/13/2024): [facility] Home sleep test 08/28/2021; weight 219; BMI 31; AHI 26, AI 15, AHI 12. 10 unclassified apneas, 80 obstructive apneas, 2 central apneas and 74 hypopneas. Overall oxygen saturation 90%; oxygen vanessa 73%. Obstructive sleep apnea-moderate with mostly obstructive apneas and hypopneas; with nocturnal hypoxemia based on 2021 home sleep test. Paroxysmal atrial fibrillation 08/13/2021 STEMI involving right coronary artery 08/13/2021 Type 2 diabetes mellitus wit hout complication, without long-term current use of insulin 08/13/2021 CAD (coronary artery disease) 07/24/2021 Overview (04/03/2023): Sp STEMI and PCI/stent to RCA ([facility]). ECG with LVH + EF 75% -Metoprolol [...] outside hospital 07/13/2021 per previous records in [facility]. Continue current meds: -Metoprolol tartrate 12.5 mg twice daily -Losartan 25 mg daily -Atorvastatin 80 mg daily -Aspirin 81 mg daily -Counseled to quit smoking. -Will fu with cardiology Pneumonia due to COVID-19 virus 07/24/2021 Lumbar radiculopathy 09/07/2019 Overview (11/25/2023): Had PT, epidural injections in the past. Last Assessment & Plan: According to discharge paperwork from [facility], he was discharged on methocarbamol, which we [...] recommended exercises and fu with me in Assessment & Plan (04/03/2023 11:51 AM EDT): He could be having exacerbation of pain at this time, radiated to left leg/foot. Will restart low dose Lyrica and titrate up, continue methocarbamol and fu w me in 1m Obtain records form [facility] pain clinic/neurology Status post left hip replacement 04/12/2019 Osteoarthritis 03/22/2019 Overview (11/13/2024): Thoracic, & Lumbar Spine, Hips, Knees Arthritis of left hip 11/17/2018 Abdominal pain, chronic, left lower quadrant Overview (11/13/2024): T12/L1 dermatone. CT neg x 2, Colonoscopy 11/2016 with tubular adenoma, otherwise negative. MRIs without T12/L1/L2 stenosis or bulge (ortho says not from spine) Left carpal tunnel syndrome 09/07/2017 Tubular adenoma 12/07/2016 Overview (11/13/2024): 2017 CN, Repeat 5 yrs Neuropathic pruritus 10/05/2016 Overview (11/13/2024): Derm(09/16/16): gabapentin initiated Post herpetic neuralgia 10/01/2016 Overview (11/13/2024): T8 -L1 Resolved Problems Problem Noted Date Diagnosed Date Resolved Date Hypertrophic cardiomyopathy 08/13/2021 11/13/2024 Aortic atherosclerosis 03/22/201911/13 Encounters Date Type Department Care Team Description 11/13/2024 9:00 AM EDT Office Visit [facility] [address] [place] [phone] Dori Ching DDS Encounter for dental examination (Primary Dx); Dental calculus; Periodontal disease; Acute periodontal abscess 11/02/2024 10:40 AM EDT Office Visit [facility] [address] [place] [address] Mckenzie Adan MD Acute bacterial conjunctivitis of right eye (Primary Dx) 10/31/2024 Refill [facility] [address] [place] [address] Karlene Chamorro MD Type 2 diabetes mellitus without complications ([facility]); Dyspepsia 10/04/2024 3:30 PM EST Office Visit [facility] [address] [place] [phone] Maksim GabrielMORENA Osteoarthritis of right knee, unspecified osteoarthritis type (Primary Dx) 09/20/2024 Telephone [facility] [address] [place] [phone] Karlene Chamorro MD 09/19/[address] [phone] Karlene Chamorro MD Chart prep 09/16/2024 Refill [facility] [address] [place] [phone] Maria Del Rosario Haddad NP Chronic bilateral low back pain without sciatica 09/14/[address] [address] Karlene Chamorro MD 09/07/2024 Refill [facility] [address] [place], [place] [phone] Karlene Chamorro MD Dyspepsia 09/07/2024 Patient Outreach [address] [phone] Karlene hCamorro MD Pre-visit Planning (SDOH screening negative and tobacco screening positive) from Last 3 Months Immunizations Name Administration Dates Next Due Influenza injectable quadrivalent preservative f ree 08/01/2021 Social History Tobacco Use Types Packs/Day Years Used Date Smoking Tobacco: Some Days Cigarettes Last attempted to quit: 10/01/2023 Passive Smoke Exposure: Current Smokeless Tobacco: Never Tobacco Cessation:Ready to Q [...] Sign Reading Time Taken Comments Blood Pressure 126/72 11/13/2024 9:12 AM EDT Pulse 71 11/02/2024 10:28 AM EDT Temperature 36.8 ??C (98.2 ??F) 11/02/2024 10:28 AM E DT Respiratory Rate 18 11/02/2024 10:28 AM EDT Oxygen Saturation 97% 11/02/2024 10:28 AM EDT Inhaled Oxygen Concentration - - Weight 93 kg (205 lb) 11/02/2024 10:28 AM EDT Height 177.8 cm (5' 10 ) 10/04/2024 2:30 PM EST Body Mass Index 29.41 10/04/2024 2:30 PM EST Plan of Treatment Upcoming Encounters Date Type Department Care Team (Late st Contact Info) Description 12/14/2024 11:15 AM EDT Office Visit [facility] [address] [place] [address] Karlene Chamorro MD [address] [place] [address] 02/07/2025 11:00 AM EDT Office Visit [facility] [address] [place] [address] Nathalie Misti Health Maintenance Due Date Last Done Comments CT Colonography 1958 Colonoscopy 1958 Colorectal Cancer Screening 1958 Dental Prophylaxis 1958 FIT DNA/Cologuard 1958 FIT 1958 FOBT 1958 Sigmoidoscopy 1958 Eye Exam 1968 Alcohol/Substance Use Screening 1970 Diabetes: Urine Protein Screening 1977 Pneumococcal Vaccine: 50+ Years (1 of [...] 07/07/2024 07/07/2023 Diabetes: Hemoglobin A1C 10/26/2024 04/28/2024, 1109/2022 Dental Oral Exam 05/16/2025 11/13/2024 SDOH Screening 09/07/2025 09/07/2024 Tobacco Screening 11/13/2025 11/13/2024 Dental X-Ray: Bitewings 11/14/2025 11/13/2024 DTaP/Tdap/Td Vaccines (2 - Td or Tdap) 12/09/2026 12/09/2016 Dental X-Ray: Full Mouth 11/15/2027 11/13/2024 Hepatitis C Screening Completed 07/07/2023 HIB Vaccines [...] Procedure Name Priority Date/Time Associated Diagnosis Comments CASE PRESENTATION, DETAILED AND EXTENSIVE TREATMENT PLANNING Routine 11/13/2024 9:00 AM EDT Encounter for dental examination Dental calculus Periodontal disease Acute periodontal abscess INTRAORAL - COMPLETE SERIES OF RADIOGRAPHIC IMAGES Routine 11/13/2024 9:00 AM EDT Encounter for dental examination Dental calculus Periodontal disease Acute periodontal abscess COMPREHENSIVE ORAL EVALUATION - NEW OR ESTABLISHED PATIENT Routine 11/13/2024 9:00 AM EDT Encounter for dental examination Dental calculus Periodontal disease Acute periodontal abscess POCT GLYCATED HEMOGLOBIN, TOTAL Routine 04/28/2024 12:26 PM EDT Type 2 diabetes mellitus with hyperglycemia, with long-term current use of insulin ([facility]) HEPATITIS C AB W/REFL TO HCV RNA, QN, PCR Routine 07/07/2023 12:30 PM EST Opioid use disorder LIPID PANEL, STANDARD Routine 07/07/2023 12:30 PM EST Opioid use disorder from Last 3 Months or Most Recently Relevant to Health Maintenance Results * POCT HGB A1C (04/28/2024 12:26 PM EDT) Hemoglobin A1C 5.8 4.0 - 6.0 % QC Media Lot # [id number] Lot# Expiration Date [id number] Blood 04/28/2024 12:2 6 PM EDT Karlene Chamorro MD POINT OF CARE TEST ENTER /EDIT ORDERABLES Final Result * Hepatitis C Antibody with Reflex to HCV, RNA, Quantitative, Real-Time PCR (07/07/2023 12:30 PM EST) Hepatitis C Antibody Nonreactive Nonreactive [facility] Comment:Antibodies to HCV no t detected; does not exclude early acuteHCV infection. 07/07/2023 12:3 0 PM EST 07/07/2023 1:13 PM EST Karlene Chamorro MD LAB BLOOD ORDERABLES Fin al Result [facility] [address] [place] [phone] * (ABNORMAL) Lipid Panel, Standard (07/07/2023 12:30 PM EST) Triglycerides 49 <150 mg/dL [facility] Comment:Desirable Triglyceri de: less than 150 mg/dLBorderline High Triglyceride 150-199 mg/dLHigh Triglyceride: 200-499 mg/dLVery High Triglyceride: greater than or equal to 5OO mg/dL Cholesterol 160 <200 mg/dL [facility] Comment:Desirable Cholestero l: less than 200 mg/dLBorderline High Cholesterol: 200-239 mg/dLHigh Cholesterol: greater than 239 mg/dL LDL Cholesterol Calculated 101(H) <100 mg/dL [facility] Comment:Desirable LDL: less than 100 mg/dLNear Optimal/Above Optimal LDL: 110- 129 mg/dLBorderline High LDL: 130-159 mg/dLHigh LDL: 160-189 mg/dLVery High LDL: greater than or equal to 190 mg/dL HDL Cholesterol 50 >40 mg/dL [facility] Comment:Desirable HDL: great er than 40 mg/dL Note: This HDL assay may give artificially low results in patients with liver disease. 07/07/2023 12:3 0 PM EST 07/07/2023 1:13 PM EST Karlene Chamorro MD LAB BLOOD ORDERABLES Fin al Result [facility] [address] [place] [phone] from Last 3 Months or Most Recently Relevant to Health Maintenance Insurance [facility] Care Teams Police Officer Relationship Specialty Start Date End Date Karlene Chamorro MD [address] [place] [address] PCP - General Internal Medicine 04/03/23
--- OUTSIDE RECORDS SUMMARY | 2024-11-20 07:53 | XMS_ITS | Encounter Summary ---
Author Organization [employer] Address [address] [place] [address] 7t [place] [address] Care Team Providers Care Loss Prevention Research Engineer Name Role Phone Karlene Roldan MD Primary Care Provider + Reason for Visit * Reason Comments Med Refill Encounter Details Date Type Department Care Team (Late st Contact Info) Description 03/26/2023 Refill [facility] [address] [place], [place] [phone] Niels Sterling MD [address] [place], [place] [phone] Uncomplicated opioid dependence (CMS/HCC) Social History Tobacco [...] Encounters Date Type Department Care Team (Late Contact Info) Description 12/14/2024 11:15 AM EDT Office Visit [facility] [address] [place] [address] [phone] Karlene Roldan MD [address] [place] [address] 02/07/2025 11:00 AM EDT Office Visit [facility] [address] [place] [address] Misti Zelaya documented as of this encounter Visit Diagnoses Diagnosis Uncomplicated opioid dependence (CMS/HCC) documented in this encounter Additional Health Concerns Assessment Noted Time PHQ-9 Depression Total Score: 6 03/09/20 11:28 AM EDT documented as of this encounter Care Teams Loss Prevention Research Engineer Relationship Specialty Start Date End Date Karlene Roldan MD [address] [place] [address] PCP - General Internal Medicine 04/03/23 documented as of this encounter
--- OUTSIDE RECORDS SUMMARY | 2024-11-20 07:53 | XMS_ITS | Encounter Summary ---
Author Organization [employer] Address [address] [facility] 7t [place] [address] Care Team Providers Care Soils Technician Name Role Phone Karlene Roldan MD Primary Care Provider + Reason for Visit * Reason Onset Date Comments Med Refill 04/20/2024 Encounter Details Date Type Department Care Team ([facility] st Contact Info) Description 04/20/[address] [facility] [address] [place], [place] [phone] Karlene Roldan MD [address] [place] [address] Med Refill Social History Tobacco Use Types [...] 25 MG tablet To be sent to: [facility] - [place], [place] - [address] [place] [address] documented in this encounter Plan of Treatment Upcoming Encounters Date Type Department Care Team (Late st Contact Info) Description 12/14/2024 11:15 AM EDT Office Visit [facility] [address] [place] [address] Karlene Roldan MD [address] [place] [address] 02/07/2025 11:00 AM EDT Office Visit [facility] [address] [place] [address] Misti Zelaya documented as of this encounter Visit Diagnoses Not on filedocumented in this encounter Additional Health Concerns Assessment Noted Time PHQ-9 Depression Total Score: 6 03/09/20 23 11:28 AM EDT documented as of this encounter Care Teams Soils Technician Relationship Specialty Start Date End Date Karlene Roldan MD [address] [place] [phone] PCP - General Internal Medicine 04/03/23 documented as of this encounter
--- NOTE | 2024-11-20 08:10 | MHC.OFFVIS ---
Intake Visit Reasons: Followup Allergies No Known Allergies Allergy (Verified 11/20/24 08:10) HPI Comments Details: 11/20/24--Delvin is a 64-year-old male who is here for FU for complaints of urinary frequency both day and nighttime. He also states that sometimes he gets the urge and he will leak before getting to the bathroom. He has also noticed decrease in erections. LV-06/15/24--I discussed trial of daily Cialis for erectile dysfunction as well as trial of anticholinergic VESIcare 5 mg for overactive bladder symptoms. Afqmhjm-BMW-4/18/2024--0.31 Pt stated he had another appointment. Pt left without being seen. 06/15/24--Delvin is a 63-year-old male who is here with complaints of urinary frequency both day and nighttime. He also states that sometimes he gets the urge and he will leak before getting to the bathroom. He has also noticed decrease in erections. I have discussed trial of daily Cialis for erectile dysfunction as well as trial of anticholinergic VESIcare 5 mg for overactive bladder symptoms. 05/03/24--0.31 ng/mL Reviewed CTAP-11/08/23 [facility] Medical History Lower urinary tract symptoms Weight loss Centrilobular emphysema Tobacco dependence Varicose veins of both lower extremities with inflammation Callus of foot Arthralgia BPH w urinary obs/LUTS Tinea pedis of both feet Type 2 diabetes mellitus with hyperglycemia, with long-term current use of insulin Hammer toes of both feet Opioid use disorder Left foot pain Uncomplicated opioid dependence CAD (coronary artery disease) Diabetic acidosis, type II Surgical History History of heart artery stent Status post left hip replacement Social History Household Members: Spouse Housing: House Alcohol intake: never Patient Tobacco Use Status: Current everyday Tobacco user Cigarettes Per Day: 3 Current occupational status: disabled Office Procedures Post Void Residual Post Residual Void Post Void Residual (PVR): 0 [id number] Void Residual by ultrasound Results AMB Urinalysis, Automated UA Leukoctes 0 Vickey/uL Last Edit by Aida Hill CMA on 11/20/24 08:18 UA Nitrite Negative Last Edit by Aida Hill, PRODUCT DEVELOPMENT CONSULTANT on 11/20/24 08:18 UA Urobilinogen 0.2 mg/dL Last Edit by Aida Hill, PRODUCT DEVELOPMENT CONSULTANT on 11/20/24 08:18 UA Protein 15 mg/dL Last Edit by Aida Hill, PRODUCT DEVELOPMENT CONSULTANT on 11/20/24 08:18 UA pH 6.0 Last Edit by Aida Hill, PRODUCT DEVELOPMENT CONSULTANT on 11/20/24 08:18 UA Blood 0 Sami/uL Last Edit by Aida Hill, PRODUCT DEVELOPMENT CONSULTANT on 11/20/24 08:18 UA Specific Gilbert 1.025 Last Edit by Aida Hill, PRODUCT DEVELOPMENT CONSULTANT on 11/20/24 08:18 UA Ketone Negative Last Edit by Aida Hill, PRODUCT DEVELOPMENT CONSULTANT on 11/20/24 08:18 UA Bilirubin 0 mg/dL Last Edit by Aida Hill, PRODUCT DEVELOPMENT CONSULTANT on 11/20/24 08:18 UA Glucose 0 mg/dL Last Edit by Aida Hill, PRODUCT DEVELOPMENT CONSULTANT on 11/20/24 08:18 Results Reviewed Results Reviewed: Laboratory Last Values Urine pH (Auto) 6.0 11/20/24 08:16 Specific Gilbert (Auto) 1.025 11/20/24 08:16 Urine Protein (Auto) 15 mg/dL 11/20/24 08:16 Glucose (UA)(Auto) 0 mg/dL 11/20/24 08:16 Urine Ketones (Auto) Negative 11/20/24 08:16 Urine Blood (Auto) 0 Sami/uL 11/20/24 08:16 Urine Nitrite (Auto) Negative 11/20/24 08:16 Urine Bilirubin (Auto) 0 mg/dL 11/20/24 08:16 Urine Urobilinogen (Auto) 0.2 mg/dL 11/20/24 08:16 Leukocyte Esterase (Auto) 0 Vickey/uL 11/20/24 08:16 Assessment & Plan Assessment & Plan (1) Urinary frequency: Code(s): R35.0 - Frequency of micturition Category: Medical (2) Nocturia: Code(s): R35.1 - Nocturia Category: Medical (3) Erectile dysfunction: Code(s): N52.9 - Male erectile dysfunction, unspecified Category: Medical Plan Pt left without being seen Orders: Orders AMB Post Void Residual by ultrasound Today R35.0 - Frequency of micturition AMB Urinalysis Automated Today N52.9 - Male erectile dysfunction, unspecified Coding Level of Care Code Left Without Being Seen Diagnoses Urinary frequency R35.0 Nocturia R35.1 Erectile dysfunction N52.9 CPT Codes Post Residual Void - PVR CPT Code: 13762-[id number] Void Residual by ultrasound ([id number])
== END 2024-11-20 08:42 | disposition left against medical advice (07) ==
LOC: HO.HUSH 07:49
PROVIDERS: PCP Internal Medicine; Visit Provider Urology
DX: N52.9 Male erectile dysfunction, unspecified (principal)

== ENCOUNTER → 2024-11-20 07:48 | Outpatient (BNVA) | payer OTHER, SELFPAY | PROVIDERS: PCP Internal Medicine; Visit Provider Urology | DX: R35.0 Frequency of micturition (principal); R35.1 Nocturia; N52.9 Male erectile dysfunction, unspecified | CPT/HCPCS: 51798; 81003 ==

== ENCOUNTER 2024-12-11 09:46 | Outpatient (AMB) | payer OTHER, SELFPAY ==
--- NOTE | 2024-12-11 10:01 | MHC.OFFVIS ---
Intake Visit Reasons: follow up(r/s from 11/20) Intake Note: Patient is present for a follow up Urology Medication:NONE Antibiotic Allergy:NONE Blood Thinner:NONE PVR: 6ml Retirement Plan Specialist Required: No Allergies No Known Allergies Allergy (Verified 12/11/24 10:05) Medication List - Last Reconciled 12/11/24 by Penelope Rosario MD acetaminophen (Tylenol Extra Strength) 500 mg PO Q6H PRN amlodipine 10 mg PO DAILY lidocaine 5% 1 patch topical DAILY losartan 25 mg PO DAILY metoprolol succinate ER 25 mg PO DAILY mirabegron ER (Myrbetriq) 25 mg PO DAILY pregabalin 75 mg PO BID tadalafil (Cialis) 5 mg PO DAILY HPI Comments Details: 12/11/2024--Delvin is a 64-year-old male who is here for FU for complaints of urinary frequency both day and nighttime. He also states that sometimes he gets the urge and he will leak before getting to the bathroom. He has also noticed decrease in erections. LV-06/15/24--I discussed trial of daily Cialis for erectile dysfunction as well as trial of anticholinergic. VESIcare 5 mg for overactive bladder symptoms. Delvin states that the Cialis is working well and requests a 90 day supply. He states he took the VESIcare for a week but had to stop because of severe dry mouth. The patient states he needs to wear depends daily due to the urinary incontinence. Will send Myrbetriq 25 mg to take daily which does not cause dry mouth. We will follow-up in 30 days to review urinary symptoms on the Myrbetriq. We will continue PSA screening. Zjejdco-AGO-6/18/2024--0.31 06/15/24--Delvin is a 63-year-old male who is here with complaints of urinary frequency both day and nighttime. He also states that sometimes he gets the urge and he will leak before getting to the bathroom. He has also noticed decrease in erections. I have discussed trial of daily Cialis for erectile dysfunction as well as trial of anticholinergic VESIcare 5 mg for overactive bladder symptoms. 05/03/24--0.31 ng/mL Reviewed CTAP-11/08/23 [facility] Medical History Lower urinary tract symptoms Weight loss Centrilobular emphysema Tobacco dependence Varicose veins of both lower extremities with inflammation Callus of foot Arthralgia BPH w urinary obs/LUTS Tinea pedis of both feet Type 2 diabetes mellitus with hyperglycemia, with long-term current use of insulin Hammer toes of both feet Opioid use disorder Left foot pain Uncomplicated opioid dependence CAD (coronary artery disease) Diabetic acidosis, type II Surgical History History of heart artery stent Status post left hip replacement Social History Household Members: Spouse Housing: House Alcohol intake: never Patient Tobacco Use Status: Current everyday Tobacco user Cigarettes Per Day: 3 Current occupational status: disabled Review of Systems Const All systems reviewed & are unremarkable except as noted in HPI and below Reports no additional complaints Eyes Reports no additional complaints ENT Reports no additional complaints Card Reports no additional complaints Resp Reports no additional complaints GI Reports no additional complaints Reports as per HPI Musc Reports no additional complaints Skin/Breast Reports system reviewed and no additional complaints, except as documented Neuro Reports no additional complaints Psych Reports no additional complaints Endo Reports no additional complaints Anam/Lymph Reports no additional complaints Aller/Immun Reports no additional complaints Assessment & Plan Assessment & Plan (1) Urinary frequency: Code(s): R35.0 - Frequency of micturition Category: Medical (2) Nocturia: Code(s): R35.1 - Nocturia Category: Medical (3) Erectile dysfunction: Code(s): N52.9 - Male erectile dysfunction, unspecified Category: Medical (4) Urinary incontinence: Code(s): R32 - Unspecified urinary incontinence Category: Medical Plan Delvin states that the Franceslis is working well and requests a 90 day supply. He states he took the VESIcare for a week but had to stop because of severe dry mouth. The patient states he needs to wear depends daily due to the urinary incontinence. Will send Myrbetriq 25 mg to take daily which does not cause dry mouth. We will follow-up in 30 days to review urinary symptoms on the Myrbetriq. We will continue PSA screening. Orders: Orders AMB Urinalysis Automated Today Z13.9 - Encounter for screening, unspecified Medications: New mirabegron ER (Myrbetriq) 25 mg PO DAILY 30 tabs 2RF Changed From tadalafil (Cialis) USE COUPON ATTACHED [id number] [facility] [place] [id number] Member [id number] 5 mg PO DAILY 30 tabs 1RF To tadalafil (Cialis) USE COUPON ATTACHED [id number] [facility] [place] [id number] Member [id number] 5 mg PO DAILY 90 tabs 2RF Patient Instructions: The patient had an opportunity to ask questions regarding treatment plan. The patient expressed understanding and agreement with the above treatment plan. The patient is aware they should contact our office by phone for worsening of their current condition or the appearance of new symptoms. Compliance is encouraged with any medications and followup testing that is ordered. It is a privilege to be allowed the opportunity to participate in the urologic care of your patient. If you have any questions or concerns regarding treatment for the above conditions please do not hesitate to contact me. The office telephone contact is [phone]. This note is constructed in part using voice recognition software. While every effort has been made to ensure accuracy shoe packer errors may have been included. Yours sincerely, Penelope Rosario MD Coding Level of Care Code Est Pt Level 4 (81699) Complex EM visit Add On G2211 Diagnoses Urinary frequency R35.0 Nocturia R35.1 Erectile dysfunction N52.9 Urinary incontinence R32
--- OUTSIDE RECORDS SUMMARY | 2024-12-11 11:05 | XMS_ITS | Encounter Summary ---
Author Organization [employer] Address [address] [place] [address] Care Team Providers Care Medical Educator Name Role Phone Karlene Roldan MD Primary Care Provider + Reason for Visit * Reason Comments Med Refill Encounter Details Date Type Department Care Team ([facility] st Contact Info) Description 05/28/2023 Refill [facility] [address] [place], [place] [phone] Karlene Roldan MD [address] [place], [place] [phone] Lumbar radiculopathy Social History Tobacco Use Types [...] Description 12/14/2024 11:15 AM EDT Office Visit [facility] [address] [place] [address] Karlene Roldan MD [address] [place] [phone] 02/07/2025 11:00 AM EDT Office Visit [facility] [address] [place] [phone] Misti Zelaya documented as of this encounter Visit Diagnoses Diagnosis Lumbar radiculopathy Thoracic or lumbosacral neuritis or radiculitis, unspecified documented in this encounter Additional Health Concerns Assessment Noted Time PHQ-9 Depression Total Score: 6 03/09/20 23 11:28 AM EDT documented as of this encounter Care Teams Medical Educator Relationship Specialty Start Date End Date Karlene Roldan MD [address] [place] [phone] PCP - General Internal Medicine 04/03/23 documented as of this encounter
--- OUTSIDE RECORDS SUMMARY | 2024-12-11 11:05 | XMS_ITS | Encounter Summary ---
Author Organization [employer] Address [address] [place] [address] Care Team Providers Care Technical Associate Name Role Phone Karlene Roldan MD Primary Care Provider + Encounter Details Date Type Department Care Team ([facility] st Contact Info) Description 10/26/2023 Telephone [facility] [address] [place], [place] [phone] Karlene Roldan MD [address] [place], [place] [phone] Social History Tobacco Use Types Packs/Day Years [...] Description 12/14/2024 11:15 AM EDT Office Visit [facility] [address] [place] [phone] Karlene Roldan MD [address] [place] [phone] 02/07/2025 11:00 AM EDT Office Visit [facility] [address] [place] [address] Misti Zelaya documented as of this encounter Visit Diagnoses Not on filedocumented in this encounter Additional Health Concerns Assessment Noted Time PHQ-9 Depression Total Score: 6 03/09/20 11:28 AM EDT documented as of this encounter Care Teams Technical Associate Relationship Specialty Start Date End Date Karlene Roldan MD [address] [place] [address] PCP - General Internal Medicine 04/03/23 documented as of this encounter
--- OUTSIDE RECORDS SUMMARY | 2024-12-11 11:05 | XMS_ITS | Clinical Summary ---
Author Organization [employer] Address [address] [facility] 7t [place] [address] Care Team Providers Care Iv Rn Name Role Phone Karlene Chamorro MD Primary [...] chew, or split. 30 tablet 6 024 Active nicotine (Nicoderm CQ) 7 MG/24HR patchIndications: Tobacco use disorder Apply one or 2 patches daily as instructed. 30 patch 024 Active nicotine polacrilex (Commit) 2 MG lozengeIndication s:Tobacco use disorder DISSOLVE 1 LOZENGE BY MOUTH EVERY 2 TO 4 HOURS NEEDED instead OF cigarette 72 lozenge 2 024 Active chlorhexidine (Peridex) 0.12 % solution SWISH 15 ML BY MOUTH FOR 30 SECONDS THEN SPIT OUT TWICE DAILY. DO NOT RINSE 473 mL 024 Active amLODIPine (Norvasc) 10 MG tabletIndications :Essential (primary) hypertension TAKE 1 TABLET BY MOUTH EVERY DAY 90 tablet 11 024 Active Aspirin Low Dose 81 MG chewable tabletIndications :Atherosclerotic heart disease of [place] coronary artery without angina pectoris CHEW 1 TABLET BY MOUTH EVERY DAY 30 tablet 11 024 Active pregabalin (Lyrica) 150 MG capsuleIndication s:Chronic bilateral low back pain without sciatica TAKE 1 CAPSULE BY MOUTH THREE TIMES DAILY 120 capsule 025 Active naproxen (Naprosyn) 500 MG tabletIndications :Osteoarthritis of right knee, unspecified osteoarthritis type Take 1 tablet (500 mg) by mouth 2 times daily. 60 tablet 2 025 2024 Active losartan (Cozaar) 25 MG tabletIndications :Type 2 diabetes mellitus without complications (CMS/HCC) TAKE 1 TABLET BY MOUTH EVERY DAY 90 tablet 025 Active atorvastatin (Lipitor) 20 MG tablet Take 1 tablet by mouth Once per day. 025 Active amoxicillin (Amoxil) 500 MG capsule Take 4 capsules of amoxicillin 500 mg 1 hour prior dental procedure 12 capsule 025 Active famotidine (Pepcid) 20 MG tabletIndications :Dyspepsia TAKE 1 TABLET BY MOUTH TWICE DAILY 60 tablet 025 Active famotidine (Pepcid) 20 MG tabletIndications :Dyspepsia TAKE 1 TABLET BY MOUTH TWICE DAILY 60 tablet 025 2024 Discontinued(R eorder (will not trigger notification to Pharmacy)) neomycin-polymyxi n-dexAMETHasone (Maxitrol) 0.1 % ophthalmic suspension Administer 1 drop into the right eye 4 times daily for 10 days. 5 mL 1 025 2024 amoxicillin (Amoxil) 500 MG capsule Take 1 capsule (500 mg) by mouth every 8 (eight) hours for 7 days. 21 capsule 025 2024 chlorhexidine (Peridex) 0.12 % solution Use 15 mL in the mouth or throat if needed (for mouthwash 15 ml for 30 seconds, swish and spit) for up to 14 days. 473 mL 025 2024 Active Problems Problem Noted Date [...] apnea) 11/25/2023 Overview (11/25/2023): [facility] study at [facility] ([facility]) showed AHI 26 Epigastric pain 10/21/2023 Assessment & Plan (11/25/2023 3:25 PM EDT): Due to hx smoking + weight loss, I will refer to GI ([facility]). Counseled to quit smoking Advised to monitor fgtsk prn hypoglycemic sxs. FU in 2-3m, consider laron Abrams if GI w/u is NEG, recent CT scan abd is not showing source of pain. Assessment & Plan (10/21/2023 3:33 PM EST): Seems to be related to dyspepsia? I would like to hold Richard x 1mo , but patient declines to [...] found on CT scan in 2020 from [facility], probably at the time of ACS. Pt [...] unclear if he'll continue to FU with [facility] endocrinology PA. I will rx Trulicity if [...] suboxone x 3 doses only sent to [facility] pharmacy in [place] as he missed regular pharmacy potato picker yesterday and it is closed for the weekend, he has mild withdrawal sxs. Patient will potato picker remaining dose on Wednesday, will contact his [...] hypertension 09/23/2021 Coronary artery disease invo lving [place] coronary artery of [place] heart without angina pectoris 09/23/2021 Obstructive sleep apnea 09/01/2021 Overview (11/13/2024): [facility] Home sleep test 08/28/2021; weight [...] (04/03/2023): Sp STEMI and PCI/stent to RCA ([facility]). ECG with LVH + EF 75% -Metoprolol [...] outside hospital 07/13/2021 per previous records in [facility]. Continue current meds: -Metoprolol tartrate 12.5 mg twice daily -Losartan 25 mg daily -Atorvastatin 80 mg daily -Aspirin 81 mg daily -Counseled to quit smoking. -Will fu with cardiology Pneumonia due to COVID-19 virus 07/24/2021 Lumbar radiculopathy 09/07/2019 Overview (11/25/2023): Had PT, epidural injections in the past. Last Assessment & Plan: According to discharge paperwork from [facility], he was discharged on methocarbamol, which [...] w me in 1m Obtain records form [facility] pain clinic/neurology Status post left hip replacement [...] Encounters Date Type Department Care Team Description 12/08/2024 Telephone [facility] [address] [place] [address] Karlene Chamorro MD Chart prep 12/07/[address] [facility] [address] [place] [address] Karlene Chamorro MD Pre-visit Planning (SDOH was already completed) 12/06/[address] [facility] [address] [place], [place] [phone] Karlene Chamorro MD Dyspepsia 11/13/2024 9:00 AM EDT Office Visit [facility] ADULT DENTAL [address] [place] [address] Dori Ching DDS Encounter for dental examination (Primary Dx); Dental calculus; Periodontal disease; Acute periodontal abscess 11/02/2024 10:40 AM EDT Office Visit [facility] W[facility] [address] [place] [phone] Mckenzie Adan MD Acute bacterial conjunctivitis of right eye (Primary Dx) 10/31/2024 Refill [facility]S [address] [place], [place] [phone] Karlene Chamorro MD Type 2 diabetes mellitus without complications ([facility]); Dyspepsia 10/04/2024 3:30 PM EST Office Visit [facility] [address] [place] [address] Maksim Gabriel CNP Osteoarthritis of right knee, unspecified osteoarthritis type (Primary Dx) 09/20/2024 Telephone [facility] [address] [place] [phone] Karlene Chamorro MD 09/19/[address] [phone] Karlene Chamorro MD Chart prep 09/16/2024 Refill [facility] [address] [place], [place] [phone] Maria Del Rosario Haddad NP Chronic bilateral low back pain without sciatica 09/14/2024 Telephone [facility] [address] [place] [phone] Karlene Chamorro MD from Last 3 Months Immunizations Name Administration [...] Description 12/14/2024 11:15 AM EDT Office Visit [facility] [address] [place] [address] Karlene Chamorro MD [address] [place] [address] 02/07/2025 11:00 AM EDT Office Visit [facility] ADULT DENTAL [address] [place] [address] Misti Zelaya Health Maintenance Due Date Last Done Comments [...] Lipid Panel 07/07/2024 07/07/2023 Diabetes: Hemoglobin A1C 11/06/202405/09/2 024, 04/28/2024, 07/07/2023 Dental Oral Exam 05/16/2025 11/13/2024 SDOH Screening [...] hyperglycemia, with long-term current use of insulin ([facility]) HEPATITIS C AB W/REFL TO HCV RNA, QN, PCR Routine 07/07/2023 12:30 PM EST Opioid use disorder LIPID PANEL, STANDARD Routine 07/07/2023 12:30 PM EST Opioid use disorder from Last 3 Months or Most Recently Relevant to Health Maintenance Results * POCT HGB A1C (04/28/2024 12:26 PM EDT) Hemoglobin A1C 5.8 4.0 - 6.0 % QC Media Lot # [id number] Lot# Expiration Date [id number] Blood 04/28/2024 12:2 6 PM EDT Karlene Chamorro MD POINT OF CARE TEST ENTER /EDIT ORDERABLES Final Result * Hepatitis C Antibody with Reflex to HCV, RNA, Quantitative, Real-Time PCR (07/07/2023 12:30 PM EST) Hepatitis C Antibody Nonreactive Nonreactive [facility] Comment:Antibodies to HCV no t detected; does not exclude early acuteHCV infection. 07/07/2023 12:3 0 PM EST 07/07/2023 1:13 PM EST us Karlene Chamorro MD LAB BLOOD ORDERABLES Fin al Result [facility] [address] [place] [phone] * (ABNORMAL) Lipid Panel, Standard (07/07/2023 12:30 PM EST) Triglycerides 49 <150 mg/dL [facility] Comment:Desirable Triglyceri de: less than 150 mg/dLBorderline High Triglyceride 150-199 mg/dLHigh Triglyceride: 200-499 mg/dLVery High Triglyceride: greater than or equal to 5OO mg/dL Cholesterol 160 <200 mg/dL [facility] Comment:Desirable Cholestero l: less than 200 mg/dLBorderline High Cholesterol: 200-239 mg/dLHigh Cholesterol: greater than 239 mg/dL LDL Cholesterol Calculated 101(H) <100 mg/dL [facility] Comment:Desirable LDL: less than 100 mg/dLNear Optimal/Above Optimal LDL: 110- 129 mg/dLBorderline High LDL: 130-159 mg/dLHigh LDL: 160-189 mg/dLVery High LDL: greater than or equal to 190 mg/dL HDL Cholesterol 50 >40 mg/dL [facility] Comment:Desirable HDL: great er than 40 mg/dL Note: This HDL assay may give artificially low results in patients with liver disease. 07/07/2023 12:3 0 PM EST 07/07/2023 1:13 PM EST us Karlene Chamorro MD LAB BLOOD ORDERABLES Fin al Result [facility] [address] [place] [phone] from Last 3 Months or Most Recently Relevant to Health Maintenance Insurance [facility] < [address] [place] [id number] DENTAL [facility] Care Teams Iv Rn Relationship Specialty Start Date End Date Karlnee Chamorro MD [address] [place] [address] PCP - General Internal Medicine 04/03/23
--- OUTSIDE RECORDS SUMMARY | 2024-12-11 11:05 | XMS_ITS | Encounter Summary ---
Author Organization [employer] Address [address] [facility] 7t [place] [address] Care Team Providers Care Strategies Analyst Name Role Phone Karlene Roldan MD Primary Care Provider + Reason for Visit * Reason Onset Date Comments Med Refill 04/20/2024 Encounter Details Date Type Department Care Team ([facility] st Contact Info) Description 04/20/2024 Telephone [facility] [address] [place], [place] [phone] Karlene Roldan MD [address] [place] [address] Med Refill Social History Tobacco Use Types [...] 25 MG tablet To be sent to: [facility] - [place], [place] - [address] [place] [address] documented in this encounter Plan of Treatment Upcoming Encounters Date Type Department Care Team (Late st Contact Info) Description 12/14/2024 11:15 AM EDT Office Visit [facility] [address] [place] [address] Karlene Roldan MD [address] [place] [address] 02/07/2025 11:00 AM EDT Office Visit [facility] [address] [place] [address] Misti Zelaya documented as of this encounter Visit Diagnoses Not on filedocumented in this encounter Additional Health Concerns Assessment Noted Time PHQ-9 Depression Total Score: 6 03/09/20 23 11:28 AM EDT documented as of this encounter Care Teams Strategies Analyst Relationship Specialty Start Date End Date Karlene Roldan MD [address] [place] [phone] PCP - General Internal Medicine 04/03/23 documented as of this encounter
--- OUTSIDE RECORDS SUMMARY | 2024-12-11 11:05 | XMS_ITS | Encounter Summary ---
Author Organization [employer] Address [address] [place] [address] 7t [place] [address] Care Team Providers Care Aws Solution Architect Name Role Phone Karlene Roldan MD Primary Care Provider + Reason for Visit * Reason Comments Med Refill Encounter Details Date Type Department Care Team (Late st Contact Info) Description 03/26/2023 Refill [facility] [address] [place], [place] [phone] Niels Sterling MD [address] [place], [place] [phone] Uncomplicated opioid dependence (CMS/HCC) Social History Tobacco [...] 12/14/2024 11:15 AM EDT Office Visit [facility] [address] [place] [phone] Karlene Roldan MD [address] [place] [address] 02/07/2025 11:00 AM EDT Office Visit [facility] ADULT DENTAL [address] [place] [address] Misti Zelaya documented as of this encounter Visit Diagnoses Diagnosis Uncomplicated opioid dependence (CMS/HCC) documented in this encounter Additional Health Concerns Assessment Noted Time PHQ-9 Depression Total Score: 6 03/09/20 11:28 AM EDT documented as of this encounter Care Teams Aws Solution Architect Relationship Specialty Start Date End Date Karlene Roldan MD [address] [place] [address] PCP - General Internal Medicine 04/03/23 documented as of this encounter
--- OUTSIDE RECORDS SUMMARY | 2024-12-11 11:05 | XMS_ITS | Clinical Summary ---
Author Organization [facility] Address [address] [place] [address] Care Team Providers Care Fiberglass Tube Molder Name Role Phone Lala Mao Primary Care [...] age to complete this topic Care Teams Fiberglass Tube Molder Relationship Specialty Start Date End Date Lala Mao [address] [place] [address] PCP - General Internal Medicine 11/04/18
--- OUTSIDE RECORDS SUMMARY | 2024-12-11 11:05 | XMS_ITS | Clinical Summary ---
Author Organization [facility] Address [address] [place] [address] Phone Care Team Providers Care Glass Robot Operator Name Role Phone Karlene Roldan MD [...] Eczema 04/08/2022 Coronary artery disease invo lving [place] coronary artery of [place] heart without angina pectoris 09/23/2021 Nonsustained ventricular tac hycardia ([facility] V24, [facility] V28) 09/23/2021 Primary hypertension 09/23/2021 Obstructive sleep apnea 09/01/2021 Overview (06/05/2024): [facility] Home sleep test 08/28/2021; weight 219; BMI 31; AHI 26, AI 15, AHI 12. 10 unclassified apneas, 80 obstructive apneas, 2 central apneas and 74 hypopneas. Overall oxygen saturation 90%; oxygen vanessa 73%. Obstructive sleep apnea-moderate with mostly obstructive apneas and hypopneas; with nocturnal hypoxemia based on 2021 home sleep test. Hypertrophic cardiomyopathy ([facility] V[facility], [facility] V[facility]) 08/13/2021 Paroxysmal atrial fibrillation ([facility] V24, [facility] V28) 08/13/2021 Pneumonia due to COVID-19 virus 08/13/2021 STEMI involving right key ry artery ([facility] V24, [facility] V28) 08/13/2021 Type 2 diabetes mellitus wit hout complication, without long-term current use of insulin ([facility] V24, [facility] V28) 08/13/2021 Aortic atherosclerosis ([facility] V24) 03/22/2019 Osteoarthritis 03/22/2019 Overview (06/05/2024): Thoracic, & [...] AM EDT Office Visit [facility] [place] [address] [phone] Sergio Barry DPM Metatarsalgia of left foot (Primary Dx); Contracture of joint of left foot; Hammer toe of left foot; Dermatophytosis of nail; Verruca plantaris; Diabetic mononeuropathy simplex (CMS/HCC V24, CMS/HCC V28); Pain in toe of right foot; Acquired hallux valgus of right foot; Pain in toe of left foot; Arthritis of left ankle; Acquired hallux valgus of left foot; Metatarsalgia of both feet 09/18/2024 Telephone Orthopedic Surgery [facility] [phone] [phone] Sergio Barry DPM postpone surgery from Last 3 Months Immunizations Name Administration [...] <100SQCM; COM[facility] PROCEDURE: HISTORICAL COLONOSCOPY; COMMENT: Colon [...] & Lumbar Spine, Hips, Knees Aortic atherosclerosis (CMS/HCC V24) 03/22/2019 DX:Aortic atherosclerosis (HCC) Left carpal tunnel syndrome 09/07/2017 DX:L eft carpal tunnel syndrome Paroxysmal atrial fibrillati on (CMS/HCC V24, CMS/HCC V28) DX:Paroxysmal atrial fibril lation (HCC); COMMENT: one burst of A. fib [...] AM EDT Office Visit [facility] [place] [address] [phone] Sergio Barry, DPM [address] [address] Health Maintenance Due Date Last Done Comments [...] 03/09/2024 03/09/2023 COVID-19 Vaccine ( season) 2024 08/06/2022, 01/29/2022, 09/05/2021 Diabetes: Blood Sugar Control [...] age to complete this topic Meningococcal B Vaccine Aged Out No l onger eligible based on patient's age to complete this topic RSV Immunization Patients Under 20 months Aged Out No longer eligible based on patient's age to complete this topic Varicella Vaccines Aged Out No longer eligible based on patient's age to complete this topic Procedures Procedure Name Priority Date/Time Associated Diagnosis Comments ANNUAL BMP BLOOD TEST Routine 05/09/2024 HEMOGLOBIN A1C Routine 05/09/2024 LIPID PANEL Routine 05/09/2024 URINE ALBUMIN CREATININE RATIO Routine 01/04/2023 HEPATITIS C SCREENING Routine 03/03/2017 COLONOSCOPY Routine 12/07/2016 from Last 3 Months or Most Recently Relevant to Health Maintenance Results * Annual BMP Blood Test (05/09/2024) [facility] Annual BMP Blood Test Abstracted Result [facility] Provider HEALTH MAINTENANCE Final Result * Hemoglobin A1c (05/09/2024) [facility] Hemoglobin A1C 5.9 <=6.5 % Blood Venous blood specimen / Unknown Result [facility] Provider LAB BLOOD ORDERABLES Darlyn l Result * Lipid panel (05/09/2024) [facility] LDL/HDL Ratio 2 0 - 4 Triglycerides 40 0 - 150 mg/dL Cholesterol 144 0 - 200 mg/dL HDL 60 >=40 mg/dL LDL Cholesterol 76 0 - 100 mg/dL Blood Venous blood specimen / Unknown Result [facility] Provider LAB BLOOD ORDERABLES Darlyn l Result * Urine Albumin Creatinine Ratio (01/04/2023) [facility] Urine Albumin Creatinine Ratio Abstracted Result [facility] Provider HEALTH MAINTENANCE Final Result * Hepatitis C Screening (03/03/2017) [facility] Hepatitis C Screening Abstracted Result [facility] Provider HEALTH MAINTENANCE Final Result * Colonoscopy (12/07/2016) [facility] Colonoscopy No interpretation with ,abstracted Anatomical Region Laterality Modality Other Result [facility] Provider HEALTH MAINTENANCE Final Result from Last 3 Months or Most Recently Relevant to Health Maintenance Insurance [facility] MEDIC[facility] Member Subscriber Plan / Payer (Ef fective 2017-Present) Name:Delvin Michelle Relation to Subscriber:Self Name:Delvin Michelle Payer ID:[id number] Group ID:[id number] Type:Not on file Address: [facility] [address] [id number] Advance Directives Documents on File Type Date Recorded Patient Director Biologics Expl anation Health Care Decision (hx) 11/24/2017 [...] (hx) 11/24/2017 AD MIRANDA DIRECTIVE Care Teams Glass Robot Operator Relationship Specialty Start Date End Date Karlene Roldan MD [address] [place] [phone] PCP - General 05/07/23
--- OUTSIDE RECORDS SUMMARY | 2024-12-11 11:05 | XMS_ITS | Encounter Summary ---
Author Organization [employer] Address [address] [facility] [address] 7t [place] [address] Care Team Providers Care Press Tender Smoke Signal Name Role Phone Karlene Roldan MD Primary Care Provider + Reason for Visit * Reason Comments Med Refill Encounter Details Date Type Department Care Team ([facility] st Contact Info) Description 07/02/2024 Refill [facility] ADULT [facility]ENT[facility] [address] [place], [place] [phone] Fernanda Evangelista BDS Social History Tobacco Use [...] 12/14/2024 11:15 AM EDT Office Visit [facility] [address] [place] [address] Karlene Roldan MD [address] [place] [address] 02/07/2025 11:00 AM EDT Office Visit [facility] ADULT DENT[facility] [address] [place] [address] Misti Zelaya documented as of this encounter Visit Diagnoses Not on filedocumented in this encounter Additional Health Concerns Assessment Noted Time PHQ-9 Depression Total Score: 6 03/09/20 11:28 AM EDT documented as of this encounter Care Teams Press Tender Smoke Signal Relationship Specialty Start Date End Date Karlene Roldan MD [address] [place] [address] PCP - General Internal Medicine 04/03/23 documented as of this encounter
--- OUTSIDE RECORDS SUMMARY | 2024-12-11 11:06 | XMS_ITS | Encounter Summary ---
Author Organization [employer] Address [address] [facility] 7t [place] [address] Care Team Providers Care Lead Software Architect Name Role Phone Karlene Roldan MD Primary Care Provider + Reason for Visit * Reason Onset Date Comments Chart prep 12/08/2024 Encounter Details Date Type Department Care Team ([facility] st Contact Info) Description 12/08/2024 Telephone [facility] [address] [place], [place] [phone] Karlene Roldan MD [address] [place] [address] Chart prep Social History Tobacco Use Types Packs/Day Years Used Date Smoking Tobacco: Some Days Cigarettes Last attempted to quit: 10/01/2023 Passive Smoke Exposure: Current Smokeless Tobacco: Never Alcohol Use Standard Drinks/Week [...] Telephone Encounter - Berkley Kang [place] - 12/08/2024 3:03 PM EDT Chart Prep Labs: done Images: done Referrals: appointment pending Vaccines due: Zoster Screenings: colonoscopy, eye exam, and foot exam Overdue care gaps: A1c and Glucose documented in this encounter Plan of Treatment Upcoming Encounters Date Type Department Care Team (Late st Contact Info) Description 12/14/2024 11:15 AM EDT Office Visit [facility] [address] [place] [phone] Karlene Roldan MD [address] [place] [phone] 02/07/2025 11:00 AM EDT Office Visit [facility] ADULT DENTAL [address] [place] [phone] Misti Zelaya documented as of this encounter Visit Diagnoses Not on filedocumented in this encounter Additional Health Concerns Assessment Noted Time PHQ-9 Depression Total Score: 6 03/09/20 11:28 AM EDT documented as of this encounter Care Teams Lead Software Architect Relationship Specialty Start Date End Date Karlene Roldan MD [address] [place] [address] PCP - General Internal Medicine 04/03/23 documented as of this encounter
--- OUTSIDE RECORDS SUMMARY | 2024-12-11 11:06 | XMS_ITS | Encounter Summary ---
Author Organization [employer] Address [address] [place] [address] Care Team Providers Care Ethylbenzene Converter Operator Name Role Phone Karlene Roldan MD Primary Care Provider + Reason for Visit * Reason Onset Date Comments Med Refill 12/06/2024 Encounter Details Date Type Department Care Team (Late st Contact Info) Description 12/06/2024 Refill [facility] CHC MED & PEDS [address] [place], [place] [phone] Karlene Roldan MD [address] [place] [address] Dyspepsia Social History Tobacco Use Types Packs/Day [...] encounter Miscellaneous Notes * Telephone Encounter - Janie Foreman LPN - 12/06/2024 8:48 AM EDT Next appointment 5.1.25 documented in this encounter Plan of Treatment Upcoming Encounters Date Type Department Care Team (Late st Contact Info) Description 12/14/2024 11:15 AM EDT Office Visit [facility] MEDICINE [address] [place] [address] Karlene Roldan MD [address] [place] [address] 02/07/2025 11:00 AM EDT Office Visit [facility] ADULT DENTAL [address] [place] [address] Misti Zelaya documented as of this encounter Visit Diagnoses Diagnosis Dyspepsia Dyspepsia and other specified disorders of function of stomach documented in this encounter Additional Health Concerns Assessment Noted Time PHQ-9 Depression Total Score: 6 03/09/20 11:28 AM EDT documented as of this encounter Care Teams Ethylbenzene Converter Operator Relationship Specialty Start Date End Date Karlene Roldan MD [address] [place] [address] PCP - General Internal Medicine 04/03/23 documented as of this encounter
--- OUTSIDE RECORDS SUMMARY | 2024-12-11 11:06 | XMS_ITS | Encounter Summary ---
Author Organization [employer] Address [address] [place] [address] Care Team Providers Care Magnetic Healer Name Role Phone Karlene Roldan MD Primary Care Provider + Reason for Visit * Reason Comments Pre-visit Planning SDOH was already com pleted Encounter Details Date Type Department Care Team (Late st Contact Info) Description 12/07/2024 Patient Outreach [facility] MED & PEDS [address] [place], [place] [phone] Karlene Roldan MD [address] [place] [address] Pre-visit Planning (SDOH was already completed) Social History Tobacco Use Types Packs/Day Years [...] as of this encounter Progress Notes * Holly Torres - 12/07/2024 11:51 AM EDT CC Holly Turcios placed successful outbound call to patient for pre-visit planning. Patient name and confirmed. Patient confirms appt date and time, and has transportation arrangements. Biggest concern for appointment at this time is patient states he's continuously falling. Patient would like more BASKET TURNER hours due to needing more help performing daily tasks. Appropriate screenings completed in anticipation of appointment. documented in this encounter Plan of Treatment Upcoming Encounters Date Type Department Care Team (Late st Contact Info) Description 12/14/2024 11:15 AM EDT Office Visit [facility] MEDICINE [address] [place] [address] Karlene Roldan MD [address] [place] [address] 02/07/2025 11:00 AM EDT Office Visit [facility] ADULT DENTAL [address] [place] [address] Misti Zelaya documented as of this encounter Visit Diagnoses Not on filedocumented in this encounter Additional Health Concerns Assessment Noted Time PHQ-9 Depression Total Score: 6 03/09/20 23 11:28 AM EDT documented as of this encounter Care Teams Magnetic Healer Relationship Specialty Start Date End Date Karlene Roldan MD [address] [place] [address] PCP - General Internal Medicine 04/03/23 documented as of this encounter
== END 2024-12-11 11:33 | disposition home or self-care (01) ==
LOC: HO.HUSH 09:47
PROVIDERS: PCP Internal Medicine; Visit Provider Urology
DX: R35.0 Frequency of micturition (principal); R35.1 Nocturia; N52.9 Male erectile dysfunction, unspecified; R32 Unspecified urinary incontinence
CPT/HCPCS: 99214; G2211

== ENCOUNTER → 2024-12-11 09:46 | Outpatient (BNVA) | payer OTHER, SELFPAY | PROVIDERS: PCP Internal Medicine; Visit Provider Urology | DX: R35.0 Frequency of micturition (principal); R35.1 Nocturia; R32 Unspecified urinary incontinence; N52.9 Male erectile dysfunction, unspecified | CPT/HCPCS: 99212 ==

== ENCOUNTER 2025-03-01 08:28 | Outpatient (AMB) | payer OTHER, SELFPAY ==
--- NOTE | 2025-02-28 21:55 | A.OFFVIS_ITS ---
Intake Visit Reasons: 1m/med review Intake Note: Patient is present for a 1m follow up/med review Urology Medication:NONE Antibiotic Allergy:NONE Blood Thinner:NONE PVR: 0ml Audio Visual Secretary Required: No Allergies No Known Allergies Allergy (Verified 03/01/25 08:39) HPI Comments Details: 03/01/25--FU OAB symptoms. LV 12/11/24 started on Myrbetriq to replace vesicare for OAB, on Cialis for ED. History of Present Illness - The patient is a 64-year-old male presenting with frequent urination and nocturia and ED. - States daily cialis is working well. - Reports frequent urination, especially nocturia, with 23 episodes in one night. - Currently on Mirabegron 25 mg, which has reduced urge incontinence during the day but not nocturia. - Consumes approximately 200 ounces of fluid daily, potentially exacerbating symptoms. - States he has a 20 ounce bottle that he fill >10 times during the day with water - Plan---- Continue Mirabegron 25 mg for urinary urgency management. - Reduce fluid intake to 64 ounces daily to address nocturia and polyuria. - Maintain Tadalafil therapy as it is effective and may support bladder function. 12/11/2024--Delvin is a 64-year-old male who is here for FU for complaints of urinary frequency both day and nighttime. He also states that sometimes he gets the urge and he will leak before getting to the bathroom. He has also noticed decrease in erections. LV-06/15/24--I discussed trial of daily Cialis for erectile dysfunction as well as trial of anticholinergic. VESIcare 5 mg for overactive bladder symptoms. Delvin states that the Cialis is working well and requests a 90 day supply. He states he took the VESIcare for a week but had to stop because of severe dry mouth. The patient states he needs to wear depends daily due to the urinary incontinence. Will send Myrbetriq 25 mg to take daily which does not cause dry mouth. We will follow-up in 30 days to review urinary symptoms on the Myrbetriq. We will continue PSA screening. Opsbeke-QTO-5/18/2024--0.31 06/15/24--Delvin is a 63-year-old male who is here with complaints of urinary frequency both day and nighttime. He also states that sometimes he gets the urge and he will leak before getting to the bathroom. He has also noticed decrease in erections. I have discussed trial of daily Cialis for erectile dysfunction as well as trial of anticholinergic VESIcare 5 mg for overactive bladder symptoms. 05/03/24--0.31 ng/mL Reviewed CTAP-11/08/23 PFSH Medical History Lower urinary tract symptoms Weight loss Centrilobular emphysema Tobacco dependence Varicose veins of both lower extremities with inflammation Callus of foot Arthralgia BPH w urinary obs/LUTS Tinea pedis of both feet Type 2 diabetes mellitus with hyperglycemia, with long-term current use of insulin Hammer toes of both feet Opioid use disorder Left foot pain Uncomplicated opioid dependence CAD (coronary artery disease) Diabetic acidosis, type II Surgical History History of heart artery stent Status post left hip replacement Social History Household Members: Spouse Housing: House Alcohol intake: never Patient Tobacco Use Status: Current everyday Tobacco user Cigarettes Per Day: 3 Current occupational status: disabled Review of Systems Const All systems reviewed & are unremarkable except as noted in HPI and below Reports no additional complaints Eyes Reports no additional complaints ENT Reports no additional complaints Card Reports no additional complaints Resp Reports no additional complaints GI Reports no additional complaints Reports as per HPI Musc Reports no additional complaints Skin/Breast Reports system reviewed and no additional complaints, except as documented Neuro Reports no additional complaints Psych Reports no additional complaints Endo Reports no additional complaints Anma/Lymph Reports no additional complaints Aller/Immun Reports no additional complaints Assessment & Plan Assessment & Plan (1) Urinary frequency: Code(s): R35.0 - Frequency of micturition Category: Medical (2) Nocturia: Code(s): R35.1 - Nocturia Category: Medical (3) Erectile dysfunction: Code(s): N52.9 - Male erectile dysfunction, unspecified Category: Medical (4) Urinary incontinence: Code(s): R32 - Unspecified urinary incontinence Category: Medical Plan Continue Mirabegron 25 mg for urinary urgency management. - Reduce fluid intake to 64 ounces daily to address nocturia and polyuria. - Maintain Tadalafil therapy as it is effective and may support bladder function. - FU to review urinary symptoms post reducing fluid intake Medications: Refilled tadalafil (Cialis) USE COUPON ATTACHED [id number] [facility] [id number] Member [id number] 5 mg PO DAILY 90 tabs 2RF Coding Level of Care Code Est Pt Level 4 (32442) Diagnoses Urinary frequency R35.0 Nocturia R35.1 Erectile dysfunction N52.9 Urinary incontinence R32
--- OUTSIDE RECORDS SUMMARY | 2025-03-01 08:33 | XMS_ITS | Encounter Summary ---
Author Organization [facility] Address [address] [place] [address] Care Team Providers Care Alignment Technician Name Role Phone Karlene Roldan MD Primary Care Provider Encounter Details Date Type Department Care Team ([facility] st Contact Info) Description 02/08/2025 Telephone Orthopedic Surgery - [place] [address] [facility] [address] [place] [address] Simran Simpson MA Social History Tobacco Use Types Packs/Day Years [...] as of this encounter Progress Notes * Anupama Brunner - 02/28/2025 1:33 PM EDT Attempted to reach back to coordinate surgery. The phone rings twice then goes to busy signal. Unable to leave message. * Simran Simpson MA - 02/08/2025 1:24 PM EDT Called and talked to patient about coordinating a date and time for surgery; pt said he will call back at another time documented in this encounter Plan of Treatment Upcoming Encounters Date Type Department Care Team (Late st Contact Info) Description 03/20/2025 11:00 AM EDT Appointment [facility] Endoscopy [address] [place] [phone] Naun Medrano DO [address] [facility] [address] [place] [address] Scheduled Procedures Name Priority Associated Diagnoses Date/Ti me ARTHROPLASTY TOE Hammer toe of left foot Contracture of joint of left foot Metatarsalgia of left foot documented as of this encounter Visit Diagnoses Not on filedocumented in this encounter Care Teams Alignment Technician Relationship Specialty Start Date End Date Karlene Roldan MD 230 [facility] 1 [place] [phone] PCP - General 05/07/23 documented as of this encounter
--- OUTSIDE RECORDS SUMMARY | 2025-03-01 08:33 | XMS_ITS | Clinical Summary ---
Author Organization [facility] Address [address] [place] [address] Care Team Providers Care Receivable Executive Name Role Phone Lala Mao Primary Care [...] 1 - PCV) 10/15/2023 Influenza Vaccine (#1) 2025 DTap / Tdap / Td (2 - [...] age to complete this topic Care Teams Receivable Executive Relationship Specialty Start Date End Date Lala Mao [address] [facility] [place] [address] PCP - General Internal Medicine 11/04/18
--- OUTSIDE RECORDS SUMMARY | 2025-03-01 08:33 | XMS_ITS | Encounter Summary ---
Author Organization [employer] Address [address] [place] [address] Care Team Providers Care Test Desk Operator Name Role Phone Karlene Roldan MD Primary Care Provider + Encounter Details Date Type Department Care Team ([facility] st Contact Info) Description 10/26/2023 Telephone [facility] MEDICINE [address] [place], [place] [phone] Karlene Roldan MD [address] [place], [place] [phone] Social History Tobacco Use Types Packs/Day Years [...] documented as of this encounter Care Teams Test Desk Operator Relationship Specialty Start Date End Date Karlene Roldan MD [address] [place] [address] PCP - General Internal Medicine 04/03/23 documented as of this encounter
== END 2025-03-01 09:16 | disposition home or self-care (01) ==
PROVIDERS: PCP Internal Medicine; Visit Provider Urology
DX: R35.0 Frequency of micturition (principal); R35.1 Nocturia; N52.9 Male erectile dysfunction, unspecified; R32 Unspecified urinary incontinence
CPT/HCPCS: 99214

== ENCOUNTER → 2025-03-01 08:28 | Outpatient (BNVA) | payer OTHER, SELFPAY | PROVIDERS: PCP Internal Medicine; Visit Provider Urology | DX: R35.0 Frequency of micturition (principal); R35.1 Nocturia; R32 Unspecified urinary incontinence; N52.9 Male erectile dysfunction, unspecified | CPT/HCPCS: 99212 ==

== ENCOUNTER 2025-05-17 08:18 | Outpatient (AMB) | payer OTHER, SELFPAY ==
--- NOTE | 2025-05-17 08:18 | A.OFFVIS_ITS ---
Intake Visit Reasons: 2m f/u Intake Note: Patient is present via telehealth for a 2m follow up Urology Medication:NONE Antibiotic Allergy:NONE Blood Thinner:NONE Web Offset Press Feeder Required: No Allergies No Known Allergies Allergy (Verified 05/17/25 08:19) Medication List - Last Reconciled 05/17/25 by Penelope Rosario MD acetaminophen (Tylenol Extra Strength) 500 mg PO Q6H PRN amlodipine 10 mg PO DAILY lidocaine 5% 1 patch topical DAILY losartan 25 mg PO DAILY metoprolol succinate ER 25 mg PO DAILY mirabegron ER (Myrbetriq) 25 mg PO DAILY pregabalin 75 mg PO BID tadalafil (Cialis) 5 mg PO DAILY HPI Comments Details: 05/17/25--Delvin is a 64-year-old male who has been followed for lower urinary tract symptoms of urgency frequency he presents as a 2 month telehealth follow- up he has been prescribed Myrbetriq and tadalafil. History of Present Illness The patient is a 64-year-old male presenting with lower urinary tract symptoms for a follow-up visit. He has been experiencing symptoms of urgency and frequency, which are being managed with Myrbetriq and tadalafil. The medications are reported to be effective in managing his symptoms. The patient adheres to his medication regimen, taking 25 mg of Myrbetriq as prescribed. Refills for both medications have been arranged for a 90-day supply. Plan 1. Lower Urinary Tract Symptoms - Continue Myrbetriq and tadalafil as prescribed. - Schedule follow-up in one year with blood work for prostate evaluation. 03/01/25--FU OAB symptoms. LV 12/11/24 started on Myrbetriq to replace vesicare for OAB, on Cialis for ED. - The patient is a 64-year-old male presenting with frequent urination and nocturia and ED. - States daily cialis is working well. - Reports frequent urination, especially nocturia, with 23 episodes in one night. - Currently on Mirabegron 25 mg, which has reduced urge incontinence during the day but not nocturia. - Consumes approximately 200 ounces of fluid daily, potentially exacerbating symptoms. - States he has a 20 ounce bottle that he fill >10 times during the day with water - Plan---- Continue Mirabegron 25 mg for urinary urgency management. - Reduce fluid intake to 64 ounces daily to address nocturia and polyuria. - Maintain Tadalafil therapy as it is effective and may support bladder function. 12/11/2024--Delvin is a 64-year-old male who is here for FU for complaints of urinary frequency both day and nighttime. He also states that sometimes he gets the urge and he will leak before getting to the bathroom. He has also noticed decrease in erections. LV-06/15/24--I discussed trial of daily Cialis for erectile dysfunction as well as trial of anticholinergic. VESIcare 5 mg for overactive bladder symptoms. Delvin states that the Cialis is working well and requests a 90 day supply. He states he took the VESIcare for a week but had to stop because of severe dry mouth. The patient states he needs to wear depends daily due to the urinary incontinence. Will send Myrbetriq 25 mg to take daily which does not cause dry mouth. We will follow-up in 30 days to review urinary symptoms on the Myrbetriq. We will continue PSA screening. Ftkcmxh-UUB-0/18/2024--0.31 06/15/24--Delvin is a 63-year-old male who is here with complaints of urinary frequency both day and nighttime. He also states that sometimes he gets the urge and he will leak before getting to the bathroom. He has also noticed decrease in erections. I have discussed trial of daily Cialis for erectile dysfunction as well as trial of anticholinergic VESIcare 5 mg for overactive bladder symptoms. 05/03/24--0.31 ng/mL Reviewed CTAP-11/08/23 [facility] Medical History Lower urinary tract symptoms Weight loss Centrilobular emphysema Tobacco dependence Varicose veins of both lower extremities with inflammation Callus of foot Arthralgia BPH w urinary obs/LUTS Tinea pedis of both feet Type 2 diabetes mellitus with hyperglycemia, with long-term current use of insulin Hammer toes of both feet Opioid use disorder Left foot pain Uncomplicated opioid dependence CAD (coronary artery disease) Diabetic acidosis, type II Surgical History History of heart artery stent Status post left hip replacement Social History Household Members: Spouse Housing: House Alcohol intake: never Patient Tobacco Use Status: Current everyday Tobacco user Cigarettes Per Day: 3 Current occupational status: disabled Review of Systems Const All systems reviewed & are unremarkable except as noted in HPI and below Reports no additional complaints Eyes Reports no additional complaints ENT Reports no additional complaints Card Reports no additional complaints Resp Reports no additional complaints GI Reports no additional complaints Reports as per HPI Musc Reports no additional complaints Skin/Breast Reports system reviewed and no additional complaints, except as documented Neuro Reports no additional complaints Psych Reports no additional complaints Endo Reports no additional complaints Anam/Lymph Reports no additional complaints Aller/Immun Reports no additional complaints Telehealth Telehealth Telehealth Platform: [employer] Location of provider rendering services: practice address Location of patient: address on file Patient Identification confirmed using: Name, : Yes Telehealth method: video Patient verbally consented to treatment: Yes Patient verbally consented to billing insurance company: Yes Patient informed of any privacy concerns related to visit: Yes Assessment & Plan Assessment & Plan (1) Screening PSA (prostate specific antigen): Code(s): Z12.5 - Encounter for screening for malignant neoplasm of prostate Category: Medical (2) Urinary frequency: Code(s): R35.0 - Frequency of micturition Category: Medical (3) Nocturia: Code(s): R35.1 - Nocturia Category: Medical (4) Erectile dysfunction: Code(s): N52.9 - Male erectile dysfunction, unspecified Category: Medical (5) Urinary incontinence: Code(s): R32 - Unspecified urinary incontinence Category: Medical Plan Plan 1. Lower Urinary Tract Symptoms - Continue Myrbetriq and tadalafil as prescribed. - tadalafil 5 mg daily - Schedule follow-up in one year with blood work for prostate evaluation. Orders: Orders PSA,Total (Free>4and<10) 10 Months Z12.5 - Encounter for screening for malignant neoplasm of prostate Medications: Refilled tadalafil (Cialis) USE COUPON ATTACHED [id number] [facility] [id number] Member [id number] 5 mg PO DAILY 90 tabs 3RF mirabegron ER (Myrbetriq) 25 mg PO DAILY 90 tabs 3RF Discontinued tadalafil (Cialis) USE COUPON ATTACHED [id number] [facility] [id number] Member [id number] Discontinued Reason: Duplicate 5 mg PO DAILY 90 tabs 2RF Patient Instructions: The patient had an opportunity to ask questions regarding treatment plan. The patient expressed understanding and agreement with the above treatment plan. The patient is aware they should contact our office by phone for worsening of their current condition or the appearance of new symptoms. Compliance is encouraged with any medications and followup testing that is ordered. It is a privilege to be allowed the opportunity to participate in the urologic care of your patient. If you have any questions or concerns regarding treatment for the above conditions please do not hesitate to contact me. The office telephone contact is [phone]. This note is constructed in part using voice recognition software. While every effort has been made to ensure accuracy aircraft instrument tester errors may have been included. Yours sincerely, Penelope Rosario MD Scribe Plan - Not visible on output: Patient was informed and verbally consented to the use of an ambient scribe for clinic note documentation during this visit. Coding Level of Care Code Tele Est Pt Level 4 (21854) Diagnoses Screening PSA (prostate specific antigen) Z12.5 Urinary frequency R35.0 Nocturia R35.1 Erectile dysfunction N52.9 Urinary incontinence R32
--- OUTSIDE RECORDS SUMMARY | 2025-05-17 08:27 | XMS_ITS | Encounter Summary ---
Author Organization [employer] Address [address] [place] [address] Care Team Providers Care Section Hand Name Role Phone Karlene Roldan MD Primary Care Provider + Reason for Visit * Reason Comments Med Refill Encounter Details Date Type Department Care Team ([facility] st Contact Info) Description 04/02/2025 Refill [facility] [address] [place] [address] Mckenzie Adan MD [address] [place] [address] Social History Tobacco Use Types Packs/Day Years Used Date Smoking Tobacco: Some Days Cigarettes Last attempted to quit: 10/01/2023 Passive Smoke Exposure: Current Smokeless Tobacco: Never Alcohol Use Standard Drinks/Week Comments Not Currently 0 (1 standard drink = 0.6 oz pur e alcohol) Depression Answer Date Recorded Patient Health Questionnaire-9 Score 0 12/14/2024 Patient Health Questionnaire-9 Score 0 12/14/2024 Last PHQ-9: Questionnaire Data Not on file 0 12/14/2024 Housing Stability Answer Date Recorded What is [...] Date Recorded Patient Health Questionnaire-2 Score 0 12/14/2024 Internet Access Answer Date Recorded Internet Access [...] Assessment Noted Time PHQ-9 Depression Total Score: 0 12/15/19 25 11:22 AM EDT documented as of this encounter Care Teams Section Hand Relationship Specialty Start Date End Date Karlene Roldan MD [address] [place] [address] PCP - General Internal Medicine 04/03/23 documented as of this encounter
--- OUTSIDE RECORDS SUMMARY | 2025-05-17 08:27 | XMS_ITS | Encounter Summary ---
Author Organization [employer] Address [address] [facility] [address] [place] [address] Care Team Providers Care Qa Auditor Name Role Phone Karlene Roldan MD Primary Care Provider + Reason for Visit * Reason Comments Med Refill Encounter Details Date Type Department Care Team ([facility] st Contact Info) Description 05/14/2025 Refill [facility] MEDICINE [address] [place] [address] Karlene Roldan MD [address] [place] [address] Chronic bilateral low back pain without sciatica [...] documented as of this encounter Care Teams Qa Auditor Relationship Specialty Start Date End Date Karlene Roldan MD [address] [place] [address] PCP - General Internal Medicine 04/03/23 documented as of this encounter
--- OUTSIDE RECORDS SUMMARY | 2025-05-17 08:27 | XMS_ITS | Encounter Summary ---
Author Organization [employer] Address [address] [facility] [address]t [place] [address] Care Team Providers Care Contracts Administrator Name Role Phone Karlene Roldan MD Primary Care Provider + Encounter Details Date Type Department Care Team ([facility] st Contact Info) Description 10/26/2023 Telephone [facility] MEDICINE [address] [place] [address] Karlene Roldan MD [address] [place] [address] Social History Tobacco Use Types Packs/Day Years [...] documented as of this encounter Care Teams Contracts Administrator Relationship Specialty Start Date End Date Karlene Roldan MD [address] [place] [address] PCP - General Internal Medicine 04/03/23 documented as of this encounter
--- OUTSIDE RECORDS SUMMARY | 2025-05-17 08:27 | XMS_ITS | Clinical Summary ---
Author Organization [facility] Address [address] [place] [address] Care Team Providers Care Professional Athletes Coach Name Role Phone Lala Mao Primary Care Provider [phone] Allergies No known active allergies Medications Medication [...] age to complete this topic Care Teams Professional Athletes Coach Relationship Specialty Start Date End Date Lala Mao [address] [facility] [place] [address] PCP - General Internal Medicine 11/04/18
--- OUTSIDE RECORDS SUMMARY | 2025-05-17 08:27 | XMS_ITS | Encounter Summary ---
Author Organization [employer] Address [address] [place] [address] Care Team Providers Care Purification Director Name Role Phone Karlene Roldan MD Primary Care Provider + Reason for Visit * Reason Comments Med Refill Encounter Details Date Type Department Care Team ([facility] st Contact Info) Description 05/28/2023 Refill [facility] [address] [place] [address] [phone] Karlene Roldan MD [address] [place] [address] Lumbar radiculopathy Social History Tobacco Use Types [...] documented as of this encounter Care Teams Purification Director Relationship Specialty Start Date End Date Karlene Roldan MD [address] [place] [phone] PCP - General Internal Medicine 04/03/23 documented as of this encounter
--- OUTSIDE RECORDS SUMMARY | 2025-05-17 08:27 | XMS_ITS | Encounter Summary ---
Author Organization [employer] Address [address] 7[address] [place] [address] Care Team Providers Care Dermatology Specialist Name Role Phone Karlene Roldan MD Primary Care Provider + Reason for Visit * Reason Comments Med Refill Encounter Details Date Type Department Care Team (Late st Contact Info) Description 03/20/2025 Refill [facility] [address] [place], [place] [phone] Karlene Roldan MD [address] [place] [address] Dyspepsia; Tobacco use disorder Social History Tobacco Use Types Packs/Day Years [...] other specified disorders of function of stomach Tobacco use disorder documented in this encounter Additional Health Concerns Assessment Noted Time PHQ-9 Depression Total Score: 0 12/15/19 25 11:22 AM EDT documented as of this encounter Care Teams Dermatology Specialist Relationship Specialty Start Date End Date Karlene Roldan MD [address] [place] [phone] PCP - General Internal Medicine 04/03/23 documented as of this encounter
--- OUTSIDE RECORDS SUMMARY | 2025-05-17 08:27 | XMS_ITS | Encounter Summary ---
Author Organization [employer] Address [address] 7[address] [place] [address] Care Team Providers Care Home Service Demonstrator Name Role Phone Karlene Roldan MD Primary Care Provider + Reason for Visit * Reason Comments Med Refill Encounter Details Date Type Department Care Team (Late st Contact Info) Description 07/02/2024 Refill [facility] [address] [place] [address] Fernanda Evangelista BDS Social History Tobacco Use [...] documented as of this encounter Care Teams Home Service Demonstrator Relationship Specialty Start Date End Date Karlene Roldan MD [address] [place] [phone] PCP - General Internal Medicine 04/03/23 documented as of this encounter
--- OUTSIDE RECORDS SUMMARY | 2025-05-17 08:28 | XMS_ITS | Encounter Summary ---
Author Organization [employer] Address [address] [facility] 7t [place] [address] Care Team Providers Care Stock Transfer Clerk Name Role Phone Karlene Roldan MD Primary Care Provider + Reason for Visit * Reason Onset Date Comments Med Refill 04/20/2024 Encounter Details Date Type Department Care Team ([facility] st Contact Info) Description 04/20/2024 Telephone [facility] [address] [place], [place] [phone] Karlene Roldan MD [address] [place] [address] Med Refill Social History Tobacco Use Types [...] 25 MG tablet To be sent to: [facility] - [place], [place] - [address] [place] [address] documented in this encounter Plan of Treatment Not on file documented as of this encounter Visit Diagnoses Not on filedocumented in this encounter Additional Health Concerns Assessment Noted Time PHQ-9 Depression Total Score: 6 03/09/20 23 11:28 AM EDT documented as of this encounter Care Teams Stock Transfer Clerk Relationship Specialty Start Date End Date Karlene Roldan MD [address] [facility] [place] [address] PCP - General Internal Medicine 04/03/23 documented as of this encounter
--- OUTSIDE RECORDS SUMMARY | 2025-05-17 08:28 | XMS_ITS | Encounter Summary ---
Author Organization [employer] Address [address] [place] [address] 7t [place] [address] Care Team Providers Care Diesel Pile Hammer Operator Name Role Phone Karlene Roldan MD Primary Care Provider + Reason for Visit * Reason Comments Med Refill Encounter Details Date Type Department Care Team (Late st Contact Info) Description 03/26/2023 Refill [facility] [address] [place] [address] Niels Sterling MD [address] [place] [address] Uncomplicated opioid dependence (CMS/HCC) Social History Tobacco [...] Visit Diagnoses Diagnosis Uncomplicated opioid dependence (CMS/HCC) (HCC) documented in this encounter Additional Health Concerns Assessment Noted Time PHQ-9 Depression Total Score: 6 03/09/20 23 11:28 AM EDT documented as of this encounter Care Teams Diesel Pile Hammer Operator Relationship Specialty Start Date End Date Karlene Roldan MD [address] [place] [phone] PCP - General Internal Medicine 04/03/23 documented as of this encounter
--- OUTSIDE RECORDS SUMMARY | 2025-05-17 08:28 | XMS_ITS | Clinical Summary ---
Author Organization [employer] Address [address] [place] [address] 7t [place] [address] Care Team Providers Care Before School Name Role Phone Karlene Chamorro MD Primary Care Provider + Allergies Active Allergy Reactions Criticality Noted Date Comments Ibuprofen Swelling Low 07/29/2021 Leg swelling reported Metformin Diarrhea 02/29/2024 Medications Dupixent 300 MG/2ML injection 023 Active metoprolol succinate XL (Toprol-XL) 25 MG 24 hr tablet Take 12.5 mg by mouth 2 times daily. 023 Active nicotine polacrilex (Commit) 2 MG lozengeIndication [...] MG chewable tabletIndications :Atherosclerotic heart disease of [place] coronary artery without angina pectoris CHEW 1 TABLET BY MOUTH EVERY DAY 30 tablet 11 024 Active atorvastatin (Lipitor) 20 MG tablet Take 1 tablet by mouth Once per day. 025 Active docusate sodium (Colace) 100 MG capsuleIndication s:Constipation, unspecified constipation type TAKE 1-2 CAPSULES BY MOUTH AT BEDTIME NEEDED FOR CONSTIPATION 60 capsule 2 025 Active naproxen (Naprosyn) 500 MG tabletIndications :Osteoarthritis of right knee, unspecified osteoarthritis type TAKE 1 TABLET BY MOUTH TWICE DAILY 60 tablet 2 025 Active famotidine (Pepcid) 20 MG tabletIndications :Dyspepsia Take 1 tablet (20 mg) by mouth 2 times daily. 60 tablet 025 Active losartan (Cozaar) 25 MG tabletIndications :Type 2 diabetes mellitus without complications (HCC) TAKE 1 TABLET BY MOUTH EVERY DAY 90 tablet 025 Active pregabalin (Lyrica) 150 MG capsuleIndication s:Chronic bilateral low back pain without sciatica TAKE 1 CAPSULE BY MOUTH EVERY SIX HOURS DURING THE DAY 120 capsule 025 Active losartan (Cozaar) 25 MG tabletIndications :Type 2 diabetes mellitus without complications (HCC) TAKE 1 TABLET BY MOUTH EVERY DAY 90 tablet 025 2024 Discontinued(R eorder (will not trigger notification to Pharmacy)) pregabalin (Lyrica) 150 MG capsuleIndication s:Chronic bilateral low back pain without sciatica Take 1 capsule (150 mg) by mouth every 6 (six) hours during the day. 120 capsule 025 2024 Discontinued famotidine (Pepcid) 20 MG tabletIndications :Dyspepsia Take 1 tablet (20 mg) by mouth 2 times daily. 60 tablet 025 2024 Discontinued(R eorder (will not trigger notification to Pharmacy)) Active Problems Problem Noted Date Diagnosed Date Constipation 12/14/2024 Assessment & Plan (12/14/2024 3:49 PM EDT): Use Colace as needed and OTC fiber based products advised increase water intake. He is colonoscopy is up-to-date, had a TA in 2017 and is due to follow-up with GI Arthritis of left ankle 09/05/2024 Contracture of joint of left foot 09/05/2024 Hammer toe of left foot 09/05/2024 Metatarsalgia of left foot 09/05/2024 Verruca plantaris 09/05/2024 Herniated lumbar intervertebral disc 06/05/2024 Overview (11/13/2024): L4, L5 and SI Assessment & Plan (12/14/2024 3:58 PM EDT): Increase Lyrica to 150 mg 3 times daily and continue Tylenol as needed. Hold for sedation Follow-up with pain clinic in [place] for possible epidural injection. He has PT referral and will reschedule appointment as needed Continue relation with cane, risk of falls discussed with patient he, he has DME at home to prevent falls Mixed stress and urge urinary incontinence 04/28 Assessment & Plan (04/28/2024 2:55 PM EDT): Need to follow up with Urologist. Ordered UA culture and r/o STIs and treat accordingly. Gave them information to reschedule with Urologist. Primary osteoarthritis of right knee 04/28/2024 Assessment & Plan (12/14/2024 3:55 PM EDT): I gave him information for [facility] orthopedics where he was seen last year, needs to follow-up with possible steroid injection if symptoms do not resolve with epidural injection and ambulation with a cane use Lyrica 3 times daily for lumbar radiculopathy Assessment & Plan (12/14/2024 11:34 AM EDT): >>ASSESSMENT AND PLAN FOR OSTEOARTHRITIS OF RIGHT KNEE WRITTEN ON 10/06/2024 11:56 AM BY BERE GABRIEL CNP Pt has OA, this is a chronic issue Pt agreeable to trying naproxen 500 mg BID for pain control, advised pt to call if not tolerated. Pt denies anaphylaxis or angioedema with ibuprofen. Referred to PT Advised pt to f/u with PCP Assessment & Plan (04/28/2024 2:55 PM EDT): [...] apnea) 11/25/2023 Overview (11/25/2023): Sleep study at [facility] (see [facility] records) showed AHI 26 Epigastric pain 10/21/2023 Assessment & Plan (11/25/2023 3:25 PM EDT): Due to hx smoking + weight loss, I will refer to GI ([facility]). Counseled to quit smoking Advised to monitor fgtsk prn hypoglycemic sxs. FU in 2-3m, consider dc Aliza if GI w/u is NEG, recent CT scan abd is not showing source of pain. Assessment & Plan (10/21/2023 3:33 PM EST): Seems to be related to dyspepsia? I would like to hold Omidulicty x 1mo , but patient declines to [...] found on CT scan in 2020 from [facility], probably at the time of ACS. [...] at next appt and discuss surgical options Tinea pedis of both feet 06/02/2023 Assessment & Plan (06/02/2023 12:51 PM EDT): Keep toes clean and dry Use clotrimazole cream + Zinc oxide ointment on affected interdigital areas Benign localized prostatic h yperplasia with lower urinary tract symptoms (LUTS) 06/02/2023 Assessment & Plan (12/14/2024 3:54 PM EDT): Doing well status post urology evaluation With [facility] Assessment & Plan (04/28/2024 2:54 PM EDT): [...] Wear compression stockings. Refer to vascular surgery Left foot pain 04/03/2023 Assessment & Plan (04/03/2023 12:26 PM EDT): Unclear if related to neuropathy. PDMP reviewed, last lyrica fill was on 12/18/21. Restart Lyrica and use tylenol prn. May need a cane for ambulation, will fu in 1m for an OV and exam. Hyperlipidemia 05/05/2022 Eczema 04/08/2022 Nonsustained ventricular tachycardia (CMS/HCC) 0 09/23/2021 Primary hypertension 09/23/2021 Coronary artery disease invo lving [place] coronary artery of [place] heart without angina pectoris 09/23/2021 Obstructive sleep apnea 09/01/2021 Overview (11/13/2024): [facility] Home sleep test 08/28/2021; weight 219; BMI 31; AHI 26, AI 15, AHI 12. 10 unclassified apneas, 80 obstructive apneas, 2 central apneas and 74 hypopneas. Overall oxygen saturation 90%; oxygen vanessa 73%. Obstructive sleep apnea-moderate with mostly obstructive apneas and hypopneas; with nocturnal hypoxemia based on 2021 home sleep test. Type 2 diabetes mellitus wit h hyperglycemia, with long-term current use of insulin 08/13/2021 Assessment & Plan (12/14/2024 3:59 PM EDT): Resolved. A1c has been consecutively low for more than 6 months. It was probably related to epidural injections plus obesity. Advised to continue ambulation as tolerated, keep weight 160-180s max Continue off Trulicity and will check RBS and A1c in 1 year Advise to check RBS after epidural injection, if he continues with hyperglycemia for more than 2 weeks, he can call back as needed Assessment & Plan (04/28/2024 2:56 PM EDT): [...] unclear if he'll continue to FU with [facility] endocrinology [place]. I will rx Trulicity if needed. Counseled re more frequent low calorie/carb meals. Check fgstk 1x daily Encouraged physical activity as tolerated. FU in 4 months. Paroxysmal atrial fibrillation (CMS/HCC) 021 STEMI involving right coronary artery 08/13/2021 CAD (coronary artery disease) 07/24/2021 Overview (04/03/2023): Sp STEMI and PCI/stent to RCA ([facility] htal). ECG with LVH + EF 75% -Metoprolol [...] outside hospital 07/13/2021 per [facility] records [facility]. Continue current meds: -Metoprolol tartrate 12.5 mg twice daily -Losartan 25 mg daily -Atorvastatin 80 mg daily -Aspirin 81 mg daily -Counseled to quit smoking. -Will fu with cardiology Pneumonia due to COVID-19 virus 07/24/2021 Lumbar radiculopathy 09/07/2019 Overview (11/25/2023): Had PT, epidural injections in the past. Last Assessment & Plan: According to discharge paperwork from [facility], he was discharged on methocarbamol, which we will continue as needed, as well as Tylenol for pain. Assessment & Plan (12/14/2024 3:48 PM EDT): Has been unable to follow-up with PT due to significant mobilization issues. He has done PT in the past and is doing home based exercises Continue relation with cane and follow-up with pain clinic this month, may need epidural injection Increase Lyrica to 150 3 times daily, hold for sedation. He will follow-up with orthopedics if knee osteoarthritis symptoms continue despite of low back pain Assessment & Plan (04/28/2024 2:54 PM EDT): [...] w me in 1m Obtain records form [facility] pain clinic/neurology Status post left hip replacement [...] Overview (11/13/2024): 2017 CN, Repeat 5 yrs Assessment & Plan (12/14/2024 4:00 PM EDT): On 2016. Referred to GI for repeat colonoscopy Neuropathic pruritus 10/05/2016 Overview (11/13/2024): Derm(09/16/16): gabapentin initiated Post herpetic neuralgia 10/01/2016 Overview (11/13/2024): T8 -L1 Resolved Problems Problem Noted Date Diagnosed Date Resolved Date Hematuria 06/21/2024 12/14/2024 Assessment & Plan (06/21/2024 3:49 PM EST): I will treat empirically for a UTI Renal US is pending Continue to f/u with urology and PCP Gross hematuria 06/06/2024 12/14/2024 Assessment & Plan (06/06/2024 3:01 PM EDT): Pt with evidence of gross hematuria from penis, per picture. No pain or injury to the penis or testicles. Has follow-up with Urology. -ordered urine and kidney us 06/06/24 Uncomplicated opioid dependence ([facility]) 04/03/2023 12/14/2024 Assessment & Plan (11/25/2023 3:30 PM EDT): >>ASSESSMENT AND PLAN FOR OPIOID USE DISORDER WRITTEN ON 04/03/2023 12:25 PM BY KARLENE CHAMORRO MD Suboxone clinic notes reviewed, seems to be doing wellwith 1x/d dosing, continue close fu with them. PDMP reviewed, last suboxone fill was on 03/26 x 7 days. Rx for suboxone x 3 doses only sent to [facility] pharmacy in [place] as he missed regular pharmacy sheeps[facility] pick[facility] yesterday and it is closed for the weekend, he has mild withdrawal sxs. Patient will sheepskin pickler remaining dose on Wednesday, will contact his [...] recreational substances, re consult prn opiate cravings Hypertrophic cardiomyopathy (CMS/HCC) 08/13/2021 11/13/2024 Aortic atherosclerosis 03/22/201911/13 Encounters Date Type Department Care Team Description 05/14/2025 Refill [facility] [address] [place] [address] Karlene Chamorro MD Chronic bilateral low back pain without sciatica 04/30/2025 Refill [facility] [address] [place] [address] Karlene Chamorro MD Type 2 diabetes mellitus without complications (CMS/HCC) 04/26/2025 Refill [facility] [address] [place] [address] Karlene Chamorro MD Dyspepsia 04/02/2025 Refill [facility] [address] [place] [address] Mckenzie Adan MD 03/20/2025 Telephone [facility] [address] [place] [address] Karlene Chamorro MD Med Refill 03/20/2025 Refill [facility] [address] [place] [address] Bere Gabriel CNP Osteoarthritis of right knee, unspecified osteoarthritis type; Chronic bilateral low back pain without sciatica; Dyspepsia 03/20/2025 Refill [facility] [address] [place] [address] Karlene Chamorro MD Dyspepsia; Tobacco use disorder 03/02/2025 Telephone [facility] [address] [place] [address] Regina Zimmer from Last 3 Months Immunizations Immunization Administration Dates Next Due Influenza injectable quadrivalent [...] Sign Reading Time Taken Comments Blood Pressure 132/70 12/14/2024 11:21 AM EDT Pulse 77 12/14/2024 11:21 AM EDT Temperature 37.1 C (98.7 F) 12/14/2024 11:21 AM EDT Respiratory Rate 21 12/14/2024 11:21 AM EDT Oxygen Saturation 100% 12/14/2024 11:21 AM EDT Inhaled Oxygen Concentration - - Weight 88.5 kg (195 lb) 12/14/2024 11:21 AM EDT Height 180.3 cm (5' 11 ) 12/14/2024 11:21 AM EDT Body Mass Index 27.2 12/14/2024 11:21 AM EDT Plan of Treatment Health Maintenance Due Date Last Done Comments CT Colonography 1958 Colonoscopy 1958 Colorectal Cancer Screening 1958 Dental Prophylaxis 1958 FIT DNA/Cologuard 1958 FIT 1958 FOBT 1958 Sigmoidoscopy 1958 Eye Exam 1968 Diabetes: Urine Protein Screening 1977 Pneumococcal Vaccine: 50+ Years (1 of 2 - PCV) 1977 Zoster Vaccines (1 of 2) 2008 RSV Patients and Patients Aged 60 years or older (1 - Risk 60-74 years 1-dose series) 2018 Diabetes: Foot Exam 06/02/2024 06/02/2023, 06/02/2023, 06/02/2023, Additional history exists Lipid Panel 07/07/2024 07/07/2023 COVID-19 Vaccine ( season) 2025 Influenza Vaccine (#1) 2025 08/01/2021 Dental Oral Exam 05/16/2025 11/13/2024 Diabetes: Hemoglobin A1C 06/16/2025 025, 05/09/2024, 04/28/2024, Additional history exists SDOH Screening 09/07/2025 09/07/2024 Dental X-Ray: Bitewings 11/14/2025 11/13/2024 Alcohol/Substance Use Screening 12/14/2025 12/14/2024 Depression Screening 12/14/2025 12/14/2024, 12/15/19 Tobacco Screening 12/14/2025 12/14/2024 DTaP/Tdap/Td Vaccines (2 - Td or Tdap) [...] Procedure Name Priority Date/Time Associated Diagnosis Comments POCT GLYCATED HEMOGLOBIN, TOTAL Routine 12/14/2024 11:25 AM EDT Type 2 diabetes mellitus with hyperglycemia, with long-term current use of insulin ([facility]) INTRAORAL - COMPLETE SERIES OF RADIOGRAPHIC IMAGES Routine 11/13/2024 9:00 AM EDT Encounter for dental examination Dental calculus Periodontal disease Acute periodontal abscess COMPREHENSIVE ORAL EVALUATION - NEW OR ESTABLISHED PATIENT Routine 11/13/2024 9:00 AM EDT Encounter for dental examination Dental calculus Periodontal disease Acute periodontal abscess HEPATITIS C AB W/REFL TO HCV RNA, QN, PCR Routine 07/07/2023 12:30 PM EST Opioid use disorder LIPID PANEL, STANDARD Routine 07/07/2023 12:30 PM EST Opioid use disorder from Last 3 Months or Most Recently Relevant to Health Maintenance Results * POCT HGB A1C (12/14/2024 11:25 AM EDT) Hemoglobin A1C 5.6 4.0 - 6.0 % QC Media Lot # [id number] Lot# Expiration Date Blood 12/14/2024 11:2 5 AM EDT Karlene Chamorro MD POINT OF CARE TEST ENTER /EDIT ORDERABLES Final Result * Hepatitis C Antibody with Reflex to HCV, RNA, Quantitative, Real-Time PCR (07/07/2023 12:30 PM EST) Hepatitis C Antibody Nonreactive Nonreactive [facility] Comment:Antibodies to HCV no t detected; does not exclude early acuteHCV infection. 07/07/2023 12:3 0 PM EST 07/07/2023 1:13 PM EST us Karlene Chamorro MD LAB BLOOD ORDERABLES Fin al Result Performing Organization Address City/[facility] Co de Phone Number [facility] [address] [place] [address] [phone] * (ABNORMAL) Lipid Panel, Standard (07/07/2023 12:30 PM EST) Triglycerides 49 <150 mg/dL [facility] Comment:Desirable Triglyceri de: less than 150 mg/dLBorderline High Triglyceride 150-199 mg/dLHigh Triglyceride: 200-499 mg/dLVery High Triglyceride: greater than or equal to 5OO mg/dL Cholesterol 160 <200 mg/dL [facility] Comment:Desirable Cholestero l: less than 200 mg/dLBorderline High Cholesterol: 200-239 mg/dLHigh Cholesterol: greater than 239 mg/dL LDL Cholesterol Calculated 101(H) <100 mg/dL [facility] Comment:Desirable LDL: less than 100 mg/dLNear Optimal/Above Optimal LDL: 110- 129 mg/dLBorderline High LDL: 130-159 mg/dLHigh LDL: 160-189 mg/dLVery High LDL: greater than or equal to 190 mg/dL HDL Cholesterol 50 >40 mg/dL [facility] Comment:Desirable HDL: great er than 40 mg/dL Note: This HDL assay may give artificially low results in patients with liver disease. 07/07/2023 12:3 0 PM EST 07/07/2023 1:13 PM EST us Karlene Chamorro MD LAB BLOOD ORDERABLES Fin al Result Performing Organization Address City/[facility]/ZIP Co de Phone Number [facility] [address] [place] [address] [phone] from Last 3 Months or Most Recently Relevant to Health Maintenance Insurance [facility] CARE < [address] [place] [id number] [facility]AL [facility] Care Teams Before School Relationship Specialty Start Date End Date Karlene Chamorro MD [address] [place] [phone] PCP - General Internal Medicine 04/03/23
--- OUTSIDE RECORDS SUMMARY | 2025-05-17 08:28 | XMS_ITS | Clinical Summary ---
Author Organization [facility] Address [address] [place] [address] Phone Care Team Providers Care Grain Broker Name Role Phone Karlene Roldan MD Primary [...] mouth daily. 4 Active acetaminophen (TYLENOL ORAL) Take by mouth. Active freestyle (Push Button Safety Lancets) [...] 30 each 11 5 09/07/19 26 Active chlorhexidine (PERIDEX) 0.12 % solution Use 15 mL in the mouth or throat if needed for wound care. Active metoprolol succinate (TOPROL-XL) 25 mg 24 hr tablet Take 1 tablet (25 mg total) by mouth 1 (one) time each day. Do not crush or chew. Active naproxen (EC NAPROSYN) 500 mg EC tablet Take 1 tablet (500 mg total) by mouth 1 (one) time each day with breakfast. Do not crush, chew, or split. Active nicotine polacrilex (COMMIT) 2 mg lozenge Dissolve 1 lozenge (2 mg total) in the mouth every 2 (two) hours if needed for smoking cessation. Active pregabalin (LYRICA) 150 mg capsule Take 1 capsule (150 mg total) by mouth 2 (two) times a day. Active polyethylene glycol (Golytely) 236-22.74-6.74 -5.86 gram solution Take 4L by mouth once for one dose. May substitue any PEG. Starting at 2PM the day before your procedure drink 1 8oz glasses at your own pace until you complete half of the gallon. Finish 2nd half of the gallon at 8PM. 4000 mL 5 Active bisacodyL (DULCOLAX) 5 mg EC tablet Take 2 tablets by mouth right before beginning bowel prep. See instructions provided by the office 2 tablet 5 Active Active Problems Problem Noted Date Diagnosed Date Arthritis of left ankle 09/05/2024 Metatarsalgia of left foot 09/05/2024 Hammer toe of left foot 09/05/2024 Contracture of joint of left foot 09/05/2024 Verruca plantaris 09/05/2024 Herniated lumbar intervertebral disc 06/05/2024 Overview (06/05/2024): L4, L5 and SI Sciatica 06/05/2024 Hyperlipidemia 05/05/2022 Eczema 04/08/2022 Coronary artery disease invo lving [place] coronary artery of [place] heart without angina pectoris 09/23/2021 Nonsustained ventricular tac hycardia ([facility] V24, [facility] V28) 09/23/2021 Primary hypertension 09/23/2021 Obstructive sleep apnea 09/01/2021 Overview (06/05/2024): [facility] Home sleep test 08/28/2021; weight 219; BMI 31; AHI 26, AI 15, AHI 12. 10 unclassified apneas, 80 obstructive apneas, 2 central apneas and 74 hypopneas. Overall oxygen saturation 90%; oxygen vanessa 73%. Obstructive sleep apnea-moderate with mostly obstructive apneas and hypopneas; with nocturnal hypoxemia based on 2021 home sleep test. Hypertrophic cardiomyopathy ([facility] V24, [facility] V28) 08/13/2021 Paroxysmal atrial fibrillation ([facility] V24, [facility] V28) 08/13/2021 Pneumonia due to COVID-19 virus 08/13/2021 STEMI involving right key ry artery ([facility] V24, [facility] V28) 08/13/2021 Type 2 diabetes mellitus wit hout complication, without long-term current use of insulin ([facility] V24, [facility] V28) 08/13/2021 Aortic atherosclerosis ([facility] V24) 03/22/2019 Osteoarthritis 03/22/2019 Overview (06/05/2024): Thoracic, [...] herpetic neuralgia 10/01/2016 Overview (06/05/2024): T8 -L1 Immunizations Immunization Administration Dates Next Due Tdap Tetanus diptheria acell ular pertussis (Boostrix; Adacel) 7yo and older 12/09/2016 Surgical History Surgery Date Site/Laterality Comments BACK SURGERY 05/07/2016 PROCEDURE: HISTORICAL BACK SURGERY; COMMENT: lumbar fusion with grafting of the facet joints at L3-4 and L4-5 levels, Dr. Conor Chapman OTHER SURGICAL HISTORY 11/03/2013 PROCEDURE: SKIN GRAFT <100SQCM; [facility] 12/07/16 PROCEDURE: HISTORICAL COLONOSCOPY; COMMENT: [...] - - Weight 87.1 kg (192 lb) 01/11/2025 9:52 AM EDT Height 177.8 cm (5' 10 ) 01/11/2025 9:52 AM EDT Body Mass Index 27.55 01/11/2025 9:52 AM EDT Plan of Treatment Health Maintenance Due Date Last Done Comments Diabetes: Annual Foot Exam 1968 Diabetes: Annual Retina Eye Exam 1968 Pneumococcal Vaccine: 50+ Years (1 of 2 - PCV) 1977 Zoster Vaccines (1 of 2) 2008 RSV Immunization Adult Patients (1 - Risk 60-74 years 1-dose series) 2018 Colorectal Cancer Screening: Colonoscopy 12/07/2021 12/07/2016 Abdominal Aortic Aneurysm (AAA) Screen 07/25/2022 Medicare Annual Wellness Visit 07/25/2022 Social Influencers of Health Screening 07/25/2022 Falls Risk Assessment 10/15/2023 Diabetes: Annual Urine Albumin-Creatinine Ratio (uACR) 01/05/2024 01/04/2023 Depression Screening 08/16/2024 COVID-19 Vaccine ( season) 2025 08/06/2022, 01/29/2022, 09/05/2021 Influenza Vaccine (#1) 2025 08/01/2021 Diabetes: Annual GFR (Glomerular Filtration Rate) 05/09/2025 05/09/2024, 05/09/2024 Hypertension/CHF/CAD Annual BMP Blood Test 05/09/2025 05/09/2024, 05/09/2024 Diabetes: Blood Sugar Control Test (HGBA1C) 06/16/2025 12/14/2024, 05/09/2024, 05/09/2024, Additional history exists DTaP,Tdap,and Td Vaccines (3 - Td or [...] Results * Annual BMP Blood Test (05/09/2024) [facility] Annual BMP Blood Test Abstracted Result [facility] Provider HEALTH MAINTENANCE Final Result * Hemoglobin A1c (05/09/2024) [facility] Hemoglobin A1C 5.9 <=6.5 % Blood Venous blood specimen / Unknown Result [facility] Provider LAB BLOOD ORDERABLES Darlyn l Result * Lipid panel (05/09/2024) [facility] LDL/HDL Ratio 2 0 - 4 Triglycerides 40 0 - 150 mg/dL Cholesterol 144 0 - 200 mg/dL HDL 60 >=40 mg/dL LDL Cholesterol 76 0 - 100 mg/dL Blood Venous blood specimen / Unknown Result [facility] Provider LAB BLOOD ORDERABLES Darlyn l Result * Urine Albumin Creatinine Ratio (01/04/2023) [facility] Urine Albumin Creatinine Ratio Abstracted Result [facility] Provider HEALTH MAINTENANCE Final Result * Hepatitis C Screening (03/03/2017) [facility] Hepatitis C Screening Abstracted Result [facility] Provider HEALTH MAINTENANCE Final Result * Colonoscopy (12/07/2016) [facility] Colonoscopy No interpretation with ,abstracted Anatomical Region Laterality Modality Other Result [facility] Provider HEALTH MAINTENANCE Final Result from Last 3 Months or Most Recently Relevant to Health Maintenance Insurance MEDICARE Member Subscriber Plan / Payer (Ef fective 2017-Present) Name:DELVIN MICHELLE Relation to Subscriber:Self Name:Delvin Michelle Payer ID:[id number] Group ID:[id number] Type:Not on file Address: [address] [phone] Advance Directives Documents on File Type Date 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
== END 2025-05-17 11:41 | disposition home or self-care (01) ==
LOC: HO.HUSH 08:18
PROVIDERS: PCP Internal Medicine; Visit Provider Urology
DX: Z12.5 Encounter for screening for malignant neoplasm of prostate (principal); R35.0 Frequency of micturition; R35.1 Nocturia; N52.9 Male erectile dysfunction, unspecified; R32 Unspecified urinary incontinence
CPT/HCPCS: 99214